=== PATIENT | male | born 1950 | race African-American/Black ===

== ENCOUNTER 2017-12-01 12:38 | Observation (INO) | payer MEDICARE, OTHER ==
--- NOTE | 2017-12-01 14:08 | RAD ---
CHEST 1 VIEW: Date: 12/01/17 HISTORY: Weakness. Dyspnea. COMPARISON: 01/02/17. FINDINGS: Cardiac silhouette is magnified by projection. Pulmonary vasculature unremarkable. Mediastinum is mid line. No lobar consolidation or evidence of pneumothorax. Deformity of the left humeral neck has the appearance of an incompletely healed fracture or injury. IMPRESSION: 1. No active cardiopulmonary abnormalities are demonstrated. 2. Abnormality of the left shoulder partially visualized. Correlation with recent shoulder injury hi story is required. POS: [facility]
[2017-12-01 14:20] LABS: #Basophils 0.1 thou/uL (0.0-0.2); #Eosinphils 0.1 thou/uL (0.0-0.7); #Lymphocytes 2.8 thou/uL (1.20-3.40); #Neutrophils 5.9 thou/uL (1.40-6.50); %Basophils 0.8 % (0.0-1.0); %Eosinophils 0.8 % (0.0-10.0); %Lymphocytes 28.4 % (21.0-51.0); %Monocytes 10.2 % (0.0-10.0); %Neutrophils 59.9 % (42.0-75.0); Hemoglobin 12.1 g/dL (14.0-18.0); Mean Corpuscular HGB CONC 32.7 g/dL (32.0-36.0); Mean Corpuscular Hemoglobin 31.1 pg (27.0-31.0); Platelet Count 334 thou/uL (130-400); RBC Distribution Width 12.7 % (11.5-14.5); White Blood Cell (WBC) Count 9.9 thou/uL (4.8-10.8)
[2017-12-01 14:40] LABS: ALT (SGPT) 9 U/L (8-55); AST (SGOT) 9 U/L (5-34); Albumin 3.8 g/dL (3.4-4.8); Alkaline Phosphatase 91 U/L (40-150); Anion Gap 11 mmol/L (10-20); BUN (Urea Nitrogen) 36 mg/dL (8.4-25.7); Bilirubin, Total 0.4 mg/dL (0.2-1.2); Calc. Creatinine Clearance 0 mL/min (70-130); Calcium 9.9 mg/dL (7.8-10.44); Carbon Dioxide 16 mmol/L (23-31); Chloride 112 mmol/L (98-107); Estimated GFR-MDRD 64; Globulin 3.7 g/dL (2.4-3.5); Glucose 99 mg/dL (80-115); Potassium 5.2 mmol/L (3.5-5.1); Protein, Total 7.5 g/dL (5.8-8.1); Sodium 134 mmol/L (136-145)
[2017-12-01 15:54] LABS: Bilirubin Negative (Negative); Blood, Urine Negative (Negative); Clarity CLEAR (Clear); Glucose, Urine (Dipstick) Negative (Negative); Leukocyte Trace (Negative); Nitrite Negative (Negative); Protein, Urine (Dipstick) 100 mg/dL (Neg-Trace); Specific Gravity, Urine 1.016 (1.002-1.036); Urobilinogen 0.2 mg/dL (0.2-1.0)
[2017-12-01 15:56] LABS: Bacteria/HPF None Seen HPF (None Seen); Hyaline Casts/LPF 4-6 HYALINE CAST LPF (0-3 Hyaline); Pathc Cast-AUWi Flag 1.16 (0-2.49); RBC/HPF 0-3 HPF (0-3); Squamous Epithelial None Seen HPF (0-3); WBC/HPF 0-3 HPF (0-3)
[2017-12-01] MEDS ORDERED: cefTRIAXone\\ROCEPHIN 1 GM VIAL ONE (16:14)
[2017-12-01] MEDS ORDERED: cefTRIAXone\\ROCEPHIN 1 GM in Sodium Chloride 0.9% 100 ML IVPB ONE (16:30)
[2017-12-01] MEDS ORDERED: Ondansetron ODT 4 MG TAB SL PRN (19:54)
[2017-12-01] MEDS ORDERED: Ondansetron HCl/PF 4 MG/2 ML Vial IVP PRN (19:54)
[2017-12-01 20:02] VITALS: BMI 26.6
[2017-12-01] MEDS ORDERED: traMADol HCl 50 MG TAB PO PRN (20:12)
[2017-12-01] MEDS ORDERED: Mag-Al 1200 mg/1200 mg/30 ML UDCUP PO PRN (20:12)
[2017-12-01] MEDS: Calcium Carbonate 500 MG ChewTAB PO PRN (20:34)
[2017-12-01] MEDS ORDERED: cloNIDine 0.1 MG TAB PO SCH (22:45)
[2017-12-02] MEDS ORDERED: traMADol HCl 50 MG TAB PO PRN ×2 (09:28→11:12)
[2017-12-02] MEDS ORDERED: Calcium Carbonate 500 MG ChewTAB PO PRN (11:12)
[2017-12-02] MEDS ORDERED: Non-Formulary Item 1 EACH (Acetaminophen [Tylenol] 650 MG) PO PRN (11:12)
[2017-12-02 12:02] LABS: Hemoglobin A1c 6.3 % (4.0-6.0)
[2017-12-02] MEDS: Lidocaine-Prilocaine 2.5% Cream 5 GM TUBE TOP PRN ×2 (12:42→20:38)
[2017-12-02 13:27] LABS: Anion Gap 14 mmol/L (10-20); BUN (Urea Nitrogen) 28 mg/dL (8.4-25.7); Calc. Creatinine Clearance 70 mL/min (70-130); Calcium 10.8 mg/dL (7.8-10.44); Carbon Dioxide 19 mmol/L (23-31); Chloride 110 mmol/L (98-107); Estimated GFR-MDRD 83; Glucose 177 mg/dL (80-115); Sodium 138 mmol/L (136-145)
[2017-12-02] MEDS: Sodium Chloride 0.9% 1,000 ML IV SCH (13:53)
[2017-12-02] MEDS: Brimonidine Tartrate 0.2% Ophth Soln 5 ml Bottle EA EYE SCH ×2 (15:15→20:37)
[2017-12-02] MEDS: Calcium Carbonate 500 MG ChewTAB PO PRN (15:18)
[2017-12-02] MEDS: metFORMIN 500 MG TAB PO SCH (17:06)
[2017-12-02] MEDS: Acetaminophen ER (8hr) 650 MG TAB PO SCH ×2 (17:06→20:37)
[2017-12-02] MEDS ORDERED: cefTRIAXone\\ROCEPHIN 1 GM in Sodium Chloride 0.9% 100 ML IVPB SCH (18:00)
[2017-12-02] MEDS ORDERED: Ondansetron HCl/PF 4 MG/2 ML Vial IVP PRN (18:06)
[2017-12-02] MEDS ORDERED: Ondansetron ODT 4 MG TAB PO PRN (18:06)
[2017-12-02] MEDS ORDERED: cloNIDine 0.1 MG TAB PO SCH ×2 (21:00)
[2017-12-02] MEDS ORDERED: Latanoprost 0.005% Ophth Soln 2.5 ml Bottle EA EYE SCH (21:00)
[2017-12-03] MEDS: Sodium Chloride 0.9% 1,000 ML IV SCH (02:24)
[2017-12-03] MEDS ORDERED: Ferrous Sulfate 325 MG TAB PO SCH (08:00)
[2017-12-03] MEDS ORDERED: Valsartan 80 MG TAB PO SCH (09:00)
[2017-12-03] MEDS ORDERED: Meloxicam 7.5 MG TAB PO SCH (09:00)
[2017-12-03] MEDS ORDERED: Carvedilol 25 MG TAB PO SCH (09:00)
[2017-12-03] MEDS ORDERED: Amlodipine 5 MG TAB PO SCH (09:00)
[2017-12-03] MEDS ORDERED: Famotidine 20 MG TAB PO SCH (09:00)
[2017-12-03] MEDS: metFORMIN 500 MG TAB PO SCH (10:11)
[2017-12-03] MEDS: Lidocaine-Prilocaine 2.5% Cream 5 GM TUBE TOP PRN (10:11)
[2017-12-03] MEDS: Acetaminophen ER (8hr) 650 MG TAB PO SCH (10:11)
[2017-12-03] MEDS: Brimonidine Tartrate 0.2% Ophth Soln 5 ml Bottle EA EYE SCH (10:12)
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
[2017-12-03 12:11] VITALS: BP 119/73; TEMP 97.9
--- NOTE | 2017-12-03 13:01 | SS ---
INITIAL CHIEF COMPLAINT: Weakness. HISTORY OF PRESENT ILLNESS: This is a 67-year-old male with a known history of prior stroke, prior h umeral fracture, type 2 diabetes, hypertension, and hyperlipidemia who presented with a chief complai nt of weakness. Patient also recounts that he had an episode of low blood pressure while going out f or smoke at his nursing facility where he resides. Subsequently, EMS was called for the patient to b e brought to our facility for further evaluation. As far as I can tell through the ER records and during this hospitalization, I am unable to find any documented vital signs demonstrating appreciable hypotension. It also appears that at some point in time, he felt "diaphoretic" and was noted to have a temperature of 99.0, but no documented fevers eit her. At the time of my initial evaluation, the patient's chief complaint was surrounding oral pain. The p atient states that he has two teeth in the back of his mouth that have "holes" in them and that they are extremely painful. REVIEW OF SYSTEMS: As per HPI. Constitutional: Chills as noted above without documented hypothermi a. No fevers. The patient denies any significant weight loss or gain in the last 3 months. HEENT: Denies any new headaches, vision changes, lightheadedness or dizziness. Positive for oral pain as d escribed above, which he characterizes as being dull and throbbing throughout. Cardiovascular: No c hest pain, no chest pressure, no left-sided arm numbness or tingling. Respiratory: No shortness of breath, no cough or congestion. Gastrointestinal: No nausea, no vomiting. The patient endorses ashley e intermittent, crampy abdominal discomfort without diarrhea or constipation. Musculoskeletal: No n ew myalgias or arthralgias, but the patient endorses easy fatigability. PAST MEDICAL AND SURGICAL HISTORY: As per above inclusive of hypertension, coronary artery disease, gastroesophageal reflux disease, type 2 diabetes, obstructive sleep apnea, prior history of cocaine a nd tobacco use, glaucoma with cataracts status post cataract removal of the left eye, status post her moi repair, status post right knee surgery. HOME MEDICATIONS: Please see the EMR for full details. His list currently appears to include the fo vickie, valsartan 320 mg p.o. daily, tramadol 50 mg p.o. q.6 hours p.r.n., acetaminophen 650 mg p.o. t.i.d., metformin 500 mg p.o. b.i.d., Meloxicam 7.5 mg p.o. daily, latanoprost 1 drop in each eye at bedtime, ferrous sulfate 325 mg p.o. daily, famotidine 40 mg p.o. daily, lidocaine/prilocaine 1 appl ication topically q.6 hours p.r.n., clonidine 0.1 mg p.o. at bedtime, carvedilol 25 mg p.o. daily, br imonidine tartrate 1 drop in each eye t.i.d., calcium carbonate 1 tab p.o. q.2 hours p.r.n., amlodipi ne besylate 5 mg p.o. daily. ALLERGIES: No known drug allergies. FAMILY HISTORY: The patient denies any known family history of recurrent dental infections. SOCIAL HISTORY: The patient is currently a resident of a nursing facility. No tobacco, no alcohol, n o illicit drug use that is endorsed by the patient at this point in time. PHYSICAL EXAMINATION: GENERAL: The patient is awake, alert, conversant, lying in the hospital bed in no acute distress, us ing his cell phone. HEENT: Normocephalic, atraumatic. Equal ocular motions are intact, slightly dry mucous membranes. CARDIOVASCULAR: S1, S2. Pulses 2+ bilateral upper extremities, no pitting pedal edema. RESPIRATORY: Reasonable air movement without conversational dyspnea. No overt wheezes, rales or rho nchi. Grossly clear to auscultation. ABDOMEN: Positive bowel sounds, soft, nontender to palpation. MUSCULOSKELETAL: Moving all 4 extremities. LABORATORY DATA AND IMAGING DATA: WBC 9.9, hemoglobin 12.1, hematocrit 37.0, platelets 334. Sodium 134, potassium 5.2, chloride 112, bicarbonate 16, BUN 36, creatinine 1.35, glucose 99. Hemoglobin A1 c 6.3. Lactic acid 1.7, calcium 9.9, total bilirubin 0.4, AST 9, ALT 9, alkaline phosphatase 91, tot al protein 7.5, albumin 3.8. UA is significant for 100 of protein and trace leukoesterase, with 4-6 hyaline casts. ASSESSMENT AND PLAN: A 67-year-old male who initially was presented with a chief complaint of genera lized weakness and subsequently endorsed oral pain. 1. Oral pain. The patient has a grossly poor dentition with numerous cavities and concern for odont ogenic infection. He was initially started on empiric ceftriaxone during this hospitalization and is currently planning to be discharged on a course of Augmentin. 2. Generalized fatigability and weakness, likely due to a component of deconditioning. The patient has been seen by Physical Therapy and will continue to work with them as tolerated. 3. Hypertension, stable. 4. Hyperlipidemia, stable. 5. Diabetes, stable. DISCHARGE DIAGNOSES: As per above. 1. Odontogenic infection. 2. Deconditioning. The patient was seen and examined on the day of discharge. DISPOSITION: The patient is being discharged back to his residential nursing facility. DISCHARGE INSTRUCTIONS: The patient is asked to follow up closely with his primary care provider. Jordan mohan will continue on his entire home medications with the addition of Augmentin 875 mg p.o. b.i.d. for 6 more days to complete a 7-day course of antibiotics. He is asked to follow up closely with his out patient team including his primary care provider. Thank you for asking me to care for your patient. Questions or concerns, please contact me at [facility].
[2017-12-03] MEDS ORDERED: Amoxicillin/Potassium Clav 875 MG TAB PO SCH (21:00)
== END 2017-12-03 14:50 ==
LOC: ERS 12:38 → 2SW 16:45
PROVIDERS: ADMIT Internal Medicine; ATTEND Internal Medicine
DX: R53.1 Weakness (principal); K08.89 Other specified disorders of teeth and supporting structures; E11.9 Type 2 diabetes mellitus without complications; I10 Essential (primary) hypertension; E78.5 Hyperlipidemia, unspecified; I25.10 Atherosclerotic heart disease of native coronary artery without angina pectoris; K21.9 Gastro-esophageal reflux disease without esophagitis; G47.33 Obstructive sleep apnea (adult) (pediatric); F17.210 Nicotine dependence, cigarettes, uncomplicated; Z86.73 Personal history of transient ischemic attack (TIA), and cerebral infarction without residual deficits; Z79.899 Other long term (current) drug therapy; Z79.84 Long term (current) use of oral hypoglycemic drugs; Z79.1 Long term (current) use of non-steroidal anti-inflammatories (NSAID)
CPT/HCPCS: 71045; 74177; 80048; 80053; 82962 ×3; 83036; 83605; 83690; 85025; 87040; 87086; 93005; 96361 ×2; 96365; 96366; 97116; 97139 ×2; 99285; G0378; G8978; G8979; G8980; 36415; 36416; 81003; 81015; A4216; J0696; J7050; Q0162

== ENCOUNTER 2018-07-11 14:42 | Observation (INO) | payer MEDICARE, OTHER ==
[2018-07-11 15:18] LABS: #Basophils 0.1 thou/uL (0.0-0.2); #Eosinphils 0.1 thou/uL (0.0-0.7); #Lymphocytes 3.9 thou/uL (1.20-3.40); #Monocytes 0.8 thou/uL (0.11-0.59); #Neutrophils 3.9 thou/uL (1.40-6.50); %Basophils 1.1 % (0.0-1.0); %Eosinophils 1.2 % (0.0-10.0); %Lymphocytes 44.8 % (21.0-51.0); %Monocytes 8.6 % (0.0-10.0); %Neutrophils 44.4 % (42.0-75.0); Hemoglobin 11.7 g/dL (14.0-18.0); Mean Corpuscular HGB CONC 32.9 g/dL (32.0-36.0); Mean Corpuscular Hemoglobin 31.7 pg (27.0-31.0); Mean Corpuscular Volume 96.2 fL (78.0-98.0); Mean Platelet Volume 7.1 fL (7.4-10.4); Platelet Count 388 thou/uL (130-400); RBC Distribution Width 11.8 % (11.5-14.5); Red Blood Cell (RBC) Count 3.68 mill/uL (4.70-6.10); White Blood Cell (WBC) Count 8.8 thou/uL (4.8-10.8)
[2018-07-11 15:42] LABS: ALT (SGPT) 12 U/L (8-55); AST (SGOT) 16 U/L (5-34); Albumin 4.1 g/dL (3.4-4.8); Alkaline Phosphatase 80 U/L (40-150); Anion Gap 12 mmol/L (10-20); BUN (Urea Nitrogen) 32 mg/dL (8.4-25.7); Bilirubin, Total 0.5 mg/dL (0.2-1.2); Calc. Creatinine Clearance 0 mL/min (70-130); Carbon Dioxide 21 mmol/L (23-31); Chloride 108 mmol/L (98-107); Estimated GFR-MDRD 42; Globulin 3.5 g/dL (2.4-3.5); Glucose 142 mg/dL (80-115); Protein, Total 7.6 g/dL (5.8-8.1); Sodium 137 mmol/L (136-145)
--- NOTE | 2018-07-11 16:13 | CT ---
CT BRAIN WITHOUT CONTRAST: Date: 07/11/18 HISTORY: Syncope. FINDINGS: Comparison made with exam of 12/12/17. Old infarctions in the right occipital lobe in the cerebellar hemispheres (left larger than right) ar e again seen. There is an old lacunar infarct in the right basal ganglia. No evidence of acute infarc t, hemorrhage, midline shift, or abnormal extra-axial fluid collections are seen. Changes of cortical atrophy and chronic small vessel ischemic disease are again seen. The ventricular size is appropriat e and the basilar cisterns are patent. The bony calvarium is intact. The visualized paranasal sinuses and mastoid air cells are well aerated. There is mild mucosal disease in the right maxillary sinus. IMPRESSION: No CT evidence of acute intracranial process. POS: [facility]
[2018-07-11 16:46] LABS: CKMB 2.2 ng/mL (0-6.6)
[2018-07-11] MEDS ORDERED: Aspirin Chewable 81 MG TAB ONE ×2 (17:19)
--- NOTE | 2018-07-11 17:55 | RAD ---
PORTABLE CHEST ONE VIEW: 07/11/2018 5:34 p.m. HISTORY: Syncope. COMPARISON: 12/12/2017 FINDINGS: The heart size is normal. The aorta is tortuous. The lungs are well expanded without focal areas of consolidation, pneumothorax, or pleural effusions. Deformity of the left humeral neck has the appea vamsi of an old, incompletely healed fracture. IMPRESSION: No acute process. POS: [facility]
[2018-07-11 18:48] LABS: Bilirubin Negative (Negative); Blood, Urine Negative (Negative); Clarity CLEAR (Clear); Glucose, Urine (Dipstick) Negative (Negative); Leukocyte Negative (Negative); Nitrite Negative (Negative); Protein, Urine (Dipstick) 100 mg/dL (Neg-Trace); Specific Gravity, Urine 1.018 (1.002-1.036); Urobilinogen 0.2 mg/dL (0.2-1.0); pH, Urine 5.5 (5.0-9.0)
[2018-07-11 18:51] LABS: Bacteria/HPF None Seen HPF (None Seen); RBC/HPF 0-3 HPF (0-3); Squamous Epithelial 0-3 HPF (0-3); WBC/HPF 0-3 HPF (0-3)
[2018-07-11] MEDS ORDERED: Senokot S 8.6-50 MG TAB PO PRN (18:52)
[2018-07-11] MEDS ORDERED: Bisacodyl 5 MG TAB PO PRN (18:52)
[2018-07-11] MEDS ORDERED: Acetaminophen 325 MG TAB PO PRN (18:52)
[2018-07-11] MEDS ORDERED: Dextrose 5% in Water 1,000 ML IV PRN (19:00)
[2018-07-11] MEDS ORDERED: HumaLOG 300 UNITS/3 ML VIAL SC PRN (19:00)
[2018-07-11] MEDS ORDERED: Dextrose 50% Abboject 50 ML SYRINGE SLOW IVP PRN (19:00)
[2018-07-11 19:02] LABS: Pathc Cast-AUWi Flag 4.36 (0-2.49)
[2018-07-11 19:03] LABS: Hyaline Casts/LPF NONE SEEN LPF (0-3 Hyaline); Manual Microscopic Reviewed? No Path Casts Seen
[2018-07-11 19:17] LABS: Troponin I 0.045 ng/mL (< 0.028)
[2018-07-11 19:38] VITALS: BMI 26.1
[2018-07-11] MEDS: Heparin 5,000 UNITS/ML VIAL SC SCH (20:45)
--- NOTE | 2018-07-11 20:52 | HP ---
CHIEF COMPLAINT: Syncope. HISTORY OF PRESENT ILLNESS: The patient is a very pleasant 68-year-old male with a past medical history of diabetes, CVA and hypertension, who presented to the hospital after a syncopal episode. The patient is a [facility] resident and at baseline, walks limitedly with a walker. The patient's rastafari member, who was at the bedside, stated that the patient was out talking with other rastafari members and he was on his walker when he told them that he just felt weak all over. At this time, the patient was taken down to sit down inside the rastafari, where he apparently had a syncopal and he passed out. The patient does not recall the passing out. The patient denied any diaphoresis, any nausea, vomiting, or any chest tightness or shortness of breath or any palpitation. He only felt that just generalized weakness everywhere. The patient recalls the EMS being there and the patient was more awake and alert in the ER. The patient had a similar episode about a week and half ago in this [facility] and he was out smoking. When he was standing, smoking with his walker, felt weak all over. At this time, the patient was sat down and he also passed out. He was taken to the ER; however, the patient was discharged home, stated that his blood pressure was low. The patient stated that a few days prior to this current incident, his right leg gave out and he fell also, but did not lose any consciousness. PAST MEDICAL HISTORY: 1. He has a history of reflux. 2. Diabetes type 2. 3. Obstructive sleep apnea. 4. History of drug use, currently not. 5. History of CVA, multiple times with no significant deficits. 6. Hypertension. PAST SURGICAL HISTORY: 1. He has had a hernia repair. 2. Right knee surgery. 3. Cataract surgery. ALLERGIES: HE HAS NO KNOWN DRUG ALLERGIES. MEDICATIONS: I do not have a list of his medications. I will need to call the [facility] for that. FAMILY HISTORY: Denies any history of heart disease or cancer. SOCIAL HISTORY: He currently is a [facility] resident. He smokes about 6 cigarettes a day. Denies any alcohol use or drug use; however, he did have a history of cocaine use in the past. REVIEW OF SYSTEMS: All negative except for the ones mentioned above in the HPI. PHYSICAL EXAMINATION: VITAL SIGNS: Temperature of 98.8, he is bradycardic at 56, blood pressure of 130/60 and 99% on room air. GENERAL: He is awake, alert, and oriented x3. Does not appear in distress. CV: S1, S2 present. No murmurs, rubs or gallops. HEENT: Normocephalic, atraumatic. Pupils equal and reactive to light. LUNGS: Clear to auscultation. No rhonchi or wheezes noted. ABDOMEN: Soft and nontender. Bowel sounds are present x2. EXTREMITIES: No edema. Pedal pulses are present x2. He does have a scar over his right knee. NEUROVASCULAR: No focal deficits noted. SKIN: No cuts, lesions or bruises noted. LABORATORY RESULTS: As of the following: WBCs of 8.8, hemoglobin 11.7, hematocrit 35.4, platelets of 388. Chemistry: Sodium of 137, potassium of 4.0, BUN of 32, creatinine of 1.95, sugar is 142. His troponin is mildly elevated at 0.053. LFTs are normal. His urine currently is pending. He did have a CT head and a chest x-ray. CT head did not indicate any acute abnormalities; however, it is noted to have an old infarct in the right occipital area and the cerebellum. He also had a chest x-ray, which did not indicate any acute abnormalities. His EKG indicated sinus randall, but it was regular. ASSESSMENT AND PLAN: The patient is a 68-year-old male, who comes to the hospital with syncopal episode. 1. Syncope. Differential will be cardiac versus vasovagal versus neurogenic. We will get a carotid Dopplers. We will get an echocardiogram. His last echo was back in 2014 and appeared to be fairly normal. His EF at that time was 50% to 55%. No significant valvular abnormalities were also noted. We will also get orthostatics on this patient. We will also make sure he does not have any infectious process, so we will get a UA and may be his medications need to be addressed. If he is on a beta-carissa, it could be possible that he is becoming bradycardic, which is causing his syncopal episode. Also, I do not have a medication list currently, but it was noted that he was on carvedilol in the past. He has not had any recent medication adjustments per the patient. No new medications were added. 2. History of diabetes. We will continue to do Accu-Cheks a.c. and at bedtime and put him on a sliding scale insulin. 3. History of hypertension. We will continue to monitor. The patient does take clonidine, he takes that at his [facility]. 4. Cerebrovascular accident. I am not sure if the patient takes an aspirin, however, aspirin would be beneficial for this patient. 5. Deep venous thrombosis prophylaxis. We will put the patient on subcu heparin versus Lovenox. Job ID: [id number]
[2018-07-11 21:54] LABS: Troponin I 0.048 ng/mL (< 0.028)
[2018-07-12] MEDS ORDERED: hydrALAZINE 20 MG/ML VIAL SLOW IVP PRN (01:07)
[2018-07-12 05:21] LABS: #Basophils 0.1 thou/uL (0.0-0.2); #Eosinphils 0.1 thou/uL (0.0-0.7); #Lymphocytes 4.7 thou/uL (1.20-3.40); #Monocytes 0.9 thou/uL (0.11-0.59); #Neutrophils 4.4 thou/uL (1.40-6.50); %Eosinophils 1.1 % (0.0-10.0); %Lymphocytes 45.8 % (21.0-51.0); %Neutrophils 43.2 % (42.0-75.0); Hemoglobin 12.2 g/dL (14.0-18.0); Mean Corpuscular Hemoglobin 31.8 pg (27.0-31.0); Mean Corpuscular Volume 96.4 fL (78.0-98.0); Mean Platelet Volume 7.5 fL (7.4-10.4); Platelet Count 418 thou/uL (130-400); RBC Distribution Width 11.9 % (11.5-14.5); Red Blood Cell (RBC) Count 3.84 mill/uL (4.70-6.10); White Blood Cell (WBC) Count 10.3 thou/uL (4.8-10.8)
[2018-07-12] MEDS ORDERED: Acetaminophen 325 MG TAB PO PRN (05:37)
[2018-07-12] MEDS: Diabetic Tussin 200 MG/10 ML UDCUP PO PRN ×2 (05:41→12:14)
[2018-07-12 05:50] LABS: Anion Gap 16 mmol/L (10-20); BUN (Urea Nitrogen) 25 mg/dL (8.4-25.7); Calc. Creatinine Clearance 59 mL/min (70-130); Calcium 10.2 mg/dL (7.8-10.44); Carbon Dioxide 18 mmol/L (23-31); Chloride 108 mmol/L (98-107); Estimated GFR-MDRD 71; Glucose 70 mg/dL (80-115); Potassium 4.3 mmol/L (3.5-5.1); Sodium 138 mmol/L (136-145)
--- NOTE | 2018-07-12 07:42 | ULT ---
CAROTID ULTRASOUND WITH ROBLERO SCALE AND DOPPLER DUPLEX COLOR FLOW IMAGING SPECTRAL ANALYSIS PERFORMED: CLINICAL INDICATION: Syncope FINDINGS: There is scattered mild atherosclerotic calcification of the carotid arteries. PEAK SYSTOLIC VELOCITY (CM/S): Right CCA 59 Left CCA 79 Right ICA 64 Left ICA 57 There is antegrade bilateral flow within the visualized bilateral vertebral arteries. IMPRESSION: 1. No hemodynamically significant stenosis of the right internal carotid artery. 2. No hemodynamically significant stenosis of the left internal carotid artery. POS: [facility]
[2018-07-12] MEDS: Heparin 5,000 UNITS/ML VIAL SC SCH ×2 (08:56→14:47)
[2018-07-12] MEDS ORDERED: Enoxaparin Sodium 40 MG/0.4 ML SYRINGE SC SCH (09:00)
--- NOTE | 2018-07-12 09:36 | PDOC.PN ---
- Subjective Encounter Start Date: 07/12/18 Encounter Start Time: 11:00 Subjective: Patient without new complaint. No CP. No SOB. No dizziness. Ambulating -: normally. Just chronic left shoulder pain he would like his normal pain med -: for. - Objective Resuscitation Status - Order Detail: 07/11/18 18:52 Resuscitation Status Routine Resuscitation Status: FULL: Full Resuscitation MAR Reviewed: Yes Vital Signs & Weight: Vital Signs (12 hours) Temp Pulse Resp BP BP BP Pulse Ox 07/12/18 07:45 98.8 F 67 16 143/82 H 97 07/12/18 04:17 98.0 F 82 15 172/89 H 98 07/12/18 01:13 67 184/86 H 07/11/18 23:35 98.4 F 67 12 184/86 H 92 L Weight Weight 161 lb 12.8 oz I&O: 07/11/18 07/12/18 07/13/18 06:59 06:59 06:59 Intake Total 360 Output Total 525 Balance -165 Result Diagrams: 07/12/18 04:40 07/12/18 04:40 Additional Labs: Accuchecks 07/12/18 07/11/18 07/11/18 05:47 20:37 14:50 POC Glucose 80 113 H 154 H Phys Exam - Physical Examination Constitutional: NAD HEENT: moist MMs Respiratory: no wheezing, no rales, no rhonchi Cardiovascular: RRR, no significant murmur Gastrointestinal: soft, positive bowel sounds Musculoskeletal: no edema Neurological: non-focal, moves all 4 limbs Psychiatric: normal affect, A&O x 3 Dx/Plan (1) Syncope Code(s): R55 - SYNCOPE AND COLLAPSE Status: Acute Comment: likely due to orthostasis vs. vasovagal syncope, CT neg for acute changes just old strokes, carotid dopplers negative, ECHO pending (2) Hypertension Code(s): I10 - ESSENTIAL (PRIMARY) HYPERTENSION Status: Chronic Qualifiers: Hypertension type: essential hypertension Qualified Code(s): I10 - Essential (primary) hypertension Comment: elevated at rest, drops when sitting up or standing, will decrease Carvedilol (3) Bradycardia Code(s): R00.1 - BRADYCARDIA, UNSPECIFIED Status: Chronic Comment: mild in ER, in 60s overnight, suspect medication effect, decrease Carvedilol to 12.5mg BID (4) Elevated troponin Code(s): R74.8 - ABNORMAL LEVELS OF OTHER SERUM ENZYMES Status: Chronic Comment: indeterminate, actually low compared to patient's baseline (5) DM type 2 (diabetes mellitus, type 2) Status: Chronic Qualifiers: 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 No evidence -: of acute stroke, IN, or infection at this time. Needs outpatient -: cardiology followup. * . - Discharge Day Encounter end time: 11:20
[2018-07-12] MEDS ORDERED: Lidocaine-Prilocaine 2.5% Cream 5 GM TUBE TOP PRN (09:42)
[2018-07-12] MEDS ORDERED: traMADol HCl 50 MG TAB PO PRN (09:42)
[2018-07-12] MEDS ORDERED: Acetaminophen/Codeine 30-300mg Tablet PO PRN (09:42)
[2018-07-12] MEDS ORDERED: Aspirin 81 mg Enteric Coated Tablet PO SCH (09:45)
[2018-07-12 11:51] VITALS: TEMP 98.1
[2018-07-12] MEDS ORDERED: guaiFENesin 100 MG/5 ML UDCUP PO SCH (12:00)
[2018-07-12] MEDS ORDERED: guaiFENesin 200 MG TAB PO PRN (12:00)
[2018-07-12 12:08] VITALS: BP 136/87
[2018-07-12] MEDS ORDERED: Brimonidine Tartrate 0.2% Ophth Soln 5 ml Bottle EA EYE SCH (15:00)
[2018-07-12] MEDS ORDERED: metFORMIN 500 MG TAB PO SCH (17:00)
[2018-07-12] MEDS ORDERED: Carvedilol 6.25 MG TAB PO SCH (17:00)
[2018-07-12] MEDS ORDERED: Carvedilol 25 MG TAB PO SCH (21:00)
[2018-07-12] MEDS ORDERED: Latanoprost 0.005% Ophth Soln 2.5 ml Bottle EA EYE SCH (21:00)
[2018-07-12] MEDS ORDERED: Sodium Chloride 5% Opth 15 ML BOT EA EYE SCH (21:00)
[2018-07-12] MEDS ORDERED: SODIUM CHLORIDE 5% EA EYE SCH (21:00)
[2018-07-12] MEDS ORDERED: OPTH EA EYE SCH (21:00)
--- NOTE | 2018-07-12 22:54 | DIS ---
DATE OF ADMISSION: 07/11/2018 DATE OF DISCHARGE: 07/12/2018 REASON FOR ADMISSION: Syncope. DISCHARGE DIAGNOSES: 1. Syncope. 2. Orthostasis. 3. Bradycardia. 4. Hypertension. 5. Indeterminate troponin at baseline. 6. Diabetes mellitus, type 2, on insulin. 7. History of previous stroke. PROCEDURES: 1. CT of the brain without contrast showing old strokes, but no acute changes. 2. Carotid Dopplers showing no evidence of hemodynamically significant stenosis. 3. Echocardiogram report pending. CONSULTATIONS: None. SUMMARY OF HOSPITAL COURSE: This is a 68-year-old white male with a history of diabetes, previous stroke, hypertension, and coronary artery disease, whose is a care home resident. He presented after a syncopal episode at [facility], had a similar one about 2 weeks ago. He has felt weak all over and then passed out after sitting down. The last time it happened was while he was outside smoking. The patient has been admitted in the hospital on observation. He did have some mild orthostasis. Normally, he has had the hypertension while lying at rest, but his blood pressure drops to the 120s to 130s with sitting and standing up. He noted that as a mild bradycardia initially as well. It remained in sinus rhythm in the low 60s during the hospitalization. The patient did have CT scan and carotid Dopplers as above. An echocardiogram, which has been not read yet. His troponins remained lower than baseline and he was asymptomatic overnight without any events on his telemetry monitoring. In the morning, he was able to stand up without dizziness and ambulate normally to the bathroom and so he is being discharged home. We are going to decrease his carvedilol due to mild bradycardia and then have him follow up with his primary care doctor. He also has seen Dr. Cruz many years ago for cardiac cath, so that he will follow up with him in the clinic about the echocardiogram. DISCHARGE MANAGEMENT: Discharged back to [facility]. ACTIVITY: As tolerated. Continue occupational and physical therapy. DIET: Healthy heart, low-sodium diet. FOLLOWUP: Follow up with Dr. Cruz in 2 weeks and with primary care doctor in the next 1 to 2 weeks. DISCHARGE MEDICATIONS: 1. Aspirin 81 mg daily, 30 tablets dispensed, new medication, due to his previous history of strokes. 2. Carvedilol 12.5 mg twice a day, 60 tablets dispensed. 3. Continue Tylenol with Codeine as needed for pain. 4. Continue Tylenol as needed. 5. Amlodipine 5 mg daily. 6. Alphagan ophthalmic solution 3 times a day. 7. Famotidine 40 mg daily. 8. Ferrous sulfate 325 mg daily. 9. Guaifenesin as needed for cough. 10. Latanoprost ophthalmic each night. 11. Lidocaine/prilocaine cream applied as needed. 12. Losartan 100 mg daily. 13. Metformin 500 mg twice a day. 14. Sodium chloride ophthalmic ointment as needed. 15. Tramadol as needed. Job ID: [id number]
[2018-07-13] MEDS ORDERED: Amlodipine 5 MG TAB PO SCH (09:00)
[2018-07-13] MEDS ORDERED: Ferrous Sulfate 325 MG TAB PO SCH (09:00)
[2018-07-13] MEDS ORDERED: Losartan 25 MG TAB PO SCH (09:00)
[2018-07-13] MEDS ORDERED: Famotidine 20 MG TAB PO SCH (09:00)
[2018-07-13] MEDS ORDERED: Aspirin 81 mg Enteric Coated Tablet PO SCH (09:00)
== END 2018-07-12 15:45 ==
LOC: ERS 14:42 → 2SW 17:27
PROVIDERS: ADMIT Internal Medicine; ATTEND Internal Medicine
DX: R55 Syncope and collapse (principal); I95.1 Orthostatic hypotension; R00.1 Bradycardia, unspecified; I10 Essential (primary) hypertension; E11.9 Type 2 diabetes mellitus without complications; I25.10 Atherosclerotic heart disease of native coronary artery without angina pectoris; K21.9 Gastro-esophageal reflux disease without esophagitis; G47.33 Obstructive sleep apnea (adult) (pediatric); F17.210 Nicotine dependence, cigarettes, uncomplicated; Z86.73 Personal history of transient ischemic attack (TIA), and cerebral infarction without residual deficits; Z79.82 Long term (current) use of aspirin; Z79.84 Long term (current) use of oral hypoglycemic drugs; Z79.4 Long term (current) use of insulin; Z79.899 Other long term (current) drug therapy; Z98.890 Other specified postprocedural states
CPT/HCPCS: 70450; 71045; 80048; 80053; 82553; 82962 ×2; 84484 ×2; 85025 ×2; 93005; 93306; 93880; 96374; 97116; 97139; 99285; G0378 ×2; 36415; 36416; 81003; 81015; J0360; J1644

== ENCOUNTER 2018-07-27 16:41 | Emergency (ER) | payer MEDICARE, OTHER ==
[2018-07-27 17:27] LABS: #Basophils 0.2 thou/uL (0.0-0.2); #Eosinphils 0.2 thou/uL (0.0-0.7); #Monocytes 0.9 thou/uL (0.11-0.59); #Neutrophils 3.8 thou/uL (1.40-6.50); %Eosinophils 2.1 % (0.0-10.0); %Lymphocytes 49.4 % (21.0-51.0); %Monocytes 8.8 % (0.0-10.0); %Neutrophils 37.6 % (42.0-75.0); Hemoglobin 11.5 g/dL (14.0-18.0); Mean Corpuscular HGB CONC 32.7 g/dL (32.0-36.0); Mean Corpuscular Hemoglobin 31.4 pg (27.0-31.0); Mean Corpuscular Volume 95.8 fL (78.0-98.0); Mean Platelet Volume 8.2 fL (7.4-10.4); Platelet Count 332 thou/uL (130-400); RBC Distribution Width 11.9 % (11.5-14.5); Red Blood Cell (RBC) Count 3.68 mill/uL (4.70-6.10); White Blood Cell (WBC) Count 10.2 thou/uL (4.8-10.8)
--- NOTE | 2018-07-27 17:34 | CT ---
CT BRAIN WITHOUT CONTRAST: 07/27/18 HISTORY: Stroke. Left sided facial droop. COMPARISON: CT brain 07/01/17. FINDINGS: There are multifocal old infarcts. Old left inferior cerebellar infarct and right MCA territory infar ction. 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 No new acute superimposed hemorrhage or infarction. Modera te atrophy. No midline shift or mass effect. The paranasal sinuses and mastoids are clear. IMPRESSION: Extensive chronic findings. No acute hemorrhage or infarct. Code CR - nurse notified at 5:08 p.m. POS: [facility]
--- NOTE | 2018-07-27 17:45 | RAD ---
CHEST ONE VIEW 07/27/18 COMPARISON: 07/11/18. HISTORY: Altered mental status. FINDINGS: Slight elongation of the aorta. Normal cardiac silhouette Pulmonary vessels are slightly prominent. C hronic changes, without consolidation or mass. No pneumothorax or acute osseous abnormalities. Chroni c changes in the proximal left humerus. IMPRESSION: No acute cardiopulmonary process. POS: [facility]
[2018-07-27 17:49] LABS: ALT (SGPT) 10 U/L (8-55); AST (SGOT) 12 U/L (5-34); Albumin 3.7 g/dL (3.4-4.8); Alkaline Phosphatase 84 U/L (40-150); Anion Gap 12 mmol/L (10-20); BUN (Urea Nitrogen) 23 mg/dL (8.4-25.7); Bilirubin, Total 0.2 mg/dL (0.2-1.2); CK (CPK) 68 U/L (30-200); Calc. Creatinine Clearance 0 mL/min (70-130); Calcium 10.1 mg/dL (7.8-10.44); Carbon Dioxide 20 mmol/L (23-31); Chloride 109 mmol/L (98-107); Estimated GFR-MDRD 68; Globulin 3.8 g/dL (2.4-3.5); Glucose 106 mg/dL (80-115); Lipase 30 U/L (8-78); Potassium 4.1 mmol/L (3.5-5.1); Protein, Total 7.5 g/dL (5.8-8.1); Sodium 137 mmol/L (136-145)
[2018-07-27 18:40] LABS: Bilirubin Negative (Negative); Blood, Urine Negative (Negative); Clarity CLEAR (Clear); Glucose, Urine (Dipstick) Negative (Negative); Leukocyte Negative (Negative); Nitrite Negative (Negative); Protein, Urine (Dipstick) 100 mg/dL (Neg-Trace); Specific Gravity, Urine 1.015 (1.002-1.036); Urobilinogen 0.2 mg/dL (0.2-1.0); pH, Urine 5.5 (5.0-9.0)
[2018-07-27 18:41] LABS: Bacteria/HPF None Seen HPF (None Seen); Hyaline Casts/LPF 0-3 HYALINE CAST LPF (0-3 Hyaline); RBC/HPF None Seen HPF (0-3); Squamous Epithelial None Seen HPF (0-3); WBC/HPF None Seen HPF (0-3)
== END 2018-07-27 19:50 ==
LOC: ERS 16:41
DX: G45.9 Transient cerebral ischemic attack, unspecified (principal); E11.9 Type 2 diabetes mellitus without complications; E78.5 Hyperlipidemia, unspecified; I10 Essential (primary) hypertension; F17.210 Nicotine dependence, cigarettes, uncomplicated; Z79.4 Long term (current) use of insulin
CPT/HCPCS: 36415; 36416; 70450; 71045; 80053; 81003; 81015; 82140; 82550; 82553; 83605; 83690; 83880; 84443; 84484; 85025; 87040; 93005

== ENCOUNTER 2018-07-29 12:05 | Inpatient (IN) | payer MEDICARE, OTHER ==
[2018-07-29 13:00] LABS: #Basophils 0.1 thou/uL (0.0-0.2); #Eosinphils 0.2 thou/uL (0.0-0.7); #Lymphocytes 3.9 thou/uL (1.20-3.40); #Monocytes 0.7 thou/uL (0.11-0.59); #Neutrophils 4.1 thou/uL (1.40-6.50); %Eosinophils 1.9 % (0.0-10.0); %Lymphocytes 43.7 % (21.0-51.0); %Monocytes 7.9 % (0.0-10.0); %Neutrophils 45.5 % (42.0-75.0); Hemoglobin 11.6 g/dL (14.0-18.0); Mean Corpuscular HGB CONC 32.9 g/dL (32.0-36.0); Mean Corpuscular Hemoglobin 32.3 pg (27.0-31.0); Mean Platelet Volume 7.9 fL (7.4-10.4); Platelet Count 322 thou/uL (130-400)
[2018-07-29 13:09] LABS: PTT 31.8 SEC (22.9-36.1)
--- NOTE | 2018-07-29 13:11 | RAD ---
AP CHEST: History: Altered mental status. Date: 07-29-18 Comparison: 07-27-18 FINDINGS: AP chest demonstrates EKG leads seen over the chest. The lungs are well aerated. No evidence of activ e intrathoracic disease is seen. No evidence of effusions, pneumonia or pneumothorax seen. IMPRESSION: Unremarkable AP view chest. POS: [facility]
[2018-07-29 13:14] LABS: Prothrombin Time 13.3 SEC (12.0-14.7)
[2018-07-29 13:16] LABS: ALT (SGPT) 8 U/L (8-55); AST (SGOT) 12 U/L (5-34); Albumin 3.8 g/dL (3.4-4.8); Alkaline Phosphatase 87 U/L (40-150); Anion Gap 12 mmol/L (10-20); BUN (Urea Nitrogen) 21 mg/dL (8.4-25.7); Bilirubin, Total 0.4 mg/dL (0.2-1.2); CK (CPK) 77 U/L (30-200); Calc. Creatinine Clearance 0 mL/min (70-130); Calcium 10.1 mg/dL (7.8-10.44); Carbon Dioxide 22 mmol/L (23-31); Chloride 110 mmol/L (98-107); Estimated GFR-MDRD 64; Globulin 3.3 g/dL (2.4-3.5); Glucose 115 mg/dL (80-115); Potassium 4.2 mmol/L (3.5-5.1); Protein, Total 7.1 g/dL (5.8-8.1); Sodium 140 mmol/L (136-145)
[2018-07-29 13:37] LABS: CKMB 1.7 ng/mL (0-6.6)
[2018-07-29] MEDS ORDERED: Aspirin 325 MG TAB ONE (14:04)
[2018-07-29] MEDS ORDERED: Activated Charcoal/Sorbitol 25 GM/120 ML TUBE ONE (14:04)
--- NOTE | 2018-07-29 14:19 | CT ---
CT OF THE BRAIN WITHOUT CONTRAST: INDICATION: History of facial droop with worsening left side weakness. COMPARISON: Prior exam dated 07/27/2018. FINDINGS: No acute infarct, hemorrhage, or hydrocephalus is present. The remote infarcts involving the right b savanna ganglia, right occipital lobe, and cerebellar hemispheres are stable. No definite acute infarct , hemorrhage, or hydrocephalus is present. Septum pellucidum and third ventricle are midline. The s kull and extracranial soft tissues appear within normal limits. IMPRESSION: Stable chronic ischemic change. No definite acute intracranial abnormality. POS: [facility]
[2018-07-29] MEDS ORDERED: HumaLOG 300 UNITS/3 ML VIAL SC PRN (14:46)
[2018-07-29] MEDS ORDERED: Dextrose 50% Abboject 50 ML SYRINGE SLOW IVP PRN (14:46)
[2018-07-29] MEDS ORDERED: Acetaminophen 325 MG TAB PO PRN (14:46)
[2018-07-29] MEDS ORDERED: Ondansetron ODT 4 MG TAB PO PRN (14:46)
[2018-07-29] MEDS ORDERED: Dextrose 5% in Water 1,000 ML IV PRN (14:46)
--- NOTE | 2018-07-29 15:46 | HP ---
PRIMARY CARE PROVIDER: Dr. Harrison. [facility] call admission for [facility]. Referred to the [facility] Hospitalist Service for possible TIA. HISTORY OF PRESENT ILLNESS: The patient is indeed a poor historian. He is weak on the left side. He states he thinks he had a stroke several days ago. He admits to multiple strokes in the past. He states his left leg is weaker. 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 He has had several falls lately. Noted to have a left facial droop. No dizziness or fainting and no visual change. PAST MEDICAL HISTORY: Pertinent for multiple strokes in the past including a right middle cerebral artery stroke, a right posterior cerebral artery stroke. He has a history of type 2 diabetes, hypertension, coronary artery disease with a cardiac cath multiple years ago, history of tobacco abuse, drug abuse. He currently states he is not using any drugs. History of obstructive sleep apnea. PAST SURGICAL HISTORY: Includes a hernia repair, cataract surgery bilateral, and right knee surgery. CURRENT MEDICATIONS: 1. Amlodipine 5 mg a day. 2. Aspirin 81 mg a day. 3. Brimonidine tartrate solution 0.2% one drop both eyes 3 times a day. 4. Coreg 12.5 mg b.i.d. 5. Pepcid 40 mg a day. 6. Ferrous sulfate 325 mg a day. 7. Humulin R on a sliding scale. 8. Losartan 100 mg a day. 9. Meloxicam 7.5 mg 2 times a day for pain. 10. Metformin 500 mg p.o. t.i.d. 11. Tramadol 50 mg every 6 hours as needed for pain. ALLERGIES: NO KNOWN DRUG ALLERGIES. FAMILY HISTORY: Denies any history of heart disease, cancer, diabetes in his family. SOCIAL HISTORY: Resident of a [facility]ci. Smokes less than 10 cigarettes a day. Denies current alcohol or drug use. Has a history of cocaine in the past. Expresses not understanding of cessations status, have no contacts, whom I am able to contact and he will be full code on that basis. REVIEW OF SYSTEMS: GENERAL: No headaches, dizziness, fainting. EYES: He has blurry vision. History of glaucoma. No double vision or flashing lights. EAR, NOSE, AND THROAT: No ear pain or drainage. No nasal bleeding. No trouble swallowing. CARDIAC: No chest pain, orthopnea, or paroxysmal nocturnal dyspnea. RESPIRATIONS: He has a minimal dry cough. No history of asthma, wheezing. GASTROINTESTINAL: No nausea, vomiting, diarrhea, constipation, or abdominal pain. GENITOURINARY: No hematuria or dysuria. MUSCULOSKELETAL: No pain or swelling in his legs. NEUROLOGICAL: He has weakness in his left arm and left leg. He also has a history of a fracture of his left shoulder and states he has been in a sling and unable to raise his left arm from the shoulder up since that time. PSYCHIATRIC: No history of anxiety or depression. SKIN: No bruising, bleeding, or rash. HEME/LYMPH: No tender or swollen lymph nodes in axilla, inguinal, or cervical area. PHYSICAL EXAMINATION: GENERAL: The patient is alert, oriented gentleman, cooperative. VITAL SIGNS: Blood pressure 173/91, pulse 68, respirations 12, temperature 98.3, room air sat 99%. HEAD, EYES, EARS, NOSE, AND THROAT: Revealed pupils are equal, round, and reactive. Extraocular movements are intact. Sclerae are white. Tympanic membranes clear. Nose clear. Oral mucous membranes are wet. He has missing teeth. NECK: No jugular venous distention, adenopathy, or thyromegaly. CHEST: Clear to auscultation and percussion. HEART: Regular rate and rhythm. First and second heart sounds are clear. There are no appreciated murmurs or gallops. ABDOMEN: Soft. Bowel sounds normal. No hepatosplenomegaly. No masses. No rebound. No bruits. EXTREMITIES: No cyanosis, clubbing, or edema. PULSES: Carotid, radial, femoral, and dorsalis pedis pulses palpable and symmetric. SKIN: No bruising, bleeding, or rash. HEME/LYMPH: No tender or swollen lymph nodes in the axilla, inguinal, or cervical area. No petechial hemorrhages on his extremities or nail beds. NEUROLOGICAL: Withdrawal to plantar stimulation. Increased deep tendon reflex in the left leg compared to the right. Decreased strength in the left leg compared to the right, difficult to quantitate. Right arm has normal reflexes to use. Left arm, he is unable to raise it. He has decreased sample weaver strength and decreased strength at the wrist. Deep tendon reflexes on the biceps were difficult to assess. Brain CT; old right middle cerebral artery infarct, an old infarct in the right occipital area, an old infarct in the left cerebellar area, reviewed by me. Chest x-ray reviewed by me; no cardiomegaly, CHF, or infiltrate. DIAGNOSTIC STUDIES: EKG; regular sinus rhythm. No ST-T abnormality. Reviewed by me. LABORATORY DATA: CBC; hemoglobin 11.6, white count 9.0, platelet count 322,000. Comprehensive metabolic profile; creatinine 1.34, BUN 21, chloride 110, carbon dioxide 22, otherwise unremarkable. ADMITTING DIAGNOSES: 1. Old right middle cerebral artery infarct with weakness in the same range. We will increase aspirin from 81 mg a day to 325 and obtain MRI. 2. Diabetes mellitus type 2. We will continue sliding scale. 3. Hypertension, coronary artery disease, tobacco abuse. Continue selected home medicines. Job ID: [id number]
--- NOTE | 2018-07-29 16:11 | MRI ---
MRI OF BRAIN WITHOUT CONTRAST: 07/29/18 HISTORY: Stroke. COMPARISON: Multiple prior CT examinations. FINDINGS: Diffusion weighted sequence there is an acute infarction of the right basal ganglia involving the put amen and extending into the right robb radiata periventricular. This is confirmed on the ADC map. On the susceptibility weighted imaging sequence there is calcifications of the basal ganglia bilatera lly. No acute hemorrhage. Extensive atrophy. Multiple prior old infarctions. The [place] flow voids are maintained. IMPRESSION: Acute infarction of the right posterior putamen extending to the robb radiata, a small infarction. Code T POS: GEOVANY
--- NOTE | 2018-07-29 17:32 | PDOC.EVN ---
Event Note - Event Note Event Note: MRI acute CVA chaged to inpatient
[2018-07-29 19:43] VITALS: BMI 26.5
--- NOTE | 2018-07-29 23:27 | CON ---
DATE OF CONSULTATION: 07/29/2018 CONSULTING PHYSICIAN: Hospitalist Service. IMPRESSION: 1. Lacunar infarction in the right caudate and robb radiata region. 2. Prior right occipital stroke. 3. Prior right parietal stroke. 4. Extensive small-vessel ischemic changes. PLAN: 1. Add a statin to address his hyperlipidemia. 2. Continue aspirin. HISTORY OF PRESENT ILLNESS: Mr. Washington is a 68-year-old gentleman who is currently a jail resident. He has prior history of stroke and some degree of disability from this, which he reports he remain reasonably independent at the jail. He developed some increased left-sided weakness which necessitated his admission. His MRIs had evidence of acute ischemia in the right caudate region. He had a recent carotid ultrasound and echocardiogram, both of which were unremarkable. He was taking a statin before he moved into the jail, but it was inadvertently discontinued. PAST MEDICAL HISTORY: Stroke, hypertension. FAMILY HISTORY: Noncontributory. SOCIAL HISTORY: Positive tobacco use. No alcohol use. ALLERGIES: NONE REPORTED. REVIEW OF SYSTEMS: A 10-system review of systems is otherwise negative. PHYSICAL EXAMINATION: VITAL SIGNS: Stable. He is afebrile. HEENT: Pupils are equal and reactive. Conjunctivae clear. Oropharynx is clear. NECK: Supple. EXTREMITIES: No cyanosis, clubbing, or edema. NEUROLOGIC: He was alert and cooperative. His speech was mildly dysarthric. Cranial nerve exam showed a left homonymous hemianopsia. He has a left facial droop also. Motor exam showed only 2/5 to 3/5 strength in the left arm. He had good strength in the left leg. Sensation was intact. abnormal movements were seen. Gait was not tested. IMAGING STUDIES: EKG showed normal sinus rhythm. SUMMARY: This is a 68-year-old gentleman with recurrent small vessel stroke superimposed on prior larger strokes. I would address his hyperlipidemia and continue aspirin therapy. He can receive physical therapy back at the jail through alf unit. He appears stable for discharge. Job ID: [id number]
[2018-07-30 06:06] LABS: Anion Gap 12 mmol/L (10-20); BUN (Urea Nitrogen) 18 mg/dL (8.4-25.7); Calc. Creatinine Clearance 78 mL/min (70-130); Calcium 9.9 mg/dL (7.8-10.44); Carbon Dioxide 21 mmol/L (23-31); Cardiac Risk 6.6 (Less than 4.5); Chloride 110 mmol/L (98-107); Cholesterol 177 mg/dl (< 200 Desired); Estimated GFR-MDRD Greater than 90; Glucose 84 mg/dL (80-115); HDL Cholesterol 27 mg/dL (>60 Neg Risk); LDL Cholesterol, Calculated 129 mg/dL; Potassium 3.7 mmol/L (3.5-5.1); Sodium 139 mmol/L (136-145); Triglycerides 103 mg/dL (Less than 150)
[2018-07-30 06:38] LABS: Band 1 % (5-11); Hemoglobin 11.7 g/dL (14.0-18.0); Lymphocytes 54 % (21-51); MDiff Complete? YES; Mean Corpuscular HGB CONC 31.8 g/dL (32.0-36.0); Mean Corpuscular Hemoglobin 30.9 pg (27.0-31.0); Mean Corpuscular Volume 97.3 fL (78.0-98.0); Mean Platelet Volume 7.9 fL (7.4-10.4); Monocytes 3 % (0-10); Neutrophil 42 % (42-75); Platelet Count 337 thou/uL (130-400); Platelet Morphology Comment Appears Adequate; RBC Distribution Width 11.8 % (11.5-14.5); White Blood Cell (WBC) Count 8.9 thou/uL (4.8-10.8)
[2018-07-30] MEDS ORDERED: Lidocaine-Prilocaine 2.5% Cream 5 GM TUBE TOP PRN (08:27)
[2018-07-30] MEDS ORDERED: GUAIFENESIN 400 MG PO PRN (08:27)
[2018-07-30] MEDS ORDERED: Acetaminophen ER (8hr) 650 MG TAB PO PRN (08:27)
[2018-07-30] MEDS ORDERED: guaiFENesin 200 MG TAB PO PRN (08:38)
[2018-07-30] MEDS ORDERED: Non-Formulary Item 1 EACH (Famotidine [Famotidine] 40 MG) PO SCH (09:00)
[2018-07-30] MEDS ORDERED: Non-Formulary Item 1 EACH (Amlodipine Besylate [Amlodipine Besylate] 5 MG) PO SCH (09:00)
[2018-07-30] MEDS: traMADol HCl 50 MG TAB PO PRN (09:58)
[2018-07-30] MEDS: Amlodipine 5 MG TAB PO SCH (09:59)
[2018-07-30] MEDS: Ferrous Sulfate 325 MG TAB PO SCH (10:00)
[2018-07-30] MEDS: Aspirin 325 mg Enteric Coated Tablet PO SCH (10:00)
[2018-07-30] MEDS: Famotidine 20 MG TAB PO SCH (10:00)
[2018-07-30] MEDS: Enoxaparin Sodium 40 MG/0.4 ML SYRINGE SC SCH (10:01)
[2018-07-30] MEDS: Brimonidine Tartrate 0.2% Ophth Soln 5 ml Bottle EA EYE SCH ×4 (10:24→21:24)
[2018-07-30] MEDS ORDERED: guaiFENesin 100 MG/5 ML UDCUP PO SCH (12:00)
[2018-07-30] MEDS: Diabetic Tussin 200 MG/10 ML UDCUP PO SCH ×2 (12:19→17:40)
[2018-07-30] MEDS: Carvedilol 6.25 MG TAB PO SCH (17:40)
--- NOTE | 2018-07-30 18:58 | PDOC.PN ---
- Subjective Encounter Start Date: 07/30/18 Encounter Start Time: 18:56 (late entry) -: non-verbal Subjective: seen & examined.family at bedside -: Left sided weakness persists,left facial droop -: difficulty swolling - Objective Resuscitation Status - Order Detail: 07/29/18 14:34 Resuscitation Status Routine Resuscitation Status: FULL: Full Resuscitation MAR Reviewed: Yes Vital Signs & Weight: Vital Signs (12 hours) Temp Pulse Pulse Pulse Resp BP BP 07/30/18 17:40 152/72 H 07/30/18 15:35 99.1 F 66 16 07/30/18 11:30 98 F 73 16 07/30/18 09:59 87 07/30/18 09:52 71 65 170/87 H 07/30/18 08:45 07/30/18 07:55 69 67 186/92 H 07/30/18 07:32 98.6 F 73 17 BP BP Pulse Ox 07/30/18 17:40 07/30/18 15:35 152/72 H 99 07/30/18 11:30 161/87 H 98 07/30/18 09:59 07/30/18 09:52 191/91 H 07/30/18 08:45 100 07/30/18 07:55 190/92 H 07/30/18 07:32 184/90 H 100 Weight Weight 164 lb 6.4 oz I&O: 07/29/18 07/30/18 07/31/18 06:59 06:59 06:59 Intake Total 150 640 Output Total 485 100 Balance -335 540 Result Diagrams: 07/30/18 05:18 07/30/18 05:18 Additional Labs: Accuchecks 07/30/18 07/30/18 07/30/18 17:05 10:41 06:02 POC Glucose 104 121 H 87 07/29/18 20:00 POC Glucose 88 Phys Exam - Physical Examination Constitutional: NAD HEENT: PERRLA, moist MMs, sclera anicteric, oral pharynx no lesions facial droop noted Neck: no nodes, no JVD, supple, full ROM Respiratory: no wheezing, no rales, no rhonchi Cardiovascular: RRR, no significant murmur Gastrointestinal: soft, non-tender, no distention, positive bowel sounds Musculoskeletal: no edema, pulses present left arm weakness.dysarthria,left facial droop Psychiatric: normal affect, A&O x 3 Skin: no rash Dx/Plan (1) Acute CVA (cerebrovascular accident) Code(s): I63.9 - CEREBRAL INFARCTION, UNSPECIFIED Status: Acute (2) Hypertension Code(s): I10 - ESSENTIAL (PRIMARY) HYPERTENSION Status: Chronic Qualifiers: Hypertension type: essential hypertension Qualified Code(s): I10 - Essential (primary) hypertension Comment: elevated at rest, drops when sitting up or standing, will decrease Carvedilol (3) Peripheral neuropathy Code(s): G62.9 - POLYNEUROPATHY, UNSPECIFIED Status: Chronic (4) DM type 2 (diabetes mellitus, type 2) Status: Chronic Qualifiers: 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 * . Review of Systems - Review of Systems Constitutional: weakness, malaise. negative: fever, chills, sweats, other ENT: negative: Ear Pain, Ear Discharge, Nose Pain, Nose Discharge, Nose Congestion, Mouth Pain, Mouth Swelling, Throat Pain, Throat Swelling, Other Respiratory: negative: Cough, Dry, Shortness of Breath, Hemoptysis, SOB with Excertion, Pleuritic Pain, Sputum, Wheezing Cardiovascular: negative: chest pain, palpitations, orthopnea, paroxysmal nocturnal dyspnea, edema, light headedness, other Gastrointestinal: negative: Nausea, Vomiting, Abdominal Pain, Diarrhea, Constipation, Melena, Hematochezia, Other Genitourinary: negative: Dysuria, Frequency, Incontinence, Hematuria, Retention , Other Musculoskeletal: negative: Neck Pain, Shoulder Pain, Arm Pain, Back Pain, Hand Pain, Leg Pain, Foot Pain, Other Neurological: Weakness, Incoordination, Change in Speech, Confusion - Medications/Allergies Allergies/Adverse Reactions: Allergies Allergy/AdvReac Type Severity Reaction Status Date / Time No Known Allergies Allergy Verified 07/29/18 18:38 Medications: Current Medications Acetaminophen (Tylenol Er (8hr Arthritis Pain)) 650 mg PO Q6H PRN PRN Reason: Pain Amlodipine Besylate (Norvasc) 5 mg PO DAILY [facility] Last Admin: 07/30/18 09:59 Dose: 5 mg Aspirin (Ecotrin) 325 mg PO DAILY [facility] Last Admin: 07/30/18 10:00 Dose: 325 mg Atorvastatin Calcium (Lipitor) 40 mg PO HS [facility] Brimonidine Tartrate (Alphagan 0.2% Ophth Soln) 1 drop EA EYE TID [facility] Last Admin: 07/30/18 15:57 Dose: 1 drop Carvedilol (Coreg) 12.5 mg PO BID-[facility] Last Admin: 07/30/18 17:40 Dose: 12.5 mg Dextrose/Water (Dextrose 50%) 25 gm SLOW IVP PRN PRN PRN Reason: Hypoglycemia Enoxaparin Sodium (Lovenox) 40 mg SC 0900 [facility] Last Admin: 07/30/18 10:01 Dose: 40 mg Famotidine (Pepcid) 40 mg PO DAILY [facility] Last Admin: 07/30/18 10:00 Dose: 40 mg Ferrous Sulfate (Feosol) 325 mg PO DAILY [facility] Last Admin: 07/30/18 10:00 Dose: 325 mg Glucagon (Glucagon) 1 mg IM PRN PRN PRN Reason: Hypoglycemia Guaifenesin (Organ-I Nr) 400 mg PO Q4H PRN PRN Reason: Cough Guaifenesin (Robitussin Sf) 200 mg PO Q6HR [facility] Last Admin: 07/30/18 17:40 Dose: 200 mg Dextrose/Water (D5w) 1,000 mls @ 0 mls/hr IV .Q0M PRN PRN Reason: Hypoglycemia Insulin Human Lispro (Humalog) 0 units SC .MILD SLIDING SCALE PRN PRN Reason: Mild Correctional Scale Latanoprost (Xalatan 0.005% Ophth Soln) 1 drop EA EYE HS [facility] Lidocaine/Prilocaine (Emla 2.5%) 0 gm TOP Q6H PRN PRN Reason: Pain Ondansetron HCl (Zofran Odt) 4 mg PO Q6H PRN PRN Reason: Nausea/Vomiting Sodium Chloride (Flush - Normal Saline) 10 ml IVF PRN PRN PRN Reason: Saline Flush Last Admin: 07/30/18 10:01 Dose: 10 ml Sodium Chloride (Ami-128 5% Oph Oint) 0 gm EA EYE HS [facility] Tramadol HCl (Ultram) 50 mg PO Q6H PRN PRN Reason: Pain Last Admin: 07/30/18 09:58 Dose: 50 mg
[2018-07-30] MEDS ORDERED: OPTH EA EYE SCH (21:00)
[2018-07-30] MEDS ORDERED: SODIUM CHLORIDE 5% EA EYE SCH (21:00)
[2018-07-30] MEDS: Atorvastatin Calcium 40 MG TAB PO SCH (21:07)
[2018-07-30] MEDS: Latanoprost 0.005% Ophth Soln 2.5 ml Bottle EA EYE SCH (21:19)
[2018-07-30] MEDS: SODIUM CHLORIDE 5% EA EYE SCH (21:21)
[2018-07-30] MEDS: OPTH EA EYE SCH (21:21)
[2018-07-31] MEDS: Diabetic Tussin 200 MG/10 ML UDCUP PO SCH ×5 (00:25→23:33)
[2018-07-31] MEDS: traMADol HCl 50 MG TAB PO PRN (04:42)
[2018-07-31] MEDS: Carvedilol 6.25 MG TAB PO SCH ×2 (08:39→18:10)
[2018-07-31] MEDS: Famotidine 20 MG TAB PO SCH (08:40)
[2018-07-31] MEDS: Ferrous Sulfate 325 MG TAB PO SCH (08:40)
[2018-07-31] MEDS: Aspirin 325 mg Enteric Coated Tablet PO SCH (08:40)
[2018-07-31] MEDS: Enoxaparin Sodium 40 MG/0.4 ML SYRINGE SC SCH (08:41)
[2018-07-31] MEDS: Amlodipine 5 MG TAB PO SCH (08:41)
[2018-07-31] MEDS: Brimonidine Tartrate 0.2% Ophth Soln 5 ml Bottle EA EYE SCH ×3 (08:42→20:03)
--- NOTE | 2018-07-31 15:48 | PDOC.PN ---
- Subjective Encounter Start Date: 07/31/18 Encounter Start Time: 15:46 Mr. Washington was seen today in follow-up of acute infarct. He does not have any complaints this afternoon. He continues to have left upper extremity weakness. - Objective Resuscitation Status - Order Detail: 07/29/18 14:34 Resuscitation Status Routine Resuscitation Status: FULL: Full Resuscitation MAR Reviewed: Yes Vital Signs & Weight: Vital Signs (12 hours) Temp Pulse Resp BP BP Pulse Ox 07/31/18 15:45 98.4 F 65 16 126/79 98 07/31/18 12:00 97.8 F 76 24 H 102/74 100 07/31/18 08:41 77 167/90 H 07/31/18 08:39 167/90 H 07/31/18 08:00 97 07/31/18 07:36 98.5 F 68 18 179/91 H 97 Weight Weight 164 lb 6.4 oz I&O: 07/30/18 07/31/18 08/01/18 06:59 06:59 07:59 Intake Total 150 640 360 Output Total 485 475 Balance -335 165 360 Result Diagrams: 07/30/18 05:18 07/30/18 05:18 Additional Labs: Accuchecks 07/31/18 07/31/18 07/30/18 10:46 04:49 20:48 POC Glucose 174 H 108 132 H 07/30/18 17:05 POC Glucose 104 Phys Exam - Physical Examination HEENT: PERRLA + left facial droop Respiratory: no wheezing, no rales, no rhonchi, clear to auscultation bilateral Cardiovascular: RRR, no significant murmur, no rub Gastrointestinal: soft, non-tender, no distention, positive bowel sounds Musculoskeletal: no edema + Left upper extremity weakness Dx/Plan (1) Acute CVA (cerebrovascular accident) Code(s): I63.9 - CEREBRAL INFARCTION, UNSPECIFIED Status: Acute (2) DM type 2 (diabetes mellitus, type 2) Status: Chronic 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: 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: with termite control technician use Diabetes mellitus complication detail: with nephropathy (3) Hyperlipemia Code(s): E78.5 - HYPERLIPIDEMIA, UNSPECIFIED Status: Chronic (4) Hypertension Code(s): I10 - ESSENTIAL (PRIMARY) HYPERTENSION Status: Chronic Qualifiers: Hypertension type: essential hypertension Qualified Code(s): I10 - Essential (primary) hypertension Comment: elevated at rest, drops when sitting up or standing, will decrease Carvedilol - Plan * Acute CVA- continue aspirin and lipitor * Continue PT/OT * HTN- blood pressure has been a bit labile- will continue Amlodipine, and monitor the trend, titrate medications as needed * DM- blood glucose is controlled * Awaiting usp placement.
[2018-07-31] MEDS: Atorvastatin Calcium 40 MG TAB PO SCH (20:02)
[2018-07-31] MEDS: Latanoprost 0.005% Ophth Soln 2.5 ml Bottle EA EYE SCH (20:03)
[2018-07-31] MEDS: OPTH EA EYE SCH (20:03)
[2018-07-31] MEDS: SODIUM CHLORIDE 5% EA EYE SCH (20:03)
[2018-08-01] MEDS: Diabetic Tussin 200 MG/10 ML UDCUP PO SCH ×3 (05:29→17:06)
[2018-08-01] MEDS: traMADol HCl 50 MG TAB PO PRN ×2 (06:02→21:53)
[2018-08-01] MEDS: Famotidine 20 MG TAB PO SCH (09:34)
[2018-08-01] MEDS: Amlodipine 5 MG TAB PO SCH (09:34)
[2018-08-01] MEDS: Enoxaparin Sodium 40 MG/0.4 ML SYRINGE SC SCH (09:34)
[2018-08-01] MEDS: Aspirin 325 mg Enteric Coated Tablet PO SCH (09:36)
[2018-08-01] MEDS: Ferrous Sulfate 325 MG TAB PO SCH (09:36)
[2018-08-01] MEDS: Carvedilol 6.25 MG TAB PO SCH ×2 (09:36→17:07)
[2018-08-01] MEDS: Brimonidine Tartrate 0.2% Ophth Soln 5 ml Bottle EA EYE SCH ×3 (09:37→21:54)
--- NOTE | 2018-08-01 16:58 | PDOC.PN ---
- Subjective Encounter Start Date: 08/01/18 Encounter Start Time: 15:00 Mr. Washington was seen today in follow-up of acute CVA. He does not have any new complaints. - Objective Resuscitation Status - Order Detail: 07/29/18 14:34 Resuscitation Status Routine Resuscitation Status: FULL: Full Resuscitation MAR Reviewed: Yes Vital Signs & Weight: Vital Signs (12 hours) Temp Pulse Resp BP BP Pulse Ox 08/01/18 15:50 98.2 F 71 16 129/74 94 L 08/01/18 12:00 98.2 F 66 16 141/75 H 96 08/01/18 09:36 157/85 H 08/01/18 09:34 77 157/85 H 08/01/18 08:00 97.9 F 69 20 145/88 H 99 Weight Weight 164 lb 6.4 oz I&O: 07/31/18 08/01/18 08/02/18 05:59 06:59 06:59 Intake Total 180 Output Total Balance 180 Result Diagrams: 07/30/18 05:18 07/30/18 05:18 Additional Labs: Accuchecks 08/01/18 08/01/18 08/01/18 16:36 11:01 05:34 POC Glucose 101 167 H 94 07/31/18 07/31/18 19:57 16:55 POC Glucose 184 H 125 H Phys Exam - Physical Examination HEENT: PERRLA Respiratory: no wheezing, no rales, no rhonchi, clear to auscultation bilateral Cardiovascular: RRR, no significant murmur, no rub Gastrointestinal: soft, non-tender, no distention, positive bowel sounds Musculoskeletal: no edema + left upper extremity weakness Dx/Plan (1) Acute CVA (cerebrovascular accident) Code(s): I63.9 - CEREBRAL INFARCTION, UNSPECIFIED Status: Resolved (2) DM type 2 (diabetes mellitus, type 2) Status: Chronic Qualifiers: 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 * HTN- blood pressure is trending down * Continue PT/OT * Awaiting Nursing Home placement
[2018-08-01] MEDS: Benzocaine (Dental) 20% 10 gm Tube TOP PRN (17:04)
[2018-08-01] MEDS ORDERED: Nicotine 14 MG PATCH TD SCH (21:30)
[2018-08-01] MEDS: Atorvastatin Calcium 40 MG TAB PO SCH (21:53)
[2018-08-01] MEDS: Latanoprost 0.005% Ophth Soln 2.5 ml Bottle EA EYE SCH (21:53)
[2018-08-01] MEDS: OPTH EA EYE SCH (22:03)
[2018-08-01] MEDS: SODIUM CHLORIDE 5% EA EYE SCH (22:03)
[2018-08-02] MEDS: Diabetic Tussin 200 MG/10 ML UDCUP PO SCH ×3 (03:54→13:01)
[2018-08-02] MEDS: traMADol HCl 50 MG TAB PO PRN (04:01)
[2018-08-02] MEDS: Enoxaparin Sodium 40 MG/0.4 ML SYRINGE SC SCH (08:23)
[2018-08-02] MEDS: Ferrous Sulfate 325 MG TAB PO SCH (08:24)
[2018-08-02] MEDS: Famotidine 20 MG TAB PO SCH (08:24)
[2018-08-02] MEDS: Carvedilol 6.25 MG TAB PO SCH (08:25)
[2018-08-02] MEDS: Amlodipine 5 MG TAB PO SCH (08:25)
[2018-08-02] MEDS: Aspirin 325 mg Enteric Coated Tablet PO SCH (08:25)
[2018-08-02] MEDS: Benzocaine (Dental) 20% 10 gm Tube TOP PRN (09:26)
[2018-08-02] MEDS: Brimonidine Tartrate 0.2% Ophth Soln 5 ml Bottle EA EYE SCH ×2 (09:26→15:47)
--- NOTE | 2018-08-02 14:05 | PDOC.PN ---
- Subjective Encounter Start Date: 08/02/18 Encounter Start Time: 14:03 Mr. Washington was seen today in follow-up of acute CVA. He does not have any new complaints. - Objective Resuscitation Status - Order Detail: 07/29/18 14:34 Resuscitation Status Routine Resuscitation Status: FULL: Full Resuscitation MAR Reviewed: Yes Vital Signs & Weight: Vital Signs (12 hours) Temp Pulse Resp BP BP Pulse Ox 08/02/18 11:41 97.4 F L 66 18 143/74 H 93 L 08/02/18 08:25 68 154/79 H 08/02/18 08:00 95 08/02/18 07:42 98.3 F 68 16 154/79 H 95 08/02/18 04:00 98 F 63 16 136/79 98 Weight Weight 164 lb 6.4 oz I&O: 08/01/18 08/02/18 08/03/18 06:59 06:59 06:59 Intake Total 660 240 Output Total 395 Balance 265 240 Result Diagrams: 07/30/18 05:18 07/30/18 05:18 Additional Labs: Accuchecks 08/02/18 08/01/18 08/01/18 05:36 20:27 16:36 POC Glucose 99 120 H 101 Phys Exam - Physical Examination HEENT: PERRLA Respiratory: no wheezing, no rales, no rhonchi, clear to auscultation bilateral Cardiovascular: RRR, no significant murmur, no rub Gastrointestinal: soft, non-tender, no distention, positive bowel sounds Musculoskeletal: no edema Left upper extremity weakness Dx/Plan (1) Acute CVA (cerebrovascular accident) Code(s): I63.9 - CEREBRAL INFARCTION, UNSPECIFIED Status: Resolved (2) DM type 2 (diabetes mellitus, type 2) Status: Chronic Qualifiers: 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
--- NOTE | 2018-08-02 14:34 | DIS ---
DATE OF ADMISSION: 07/29/2018 DATE OF DISCHARGE: 08/02/2018 PRIMARY CARE PHYSICIAN: Dr. Lizette Harrison. DISCHARGE DISPOSITION: Back to the [facility] with fdc. DISCHARGE DIAGNOSES: 1. Acute cerebrovascular accident and this in the right posterior putamen and right robb radiata. 2. Hypertension. 3. Dyslipidemia. 4. Diabetes mellitus. 5. Coronary artery disease. 6. Tobacco abuse. DISCHARGE MEDICATIONS: Include; 1. Aspirin, the dose was increased to 325 mg daily. 2. Metformin 500 mg twice daily. 3. Carvedilol 12.5 mg twice a day. 4. Lipitor 40 mg at bedtime. 5. Tramadol 50 mg p.r.n. 6. Losartan 100 mg daily. 7. Lidoderm patch. 8. Latanoprost 0.05% at bedtime. 9. Humulin R t.i.d. 10. Guaifenesin 400 mg q.4. 11. Iron sulfate 325 mg daily. 12. Famotidine 40 mg daily. 13. Calcium carbonate 500 mg p.r.n. 14. Alphagan 0.2% t.i.d. 15. Amlodipine 5 mg daily. 16. Tylenol p.r.n. PROCEDURES: Procedures done during the admission; the patient had a CT scan of the brain showing stable chronic ischemic change and MRI of the brain showing acute infarct of the right posterior putamen extending into the robb radiata. CODE STATUS: Full code. ALLERGIES: NO KNOWN DRUG ALLERGIES. HOSPITAL COURSE: Mr. Washington is a pleasant 68-year-old gentleman, who presented to the emergency room with weakness on the left side as well as a left facial droop. He was admitted and found to have an acute stroke. He was seen by Neurology and it was recommended for management of the hyperlipidemia as well as better blood pressure control. The patient had been residing in the [facility] Detention and he will be discharged back there, but with Physical Therapy in the skilled unit. Job ID: [id number]
[2018-08-02 16:01] VITALS: BP 144/82; TEMP 97.2
== END 2018-08-02 16:06 | DRG 65 ==
LOC: ERS 12:05 → ERHOLD 14:25 → 2SE 15:28 → OBSVTOIN 17:28
PROVIDERS: ADMIT Internal Medicine; ATTEND Internal Medicine
DX: I63.81 Other cerebral infarction due to occlusion or stenosis of small artery (principal); G81.94 Hemiplegia, unspecified affecting left nondominant side; R29.704 NIHSS score 4; R40.2412 Glasgow coma scale score 13-15, at arrival to emergency department; I10 Essential (primary) hypertension; E11.42 Type 2 diabetes mellitus with diabetic polyneuropathy; I25.10 Atherosclerotic heart disease of native coronary artery without angina pectoris; G47.33 Obstructive sleep apnea (adult) (pediatric); E78.5 Hyperlipidemia, unspecified; Z87.891 Personal history of nicotine dependence; Z79.84 Long term (current) use of oral hypoglycemic drugs; Z79.82 Long term (current) use of aspirin
CPT/HCPCS: 36415; 36416; 70450; 70551; 71045; 80048; 80053; 80061; 81003; 81015; 82140; 82550; 82553; 83605; 83690; 83880; 84443; 84484; 85025; 85610; 85730; 87040; 93005; J1650

== ENCOUNTER 2019-10-28 10:40 | Observation (INO) | payer MEDICARE, OTHER ==
[2019-10-28 11:55] LABS: #Basophils 0.1 thou/uL (0.0-0.2); #Eosinphils 0.1 thou/uL (0.0-0.7); #Monocytes 0.6 thou/uL (0.11-0.59); #Neutrophils 5.7 thou/uL (1.40-6.50); %Basophils 1.6 % (0.0-1.0); %Eosinophils 1.5 % (0.0-10.0); %Lymphocytes 31.1 % (21.0-51.0); %Monocytes 6.3 % (0.0-10.0); %Neutrophils 59.5 % (42.0-75.0); Hemoglobin 11.8 g/dL (14.0-18.0); Mean Corpuscular HGB CONC 32.6 g/dL (32.0-36.0); Mean Corpuscular Volume 98.3 fL (78.0-98.0); Platelet Count 280 thou/uL (130-400); RBC Distribution Width 12.3 % (11.5-14.5); White Blood Cell (WBC) Count 9.5 thou/uL (4.8-10.8)
[2019-10-28 12:09] LABS: ALT (SGPT) 20 U/L (8-55); AST (SGOT) 25 U/L (5-34); Albumin 3.5 g/dL (3.4-4.8); Alkaline Phosphatase 86 U/L (40-110); Anion Gap 11 mmol/L (10-20); BUN (Urea Nitrogen) 15 mg/dL (8.4-25.7); Bilirubin, Total 0.3 mg/dL (0.2-1.2); Calc. Creatinine Clearance 0 mL/min (70-130); Calcium 9.2 mg/dL (7.8-10.44); Carbon Dioxide 23 mmol/L (23-31); Chloride 107 mmol/L (98-107); Estimated GFR-MDRD 63; Globulin 3.4 g/dL (2.4-3.5); Glucose 198 mg/dL (80-115); Potassium 4.3 mmol/L (3.5-5.1); Protein, Total 6.9 g/dL (5.8-8.1); Sodium 137 mmol/L (136-145)
[2019-10-28 12:31] LABS: CKMB 1.5 ng/mL (0-6.6)
[2019-10-28 13:10] LABS: Bacteria/HPF None Seen HPF (None Seen); Bilirubin Negative (Negative); Blood, Urine Negative (Negative); Clarity Clear (Clear); Glucose, Urine (Dipstick) Normal (Negative); Leukocyte Negative Leu/uL (Negative); Nitrite Negative (Negative); Protein, Urine (Dipstick) 50 mg/dL (Neg-Trace); RBC/HPF 0-3 HPF (0-3); Squamous Epithelial 0-3 HPF (0-3); Urobilinogen Normal mg/dL (Less than 2); WBC/HPF 0-3 HPF (0-3)
--- NOTE | 2019-10-28 13:32 | CT ---
CT head noncontrast HISTORY: Fall. Injury. COMPARISON: 07/29/2018. FINDINGS: There is no evidence of acute intracranial hemorrhage or infarct. Diffuse cortical atrophy and chronic ischemic small vessel disease again demonstrated. Encephalomalacia from old areas of infarct at the right occipital lobe and the basal ganglia are similar in appearance to the prior stud y. There is no mass effect or shift of midline structures. Visualized paranasal sinuses remain well aera azra. Prominent calcification in the carotid siphons at the brain base. IMPRESSION : Chronic-type findings are stable. No acute injury demonstrated
[2019-10-28] MEDS ORDERED: Calcium Carbonate 500 MG ChewTAB PO PRN ×2 (14:55→15:05)
[2019-10-28] MEDS ORDERED: Senokot S 8.6-50 MG TAB PO PRN (14:55)
[2019-10-28] MEDS ORDERED: Acetaminophen 325 MG TAB PO PRN (14:55)
[2019-10-28] MEDS ORDERED: HumaLOG 300 UNITS/3 ML VIAL SC PRN ×2 (15:20)
[2019-10-28] MEDS ORDERED: Dextrose 5% in Water 1,000 ML IV PRN (15:20)
[2019-10-28] MEDS ORDERED: Dextrose 50% Abboject 50 ML SYRINGE SLOW IVP PRN (15:20)
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
[2019-10-28 16:48] VITALS: BMI 28.4
[2019-10-28] MEDS: Carvedilol 6.25 MG TAB PO SCH (18:06)
[2019-10-28] MEDS: Nicotine 14 MG PATCH TD SCH (18:06)
[2019-10-28 18:11] LABS: Troponin I 0.057 ng/mL (< 0.028)
[2019-10-28 18:30] LABS: Ferritin 412.99 ng/mL (22-322); Thyroid Stimulating Hormone 0.4036 uIU/mL (0.35-4.94)
--- NOTE | 2019-10-28 19:10 | RAD ---
PORTABLE UPRIGHT FRONTAL CHEST RADIOGRAPH: 10/28/19 COMPARISON: 07/29/18. HISTORY: Syncope. FINDINGS: Stable heart and mediastinal contours. No pneumothorax, pleural fluid, focal consolidation, or alveol ar edema. IMPRESSION: No acute findings. POS: [facility]
[2019-10-28] MEDS: Atorvastatin Calcium 40 MG TAB PO SCH (20:04)
[2019-10-28 20:41] LABS: Troponin I 0.061 ng/mL (< 0.028)
[2019-10-28] MEDS ORDERED: Milk Of Magnesia 30 ML UDCUP PO PRN (21:12)
[2019-10-28] MEDS ORDERED: Artificial Tear Sol 15 ML BOT EA EYE PRN (21:12)
[2019-10-28] MEDS: traMADol HCl 50 MG TAB PO PRN (22:02)
[2019-10-29 05:40] LABS: #Basophils 0.1 thou/uL (0.0-0.2); #Eosinphils 0.1 thou/uL (0.0-0.7); #Lymphocytes 5.3 thou/uL (1.20-3.40); #Monocytes 0.7 thou/uL (0.11-0.59); #Neutrophils 5.4 thou/uL (1.40-6.50); %Eosinophils 1.1 % (0.0-10.0); %Lymphocytes 45.7 % (21.0-51.0); %Monocytes 5.9 % (0.0-10.0); %Neutrophils 46.3 % (42.0-75.0); Hemoglobin 12.6 g/dL (14.0-18.0); Mean Corpuscular HGB CONC 33.5 g/dL (32.0-36.0); Mean Corpuscular Hemoglobin 32.6 pg (27.0-31.0); Mean Corpuscular Volume 97.4 fL (78.0-98.0); Mean Platelet Volume 8.5 fL (7.4-10.4); Platelet Count 291 thou/uL (130-400); RBC Distribution Width 12.3 % (11.5-14.5); Red Blood Cell (RBC) Count 3.85 mill/uL (4.70-6.10); White Blood Cell (WBC) Count 11.7 thou/uL (4.8-10.8)
[2019-10-29 06:13] LABS: Anion Gap 13 mmol/L (10-20); BUN (Urea Nitrogen) 11 mg/dL (8.4-25.7); Calc. Creatinine Clearance 86 mL/min (70-130); Calcium 9.7 mg/dL (7.8-10.44); Carbon Dioxide 20 mmol/L (23-31); Cardiac Risk 4.2 (Less than 4.5); Chloride 109 mmol/L (98-107); Cholesterol 105 mg/dl (< 200 Desired); Estimated GFR-MDRD Greater than 90; Glucose 95 mg/dL (80-115); HDL Cholesterol 25 mg/dL (>60 Neg Risk); LDL Cholesterol, Calculated 59 mg/dL; Potassium 4.1 mmol/L (3.5-5.1); Sodium 138 mmol/L (136-145); Triglycerides 105 mg/dL (Less than 150)
[2019-10-29] MEDS: Polyethylene Glycol 3350 17 GM Packet PO SCH (07:45)
[2019-10-29] MEDS: Losartan 25 MG TAB PO SCH (07:45)
[2019-10-29] MEDS: Tamsulosin HCl 0.4 MG CAP PO SCH (07:45)
[2019-10-29] MEDS: Loratadine 10 MG TAB PO SCH (07:45)
[2019-10-29] MEDS: Multivitamin W/ Minerals 1 TAB PO SCH (07:45)
[2019-10-29] MEDS: Carvedilol 6.25 MG TAB PO SCH ×2 (07:45→16:08)
[2019-10-29] MEDS: Amlodipine 5 MG TAB PO SCH (07:45)
[2019-10-29] MEDS: Famotidine 20 MG TAB PO SCH (07:45)
[2019-10-29] MEDS: Aspirin 325 mg Enteric Coated Tablet PO SCH (07:45)
[2019-10-29] MEDS: traMADol HCl 50 MG TAB PO PRN ×2 (12:49→22:20)
[2019-10-29] MEDS: Brimonidine Tartrate 0.2% Ophth Soln 5 ml Bottle EA EYE SCH ×3 (13:03→22:21)
[2019-10-29] MEDS: OPTH EA EYE SCH ×2 (13:03→22:22)
[2019-10-29] MEDS: SODIUM CHLORIDE 5% EA EYE SCH ×2 (13:03→22:22)
[2019-10-29] MEDS: Acetaminophen/Codeine 30-300mg Tablet PO PRN (16:16)
[2019-10-29 16:52] LABS: SARS-CoV-2 MS2 Positive; SARS-CoV-2 N Gene Negative; SARS-CoV-2 S Gene Negative; SARS-CoV-2 orf1ab Negative
[2019-10-29] MEDS: Nicotine 14 MG PATCH TD SCH (17:51)
[2019-10-29] MEDS ORDERED: Latanoprost 0.005% Ophth Soln 2.5 ml Bottle EA EYE SCH (21:00)
--- NOTE | 2019-10-29 21:28 | ULT ---
CAROTID ARTERIAL DOPPLER ULTRASOUND: 10/29/19 COMPARISON: None. HISTORY: Syncope. TECHNIQUE: Multiplanar butcher scale sonographic imaging of the arterial structures of the neck with color flow and spectral analysis. FINDINGS: Antegrade blood flow and normal arterial waveforms are documented within the carotid and vertebral sy stem bilaterally. There is partially calcified plaque within the distal right CCA and proximal right ICA. There is mild calcified plaque at the origin of the right ECA as well as within the mid and dis dajuan CCA. VESSEL PSV (cm/s) Right CCA 52 Right ICA 51 Right ECA 76 Left CCA 68 Left ICA 50 Left ECA 40 ICA/CCA ratio is 1.0 on the right and 0.7 on the left. IMPRESSION: No hemodynamically significant stenosis on the basis of sonographic velocity criteria. POS: [facility]
[2019-10-29] MEDS: Atorvastatin Calcium 40 MG TAB PO SCH (22:19)
--- NOTE | 2019-10-29 22:59 | PDOC.HOSPP ---
- Subjective Encounter Date: 10/29/19 Encounter Time: 09:00 Subjective: no overnight events .this morning feels well and requests to be discharged. pending covid rule out - Objective Vital Signs & Weight: Vital Signs (12 hours) Temp Pulse Resp BP BP Pulse Ox 10/29/19 21:33 98.7 F 62 16 149/72 H 99 10/29/19 18:15 62 139/89 10/29/19 16:15 98.5 F 62 19 182/96 H 96 10/29/19 12:45 98.6 F 66 18 166/88 H 98 Weight Weight 176 lb Result Diagrams: 10/29/19 05:27 10/29/19 05:27 Additional Labs: Accuchecks 10/29/19 10/29/19 10/29/19 21:40 16:26 12:17 POC Glucose 120 H 125 H 113 H 10/29/19 10/28/19 04:58 20:12 POC Glucose 100 143 H Hospitalist ROS - Review of Systems Constitutional: denies: fever, chills, sweats, weakness, malaise, other Respiratory: denies: cough, dry, shortness of breath, hemoptysis, SOB with excertion, pleuritic pain, sputum, wheezing, other Cardiovascular: denies: chest pain, palpitations, orthopnea, paroxysmal noc. dyspnea, edema, light headedness, other Gastrointestinal: denies: nausea, vomiting, abdominal pain, diarrhea, constipation, melena, hematochezia, other - Medication Medications: Active Medications Generic Name Dose Route Start Last Admin Trade Name Freq PRN Reason Stop Dose Admin Acetaminophen 650 mg 10/28/19 14:55 10/28/19 20:04 Tylenol PO 650 mg Q4H PRN Administration Headache/Fever/Mild Pain (1-3) Acetaminophen/Codeine Phosphate 1 tab 10/28/19 21:12 10/29/19 16:16 Tylenol #3 PO 1 tab Q6HR PRN Administration Severe Pain (7-10) Amlodipine Besylate 5 mg 10/29/19 09:00 10/29/19 07:45 Norvasc PO 5 mg DAILY STANLEY Administration Aspirin 325 mg 10/29/19 09:00 10/29/19 07:45 Ecotrin PO 325 mg DAILY STANLEY Administration Atorvastatin Calcium 40 mg 10/28/19 21:00 10/29/19 22:19 Lipitor PO 40 mg HS STANLEY Administration Brimonidine Tartrate 1 drop 10/29/19 09:00 10/29/19 22:21 Alphagan 0.2% Ophth Soln EA EYE 1 drop TID STANLEY Administration Carvedilol 12.5 mg 10/28/19 17:00 10/29/19 16:08 Coreg PO 12.5 mg BID-WM STANLEY Administration Famotidine 40 mg 10/29/19 09:00 10/29/19 07:45 Pepcid PO 40 mg DAILY STANLEY Administration Iron/Minerals/Multivitamins 1 tab 10/29/19 09:00 10/29/19 07:45 Theragran M PO 1 tab DAILY STANLEY Administration Latanoprost 1 drop 10/29/19 21:00 10/29/19 22:21 Xalatan 0.005% Ophth Soln EA EYE 1 drop HS STANLEY Administration Loratadine 10 mg 10/29/19 09:00 10/29/19 07:45 Claritin PO 10 mg DAILY STANLEY Administration Losartan Potassium 100 mg 10/29/19 09:00 10/29/19 07:45 Cozaar PO 100 mg DAILY STANLEY Administration Nicotine 14 mg 10/28/19 15:00 10/29/19 17:51 Nicoderm Patch TD 14 mg Q24HR STANLEY Administration Polyethylene Glycol 17 gm 10/29/19 09:00 10/29/19 07:45 Miralax PO 17 gm DAILY STANLEY Administration Sertraline HCl 25 mg 10/29/19 09:00 10/29/19 07:45 Zoloft PO 25 mg DAILY STANLEY Administration Sodium Chloride 10 ml 10/28/19 14:55 10/29/19 22:22 Flush - Normal Saline IVF 10 ml Q12HR PRN Administration Saline Flush Sodium Chloride 0 gm 10/29/19 09:00 10/29/19 22:22 Ami-128 5% Oph Oint EA EYE Not Given BID STANLEY Tamsulosin HCl 0.4 mg 10/29/19 09:00 10/29/19 07:45 Flomax PO 0.4 mg DAILY STANLEY Administration Tramadol HCl 50 mg 10/28/19 15:05 10/29/19 22:20 Ultram PO 50 mg Q6H PRN Administration Pain - Exam General Appearance: NAD, awake alert Heart: RRR, no murmur, no gallops Respiratory: CTAB, no wheezes, no rales, no ronchi Gastrointestinal: soft, non-tender, non-distended, normal bowel sounds Hosp A/P - Plan #mechanical fall -patient was reaching for chair, which moved away from patient, then he fell -telemetry benign so far #COVID pneumonia rule out -pending test result; has no symptoms or risk factors
[2019-10-30] MEDS: Polyethylene Glycol 3350 17 GM Packet PO SCH (09:28)
[2019-10-30] MEDS: Acetaminophen/Codeine 30-300mg Tablet PO PRN (09:29)
[2019-10-30] MEDS: Losartan 25 MG TAB PO SCH (09:30)
[2019-10-30] MEDS: Amlodipine 5 MG TAB PO SCH (09:30)
[2019-10-30] MEDS: Famotidine 20 MG TAB PO SCH (09:30)
[2019-10-30] MEDS: Carvedilol 6.25 MG TAB PO SCH (09:30)
[2019-10-30] MEDS: Multivitamin W/ Minerals 1 TAB PO SCH (09:30)
[2019-10-30] MEDS: Tamsulosin HCl 0.4 MG CAP PO SCH (09:30)
[2019-10-30] MEDS: Loratadine 10 MG TAB PO SCH (09:31)
[2019-10-30] MEDS: SODIUM CHLORIDE 5% EA EYE SCH (09:31)
[2019-10-30] MEDS: OPTH EA EYE SCH (09:31)
[2019-10-30] MEDS: Aspirin 325 mg Enteric Coated Tablet PO SCH (09:31)
[2019-10-30] MEDS: Brimonidine Tartrate 0.2% Ophth Soln 5 ml Bottle EA EYE SCH (09:32)
[2019-10-30 12:15] VITALS: BP 154/82; TEMP 98.5
[2019-10-30] MEDS ORDERED: Sodium Chloride 0.9% 1,000 ML IV SCH (12:45)
--- NOTE | 2019-10-31 03:29 | DIS ---
DATE OF ADMISSION: 10/28/2019 DATE OF DISCHARGE: 10/30/2019 HOSPITAL COURSE: Mr. Washington is a 69-year-old male and longterm resident with the past medical history of CVA with residual left-sided deficit, hypertension, type 2 diabetes, and nonischemic cardiomyopathy, who presented to the ED after a fall. The patient was attempting to grab onto his chair while walking, but missed the chair, likely due to his poor vision. Per the patient, he never lost consciousness; however, he remained down until he was found. He was diagnosed with a mechanical fall, likely related to his poor vision, deconditioning, and residual left-sided weakness. As part of his workup, orthostatics were negative. Telemetry showed no arrhythmias, and carotid Doppler did not show any significant stenosis. He was discharged back to his longterm with no complaints with the exception of his vision being poor without his glasses. PHYSICAL EXAMINATION: VITAL SIGNS: Blood pressure 154/82, temperature 98.5 Fahrenheit, pulse 96, respiratory rate 17, and oxygen saturation 96% on room air. GENERAL APPEARANCE: No apparent distress, lying comfortably in bed. Alert and oriented x3. HEENT: Normocephalic, atraumatic. CARDIAC: Regular rate and rhythm. No murmurs, gallops, or rubs. LUNGS: Clear to auscultation bilaterally. No wheezing, rales or rhonchi. ABDOMEN: Soft, nontender, nondistended. Normal bowel sounds. EXTREMITIES: Upper extremities; left upper extremity weakness, which is baseline. No swelling. Lower extremities; active and passive range of motion, 5/5 strength. MEDICATIONS: There was no change in his outpatient medications. Job ID: [id number]
== END 2019-10-30 14:09 ==
LOC: ERS 10:40 → 2NO 14:06 → 2SW 16:33 → 2SE 10-29 19:58
PROVIDERS: ADMIT Internal Medicine; ATTEND Internal Medicine
DX: R55 Syncope and collapse (principal); I69.334 Monoplegia of upper limb following cerebral infarction affecting left non-dominant side; I11.9 Hypertensive heart disease without heart failure; E11.9 Type 2 diabetes mellitus without complications; I42.8 Other cardiomyopathies; E78.5 Hyperlipidemia, unspecified; F17.210 Nicotine dependence, cigarettes, uncomplicated; N40.0 Benign prostatic hyperplasia without lower urinary tract symptoms; H40.9 Unspecified glaucoma; Z20.828 Contact with and (suspected) exposure to other viral communicable diseases; Z79.4 Long term (current) use of insulin; Z79.82 Long term (current) use of aspirin; Z79.899 Other long term (current) drug therapy; W05.0XXA Fall from non-moving wheelchair, initial encounter
CPT/HCPCS: 51701; 70450; 71045; 80048; 80061; 82553; 82728; 82962 ×3; 83615; 83735; 83880; 84484 ×2; 85025; 85379; 86140; 93005; 93306; 93880; 96360; 97139 ×2; 99285; G0378 ×4; U0003; 36415; 36416; 80053; 81003; 81015; 84443; 87635

== ENCOUNTER 2020-03-21 16:29 | Inpatient (IN) | payer MEDICARE, OTHER ==
[~2020-03-21 16:29] MED LIST: Iopamidol-370 76% 500 ML 1 ML ONE
[2020-03-21] MEDS ORDERED: Cefepime 2 GM VIAL ONE (19:13)
[2020-03-21] MEDS ORDERED: Vancomycin 1 GM/200 ML BAG ONE (20:17)
--- NOTE | 2020-03-21 21:54 | CT ---
CTA CHEST WITH CONTRAST: 03/21/20 Axial tomograms obtained following angio protocol. Multiplanar reconstructions and 3D postprocessing performed. INDICATIONS: Shortness of breath. Elevated D-dimer. FINDINGS: Pulmonary arteries show adequate enhancement. There is no evidence of pulmonary embolus. Thoracic aor ta shows no evidence of dissection or aneurysm. Nonspecific mediastinal and hilar adenopathy. Mild cardiomegaly and mild vascular congestion. Review of the lung garcia reveals a multinodular infiltrative process involving the right upper lobe and right lower lobe. Left lung appears clear. No significant effusion. The upper abdomen unremarkabl e. Osseous structures unremarkable. IMPRESSION: 1. No evidence of pulmonary embolus. 2. Reticulonodular infiltrative process involving right upper lobe and right lower lobe. The nod ular components measure up to 1.0 cm. Atypical infectious process should be considered. Mycobacteria should be excluded. POS: [facility]
[2020-03-21 22:43] LABS: Bacteria/HPF None Seen HPF (None Seen); Bilirubin Negative (Negative); Blood, Urine Negative (Negative); Clarity Clear (Clear); Glucose, Urine (Dipstick) Normal (Negative); Ketone, Urine Negative (Negative); Leukocyte Negative Leu/uL (Negative); Nitrite Negative (Negative); Protein, Urine (Dipstick) 200 mg/dL (Neg-Trace); RBC/HPF 0-3 HPF (0-3); Specific Gravity, Urine 1.015 (1.002-1.036); Squamous Epithelial None Seen HPF (0-3); Urobilinogen Normal mg/dL (Less than 2); WBC/HPF 0-3 HPF (0-3)
[2020-03-21] MEDS ORDERED: Guaifenesin DM 100-10/5 ML UDCUP PO PRN (23:39)
[2020-03-21] MEDS ORDERED: Ondansetron PF 4 MG/2 ML Vial IVP PRN (23:39)
[2020-03-21] MEDS ORDERED: Acetaminophen 650 MG Suppository PR PRN (23:39)
[2020-03-21] MEDS ORDERED: Ondansetron ODT 4 MG TAB PO PRN (23:39)
--- NOTE | 2020-03-21 23:53 | PDOC.HHP ---
Hospitalist HPI - History of Present Illness stroke r/o History of Present Illness: Case of an 70y/o male care home resident with pmhx of htn, hld, htn, dm and hx of previous strokes who was sent from [place] for evaluation of possible stroke. apparently patient was on his usual state of health until today when personal from care home [place] patient had R sided droop and slur speech. at the ED patient was evaluated and was diagnosed with multi focal pneumonia. CT findings showed concern for possible tb findings but for which treatment and precaution where initiated. stroke symptoms seemed to improved after receiving tx for pneumonia. head ct negative. hospitalist was called for further evalua tion and management. patient is a poor historian and did not answer most of my questions. he does denies any fever chills cough and any neurological symptom Hospitalist ROS - Review of Systems All other systems reviewed; all pertinent +/- noted in HPI/Subj - Exam General Appearance: NAD, awake alert Eye: PERRL, anicteric sclera ENT: normocephalic atraumatic, no oropharyngeal lesions Neck: supple, symmetric Heart: RRR, no murmur, no gallops Respiratory: CTAB, no wheezes, no rales Gastrointestinal: soft, non-tender, non-distended Extremities: no cyanosis, no clubbing, no edema Skin: normal turgor, no lesions, no rashes Neurological: cranial nerve grossly intact, normal sensation to touch Musculoskeletal: normal tone, normal strength, no muscle wasting Psychiatric: normal affect, normal behavior, A&O x 3 Hospitalist Results - Labs Lab results: Lactic Acid 1.2 mmol/L (0.5-2.2) 03/21/20 18:34 Urine Ketones Negative mg/dL (Negative) 03/21/20 22:25 Urine Blood Negative (Negative) 03/21/20 22:25 Urine Nitrite Negative (Negative) 03/21/20 22:25 Ur Leukocyte Esterase Negative Akosua/uL (Negative) 03/21/20 22:25 Urine RBC 0-3 HPF (0-3) 03/21/20 22:25 Urine WBC 0-3 HPF (0-3) 03/21/20 22:25 Ur Squamous Epith Cells None Seen HPF (0-3) 03/21/20 22:25 Urine Bacteria None Seen HPF (None Seen) 03/21/20 22:25 Hospitalist H&P A/P - Problem (1) Multifocal pneumonia Code(s): J18.9 - PNEUMONIA, UNSPECIFIED ORGANISM Status: Acute (2) TIA (transient ischemic attack) Code(s): G45.9 - TRANSIENT CEREBRAL ISCHEMIC ATTACK, UNSPECIFIED Status: Acute (3) Chronic kidney disease Code(s): N18.9 - CHRONIC KIDNEY DISEASE, UNSPECIFIED Status: Chronic (4) DM type 2 (diabetes mellitus, type 2) Status: Chronic Qualifiers: Diabetes mellitus usp insulin use: with ad terminal makeup operator use Diabetes mellitus complication detail: with nephropathy (5) History of CVA (cerebrovascular accident) Code(s): Z86.73 - PRSNL HX OF TIA (TIA), AND CEREB INFRC W/O RESID DEFICITS Status: Chronic (6) Hyperlipemia Code(s): E78.5 - HYPERLIPIDEMIA, UNSPECIFIED Status: Chronic (7) Hypertension Code(s): I10 - ESSENTIAL (PRIMARY) HYPERTENSION Status: Chronic Qualifiers: Hypertension type: essential hypertension Qualified Code(s): I10 - Essential (primary) hypertension - Plan Plan: Case of an 70y/o male with the stated pmhx who present with multifocal pneumonia and possible tia/cva multifocal pneumonia - ct consistent with multifocal pneumonia - f/u blood cultures - concern for TB on chest ct, stated on cefepim levaquin and vanc - airborne precaution - o2 supplementation - igra + acid fast sent - id consulted tia / cva - out of [facility], does not meet criteria - ct showed old infarcts - due to possible tb evaluation of stroke will probably be delayed - cta head/neck - carotid doppler - 2decho - mri head - neurology consult - started on asa+ statin prophylactically - permissive hypertension - avoid hypotonic fluids - pt / ot / speech eval DM -ss+ acc
[2020-03-22 01:34] VITALS: BMI 29.4
[2020-03-22] MEDS ORDERED: Dextrose 5% in Water 1,000 ML IV PRN (03:38)
[2020-03-22] MEDS ORDERED: Dextrose 50% Abboject 50 ML SYRINGE SLOW IVP PRN (03:38)
[2020-03-22] MEDS ORDERED: HumaLOG 300 UNITS/3 ML VIAL SC PRN (03:38)
[2020-03-22 05:22] LABS: Hemoglobin A1c 5.5 % (4.0-6.0)
[2020-03-22 05:41] LABS: ALT (SGPT) 13 U/L (8-55); AST (SGOT) 19 U/L (5-34); Albumin 2.3 g/dL (3.4-4.8); Alkaline Phosphatase 96 U/L (40-110); Anion Gap 8 mmol/L (10-20); BUN (Urea Nitrogen) 13 mg/dL (8.4-25.7); Bilirubin, Total 0.2 mg/dL (0.2-1.2); Calc. Creatinine Clearance 68 mL/min (70-130); Calcium 8.6 mg/dL (7.8-10.44); Carbon Dioxide 21 mmol/L (23-31); Cardiac Risk 4.7 (Less than 4.5); Chloride 114 mmol/L (98-107); Cholesterol 127 mg/dl (< 200 Desired); Estimated GFR-MDRD 74; Globulin 3.4 g/dL (2.4-3.5); Glucose 107 mg/dL (83-110); HDL Cholesterol 27 mg/dL (>60 Neg Risk); LDL Cholesterol, Calculated 82 mg/dL; Potassium 3.4 mmol/L (3.5-5.1); Protein, Total 5.7 g/dL (5.8-8.1); Sodium 140 mmol/L (136-145); Triglycerides 89 mg/dL (Less than 150)
[2020-03-22] MEDS: Sodium Chloride 0.9% 1,000 ML IV SCH ×2 (05:46→15:45)
[2020-03-22 06:31] LABS: Band 5 % (5-11); Eosinophils 1 % (0-10); Hemoglobin 11.4 g/dL (14.0-18.0); Lymphocytes 25 % (21-51); MDiff Complete? YES; Mean Corpuscular HGB CONC 32.1 g/dL (32.0-36.0); Mean Corpuscular Hemoglobin 31.1 pg (27.0-31.0); Mean Corpuscular Volume 97.1 fL (78.0-98.0); Mean Platelet Volume 8.5 fL (7.4-10.4); Monocytes 16 % (0-10); Neutrophil 53 % (42-75); Platelet Count 289 thou/uL (130-400); RBC Distribution Width 12.6 % (11.5-14.5); Red Blood Cell (RBC) Count 3.65 mill/uL (4.70-6.10); White Blood Cell (WBC) Count 9.8 thou/uL (4.8-10.8)
[2020-03-22] MEDS ORDERED: Vancomycin 1 GM in Premix Bag 1 BAG IVPB SCH (09:00)
[2020-03-22] MEDS ORDERED: Enoxaparin Sodium 40 MG/0.4 ML SYRINGE SC SCH (09:00)
[2020-03-22] MEDS ORDERED: Cefepime 2 GM in Sodium Chloride 0.9% 100 ML IVPB SCH (09:00)
[2020-03-22] MEDS: Aspirin 325 mg Enteric Coated Tablet PO SCH (09:05)
[2020-03-22] MEDS: Famotidine 20 MG TAB PO SCH (09:05)
[2020-03-22] MEDS: Enoxaparin Sodium 40 MG/0.4 ML SYRINGE SC SCH (09:05)
[2020-03-22 09:49] LABS: Legionella Urinary Ag Negative (Negative)
--- NOTE | 2020-03-22 09:57 | PDOC.HOSPP ---
- Subjective Encounter Date: 03/22/20 Encounter Time: 09:55 Subjective: This patient is a 70-year-old who is a senior care resident who apparently was sent in because of change in his baseline. Reportedly the senior care staff noted that he had a facial droop prompting transfer to the hospital for stroke evaluation. He does have a history of prior stroke. CT of the chest obtained on admission had an incidental finding of a possible tuberculosis. Patient reported to me that he was treated for tuberculosis in 1972 and has not had any further recurrences since then. However he is a resident of a senior care and this might as well be possible. TB QuantiFERON gold test is pending. I am told the ID services were consulted as well. We will await their recommendations. Initially was felt that he had pneumonia but I am not really seeing any evidence of pneumonia both by imaging and on clinical exam. CT of the head did not show any acute finding. He is nonfocal on exam. - Objective Vital Signs & Weight: Vital Signs (12 hours) Temp Pulse Resp BP Pulse Ox 03/22/20 04:00 98.5 F 77 18 162/74 H 97 03/22/20 00:36 97.8 F 75 22 H 179/84 H 96 Weight Weight 182 lb 6.4 oz Result Diagrams: 03/22/20 04:58 03/22/20 04:58 Additional Labs: Accuchecks 03/22/20 05:52 POC Glucose 95 Radiology Reviewed by me: Yes EKG Reviewed by me: Yes Hospitalist ROS - Review of Systems Constitutional: denies: fever, chills, sweats, weakness, malaise, other Respiratory: reports: cough, dry Gastrointestinal: reports: nausea - Medication Medications: Active Medications Generic Name Dose Route Start Last Admin Trade Name Freq PRN Reason Stop Dose Admin Aspirin 325 mg 03/22/20 09:00 03/22/20 09:05 Aspirin 325 Mg Enteric Coated Tablet PO 325 mg DAILY STANLEY Administration Enoxaparin Sodium 40 mg 03/22/20 09:00 03/22/20 09:05 Enoxaparin Sodium 40 Mg/0.4 Ml Syringe SC 40 mg 0900 STANLEY Administration Famotidine 20 mg 03/22/20 09:00 03/22/20 09:05 Famotidine 20 Mg Tab PO 20 mg DAILY STANLEY Administration Cefepime HCl 2 gm/ Sodium 100 mls @ 200 mls/hr 03/22/20 09:00 03/22/20 09:05 Chloride IVPB 100 mls Q12HR STANLEY Administration Sodium Chloride 1,000 mls @ 70 mls/hr 03/21/20 23:45 03/22/20 05:46 Normal Saline 0.9% IV 1,000 mls .[id number] STANLEY Administration - Exam Eye: PERRL ENT: normocephalic atraumatic, moist mucosa Neck: supple, symmetric, no JVD Heart: RRR, normal peripheral pulses, murmur present, II/IV Respiratory: CTAB, no wheezes, no rales, no tachypnea Gastrointestinal: soft, non-tender, non-distended, normal bowel sounds, no guarding Extremities: no cyanosis, no edema, clubbing Neurological: negative: cranial nerve grossly intact, normal sensation to touch, no weakness, no focal deficits, no new deficit, facial droop, hemiplegia, speech deficit, vision deficit Musculoskeletal: normal strength Psychiatric: normal affect, normal behavior, oriented to person, oriented to place Hosp A/P (1) Multifocal pneumonia Code(s): J18.9 - PNEUMONIA, UNSPECIFIED ORGANISM Status: Acute Plan: Pneumonia is suspected based on the CT findings. However he has not really had any symptoms of fever, cough, shortness of breath and his white count was normal. I would like to obtain a procalcitonin level to further evaluate this. He is on broad-spectrum antibiotic for suspected senior care acquired pneumonia. Will defer to ID services about making further recommendations. (2) TIA (transient ischemic attack) Code(s): G45.9 - TRANSIENT CEREBRAL ISCHEMIC ATTACK, UNSPECIFIED Status: Acute Plan: This seems to have resolved. (3) Altered mental status Code(s): R41.82 - ALTERED MENTAL STATUS, UNSPECIFIED Status: Acute Qualifiers: Altered mental status type: disorientation Qualified Code(s): R41.0 - Disorientation, unspecified (4) Hypokalemia Code(s): E87.6 - HYPOKALEMIA Status: Acute Plan: This will be repleted. 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 Symptoms appears to have resolved at the time of arrival in the hospital. CT of the head was negative without any acute finding. CTA of the head and neck to be obtained. This will likely be delayed pending TB evaluations. This likely was a TIA that has completely resolved. 2. Concern for pulmonary tuberculosis. 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 He is a senior care resident and I agree with testing for pulmonary TB. QuantiFERON gold test is pending. ID services has been consulted. We will await their further recommendations. 3. Suspected pneumonia. Chest x-ray appears to be clean and so is a CT of the chest. He had no fever and his white count was normal. He denied any cough to me. He does have some incidental finding concerning for pulmonary tuberculosis. He was started on empiric IV antibiotics and we will continue this for now. He is being treated as senior care acquired pneumonia with broad-spectrum IV antibiotics. Will defer to ID services about further recommendations. 4. Diabetes. This is by history but it appears that his hemoglobin A1c was 5 .5. 6. Hypertension. We will resume his home medicines and optimize as needed.
[2020-03-22 13:00] LABS: SARS-CoV-2 MS2 Positive; SARS-CoV-2 N Gene Negative; SARS-CoV-2 S Gene Negative; SARS-CoV-2 by NAA Not Detected (NotDetected); SARS-CoV-2 orf1ab Negative
[2020-03-22] MEDS ORDERED: Vancomycin 1.5 GRAM/300 ML BAG 1.5 GM in Premix Bag 1 BAG IVPB SCH (13:00)
--- NOTE | 2020-03-22 13:11 | CON ---
NEUROLOGY CONSULTATION DATE OF CONSULTATION: 03/22/2020 REASON FOR CONSULTATION: Rule out stroke. HISTORY OF PRESENT ILLNESS: Mr. Washington is a 70-[facility]-old, [facility] with medical history significant for hypertension, hyperlipidemia, diabetes mellitus, and history of prior stroke, transferred from [facility] because of possible stroke. Per patient, he was in his usual health until yesterday when the [facility] staff noticed right facial droop with slurred speech. He was evaluated. He was brought to the emergency room, where the head CT was done, which was negative for acute intracranial pathology. Chest x-ray was done, which showed multifocal pneumonia and he was admitted for further evaluation. The patient is a poor historian, so history is obtained from review of the medical records. REVIEW OF SYSTEMS: Unable to obtain secondary to the patient's mental condition. MEDICAL HISTORY: Hypertension, hyperlipidemia, diabetes mellitus, history of prior strokes. PAST SURGICAL HISTORY: Not significant. FAMILY HISTORY: No significant family history. SOCIAL HISTORY: The patient is a [facility] resident. Denies alcohol or illegal drug use. ALLERGIES: NKDA Vital Signs & Weight: Vital Signs (12 hours) Temp Pulse Resp BP Pulse Ox 03/22/20 04:00 98.5 F 77 18 162/74 H 97 03/22/20 00:36 97.8 F 75 22 H 179/84 H 96 Weight Weight 182 lb 6.4 oz Additional Labs: Accuchecks 03/22/20 05:52 POC Glucose 95 Active Medications Generic Name Dose Route Start Last Admin Trade Name Freq PRN Reason Stop Dose Admin Aspirin 325 mg 03/22/20 09:00 03/22/20 09:05 Aspirin 325 Mg Enteric Coated Tablet PO 325 mg DAILY STANLEY Administration Enoxaparin Sodium 40 mg 03/22/20 09:00 03/22/20 09:05 Enoxaparin Sodium 40 Mg/0.4 Ml Syringe SC 40 mg 0900 STANLEY Administration Famotidine 20 mg 03/22/20 09:00 03/22/20 09:05 Famotidine 20 Mg Tab PO 20 mg DAILY STANLEY Administration Cefepime HCl 2 gm/ Sodium 100 mls @ 200 mls/hr 03/22/20 09:00 03/22/20 09:05 Chloride IVPB 100 mls Q12HR STANLEY Administration Sodium Chloride 1,000 mls @ 70 mls/hr 03/21/20 23:45 03/22/20 05:46 Normal Saline 0.9% IV 1,000 mls .[id number] STANLEY Administration PHYSICAL EXAMINATION: General Appearance: NAD, awake alert Eye: PERRL, anicteric sclera ENT: normocephalic atraumatic, no oropharyngeal lesions Neck: supple, symmetric Heart: RRR, no murmur, no gallops Respiratory: CTAB, no wheezes, no rales Gastrointestinal: soft, non-tender, non-distended Extremities: no cyanosis, no clubbing, no edema Skin: normal turgor, no lesions, no rashes Neurological: Mental status, the patient is alert and oriented to person, place, and time. Speech is clear. Motor, muscle tone and bulk are normal. Moving all 4 extremities except left upper extremity due to pain. Per the patient, he had fracture of the left shoulder. Sensory intact. Cerebellar, finger-nose testing intact on the right, left unable to perform secondary to pain in the left upper extremity. Gait deferred due to the patient's safety reason. DATA REVIEWED: I reviewed the labs, which were essentially unremarkable. Lab results: Lactic Acid 1.2 mmol/L (0.5-2.2) 03/21/20 18:34 Urine Ketones Negative mg/dL (Negative) 03/21/20 22:25 Urine Blood Negative (Negative) 03/21/20 22:25 Urine Nitrite Negative (Negative) 03/21/20 22:25 Ur Leukocyte Esterase Negative Akosua/uL (Negative) 03/21/20 22:25 Urine RBC 0-3 HPF (0-3) 03/21/20 22:25 Urine WBC 0-3 HPF (0-3) 03/21/20 22:25 Ur Squamous Epith Cells None Seen HPF (0-3) 03/21/20 22:25 Urine Bacteria None Seen HPF (None Seen) 03/21/20 22:25 Radiology Reviewed by me: Yes EKG Reviewed by me: Yes ASSESSMENT AND PLAN: (1) TIA (transient ischemic attack) Code(s): G45.9 - TRANSIENT CEREBRAL ISCHEMIC ATTACK, UNSPECIFIED Status: Acute (2) Multifocal pneumonia Code(s): J18.9 - PNEUMONIA, UNSPECIFIED ORGANISM Status: Acute (3) Chronic kidney disease Code(s): N18.9 - CHRONIC KIDNEY DISEASE, UNSPECIFIED Status: Chronic (4) DM type 2 (diabetes mellitus, type 2) Status: Chronic Qualifiers: Diabetes mellitus spine supervisor insulin use: with spine supervisor use Diabetes mellitus complication detail: with nephropathy (5) History of CVA (cerebrovascular accident) Code(s): Z86.73 - PRSNL HX OF TIA (TIA), AND CEREB INFRC W/O RESID DEFICITS Status: Chronic (6) Hyperlipemia Code(s): E78.5 - HYPERLIPIDEMIA, UNSPECIFIED Status: Chronic (7) Hypertension Code(s): I10 - ESSENTIAL (PRIMARY) HYPERTENSION Status: Chronic Qualifiers: Hypertension type: essential hypertension Qualified Code(s): I10 - Essential (primary) hypertension Mr. Calixto Washington is a 70-year-old male with history significant for prior CVA, hypertension, hyperlipidemia, diabetes mellitus, and chronic kidney disease, presented with multifocal pneumonia and episode of slurred speech with right facial droop. Neurology consulted to rule out stroke. Consider MRI of the brain to rule out acute intracranial process, 2D echo to evaluate for left ventricular ejection fraction, carotid Dopplers to rule out hemodynamically significant stenosis. Continue telemetry. Consider ID input regarding concern for pulmonary tuberculosis and pneumonia. Start aspirin and high-intensity statin for secondary stroke prevention. Check hemoglobin A1c, fasting lipid panel, and TSH. Permissive control of blood pressure at this time. Strict control of blood glucose. Continue home medications. Continue medical management per primary team and ID. PT/OT/speech. DVT prophylaxis. We will continue to follow. Thank you for the consult. Job ID: [id number] MTDD
[2020-03-22] MEDS ORDERED: Calcium Carbonate 500 MG ChewTAB PO PRN (13:19)
[2020-03-22] MEDS ORDERED: Milk Of Magnesia 30 ML UDCUP PO PRN (13:19)
[2020-03-22] MEDS ORDERED: Polyvinyl Alcohol 1.4%/Povidone 0.6% Opth Drops EA EYE PRN (13:19)
[2020-03-22] MEDS ORDERED: Magnevist 469MG/ML 20 ML VIAL ONE (14:55)
[2020-03-22] MEDS: Brimonidine Tartrate 0.2% Ophth Soln 5 ml Bottle EA EYE SCH ×2 (15:14→22:27)
[2020-03-22] MEDS: Gabapentin 300 MG CAP PO SCH ×2 (15:15→22:26)
--- NOTE | 2020-03-22 16:39 | MRI ---
Exam: Brain MRI with and without contrast HISTORY: Possible stroke. 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 Thickening o f the pituitary stalk. COMPARISON: Brain MRI 09/14/2008, 07/29/2018 FINDINGS: Limited evaluation due to motion degradation on multiple sequences. Additionally, the patient refused to complete the entire exam. Hemorrhage: No parenchymal hemorrhage or extra-axial hematoma Calvarium: Appropriate T1 marrow signal intensity Midline brain parenchyma: Unremarkable Cerebrum:Age-appropriate atrophy. Encephalomalacia and gliosis involving the right occipital lobe. Ad ditional areas of gliosis are noted in the right periventricular white matter. Confluent T2 and FLAIR white matter hyperintensities due to chronic small vessel ischemic change. Ventricles: No evidence of hydrocephalus. Sinuses and mastoid air cells: Mild paranasal sinus mucosal thickening. Diffusion: Central arterial flow is maintained. Absent restricted diffusion. Postcontrast images: No pathologic enhancement of the brain parenchyma. Pituitary stalk: There does appear to be stable thickening of the superior aspect of the pituitary st alk. The degree of prominence is unchanged. The mid to distal portion of the stalk is normal in caliber. There does appear to be prominence of the left and right ophthalmic vein on the previous MRI suggesti ng a long-standing process. Obvious thrombosis of the cavernous sinuses and obvious cavernous carotid fistula cannot be assessed on this examination. IMPRESSION: 1. Absent restricted diffusion. No acute infarct 2. Findings suggesting long-standing prominence of the proximal pituitary stalk. 3. 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 Transcribed Date/Time: 03/22/2020 7:55 PM
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
[2020-03-22 18:56] LABS: SARS-CoV-2 IgG Ab Non-Reactive (NonReactive); SARS-CoV-2 IgG Index 0.02 S/CO (< 1.40)
[2020-03-22] MEDS: busPIRone HCl 10 MG TAB PO SCH (22:26)
[2020-03-22] MEDS: Atorvastatin Calcium 40 MG TAB PO SCH (22:26)
[2020-03-22] MEDS: Latanoprost 0.005% Ophth Soln 2.5 ml Bottle EA EYE SCH (22:27)
[2020-03-23 05:16] LABS: #Basophils 0.1 thou/uL (0.0-0.2); #Eosinphils 0.3 thou/uL (0.0-0.7); #Lymphocytes 3.2 thou/uL (1.20-3.40); #Monocytes 1.1 thou/uL (0.11-0.59); #Neutrophils 5.1 thou/uL (1.40-6.50); %Basophils 1.1 % (0.0-1.0); %Eosinophils 2.6 % (0.0-10.0); %Lymphocytes 33.2 % (21.0-51.0); %Monocytes 11.2 % (0.0-10.0); %Neutrophils 51.9 % (42.0-75.0); Mean Corpuscular HGB CONC 34.3 g/dL (32.0-36.0); Mean Corpuscular Hemoglobin 33.5 pg (27.0-31.0); Mean Corpuscular Volume 97.5 fL (78.0-98.0); Mean Platelet Volume 8.2 fL (7.4-10.4); Platelet Count 266 thou/uL (130-400); RBC Distribution Width 12.5 % (11.5-14.5); Red Blood Cell (RBC) Count 3.58 mill/uL (4.70-6.10); White Blood Cell (WBC) Count 9.8 thou/uL (4.8-10.8)
[2020-03-23 05:45] LABS: ALT (SGPT) 14 U/L (8-55); AST (SGOT) 22 U/L (5-34); Albumin 2.3 g/dL (3.4-4.8); Alkaline Phosphatase 94 U/L (40-110); Anion Gap 10 mmol/L (10-20); BUN (Urea Nitrogen) 13 mg/dL (8.4-25.7); Bilirubin, Total 0.3 mg/dL (0.2-1.2); Calc. Creatinine Clearance 67 mL/min (70-130); Calcium 8.8 mg/dL (7.8-10.44); Carbon Dioxide 17 mmol/L (23-31); Chloride 112 mmol/L (98-107); Estimated GFR-MDRD 74; Globulin 3.5 g/dL (2.4-3.5); Glucose 104 mg/dL (83-110); Magnesium 1.8 mg/dL (1.6-2.6); Potassium 3.4 mmol/L (3.5-5.1); Protein, Total 5.8 g/dL (5.8-8.1); Sodium 136 mmol/L (136-145)
[2020-03-23] MEDS: Sodium Chloride 0.9% 1,000 ML IV SCH ×2 (06:07→21:52)
[2020-03-23] MEDS: Brimonidine Tartrate 0.2% Ophth Soln 5 ml Bottle EA EYE SCH ×3 (10:25→21:53)
[2020-03-23] MEDS: DULoxetine 30 MG CAP PO SCH (10:26)
[2020-03-23] MEDS: Famotidine 20 MG TAB PO SCH (10:26)
[2020-03-23] MEDS: Aspirin 325 mg Enteric Coated Tablet PO SCH (10:26)
[2020-03-23] MEDS: Enoxaparin Sodium 40 MG/0.4 ML SYRINGE SC SCH (10:26)
[2020-03-23] MEDS: Amlodipine 5 MG TAB PO SCH (10:27)
[2020-03-23] MEDS: busPIRone HCl 10 MG TAB PO SCH ×2 (10:27→21:52)
[2020-03-23] MEDS: Gabapentin 300 MG CAP PO SCH ×3 (10:27→21:53)
[2020-03-23] MEDS: Losartan 25 MG TAB PO SCH (10:27)
[2020-03-23] MEDS: Multivitamin W/ Minerals 1 TAB PO SCH (10:28)
[2020-03-23] MEDS: Tamsulosin HCl 0.4 MG CAP PO SCH (10:28)
--- NOTE | 2020-03-23 11:46 | PDOC.HOSPP ---
- Subjective Encounter Date: 03/23/20 Encounter Time: 11:43 Subjective: Patient was seen and evaluated this morning. He says that he is doing really well. He is asking when he can be discharged. He is being treated for pneumonia suspected either bacterial versus Covid. There was also some qu estion of pulmonary tuberculosis. We will continue current management plan. He has been evaluated by ID services. - Objective Vital Signs & Weight: Vital Signs (12 hours) Temp Pulse Resp BP BP Pulse Ox 03/23/20 08:00 98.1 F 78 16 156/74 H 98 03/23/20 04:35 98.1 F 74 18 186/91 H 98 Weight Admit Weight 182 lb 6.4 oz Weight 182 lb 6.4 oz I&O: 03/22/20 03/23/20 03/24/20 06:59 06:59 06:59 Intake Total 1060 240 Balance 1060 240 Result Diagrams: 03/23/20 04:48 03/23/20 04:48 Hospitalist ROS - Review of Systems Constitutional: reports: weakness, malaise Respiratory: reports: cough, dry, shortness of breath, SOB with excertion Gastrointestinal: reports: nausea - Medication Medications: Active Medications Generic Name Dose Route Start Last Admin Trade Name Freq PRN Reason Stop Dose Admin Amlodipine Besylate 5 mg 03/23/20 09:00 03/23/20 10:27 Amlodipine 5 Mg Tab PO 5 mg DAILY STANLEY Administration Aspirin 325 mg 03/22/20 09:00 03/23/20 10:26 Aspirin 325 Mg Enteric Coated Tablet PO 325 mg DAILY STANLEY Administration Atorvastatin Calcium 40 mg 03/22/20 21:00 03/22/20 22:26 Atorvastatin Calcium 40 Mg Tab PO 40 mg HS STANLEY Administration Brimonidine Tartrate 1 drop 03/22/20 15:00 03/23/20 10:25 Brimonidine Tartrate 0.2% Ophth Soln 5 Ml Bottle EA EYE 1 drop TID STANLEY Administration Buspirone HCl 10 mg 03/22/20 21:00 03/23/20 10:27 Buspirone Hcl 10 Mg Tab PO 10 mg BID STANLEY Administration Duloxetine HCl 30 mg 03/23/20 09:00 03/23/20 10:26 Duloxetine 30 Mg Cap PO 30 mg QAM STANLEY Administration Enoxaparin Sodium 40 mg 03/22/20 09:00 03/23/20 10:26 Enoxaparin Sodium 40 Mg/0.4 Ml Syringe SC 40 mg 0900 STANLEY Administration Famotidine 20 mg 03/22/20 09:00 03/23/20 10:26 Famotidine 20 Mg Tab PO 20 mg DAILY STANLEY Administration Gabapentin 300 mg 03/22/20 15:00 03/23/20 10:27 Gabapentin 300 Mg Cap PO 300 mg TID STANLEY Administration Levofloxacin 750 mg/ Device 150 mls @ 100 mls/hr 03/22/20 20:00 03/22/20 22:26 IVPB 150 mls Q24HR STANLEY Administration Sodium Chloride 1,000 mls @ 70 mls/hr 03/21/20 23:45 03/23/20 06:07 Normal Saline 0.9% IV 1,000 mls .[id number] STANLEY Administration Insulin Human Lispro 0 units 03/22/20 03:38 03/22/20 11:37 Humalog 300 Units/3 Ml Vial SC 2 unit .MILD SLIDING SCALE PRN Administration Mild Correctional Scale Iron/Minerals/Multivitamins 1 tab 03/23/20 09:00 03/23/20 10:28 Multivitamin W/ Minerals 1 Tab PO 1 tab DAILY STANLEY Administration Latanoprost 1 drop 03/22/20 21:00 03/22/20 22:27 Latanoprost 0.005% Ophth Soln 2.5 Ml Bottle EA EYE 1 drop HS STANLEY Administration Losartan Potassium 100 mg 03/23/20 09:00 03/23/20 10:27 Losartan 25 Mg Tab PO 100 mg DAILY STANLEY Administration Sodium Chloride 10 ml 03/21/20 23:39 03/23/20 10:26 Flush - Normal Saline 10 Ml Syringe IVF 10 ml PRN PRN Administration Saline Flush Tamsulosin HCl 0.4 mg 03/23/20 09:00 03/23/20 10:28 Tamsulosin Hcl 0.4 Mg Cap PO 0.4 mg DAILY STANLEY Administration - Exam General Appearance: NAD, awake alert Eye: PERRL ENT: normocephalic atraumatic, no oropharyngeal lesions, moist mucosa Neck: supple, symmetric, no JVD, no lymphadenopathy Heart: RRR Respiratory: no wheezes, no rales, no ronchi, normal chest expansion Gastrointestinal: soft, non-tender, non-distended, normal bowel sounds Neurological: no new deficit Musculoskeletal: generalized weakness Psychiatric: normal affect, normal behavior, A&O x 3, oriented to person, oriented to place, oriented to time Hosp A/P (1) Multifocal pneumonia Code(s): J18.9 - PNEUMONIA, UNSPECIFIED ORGANISM Status: Acute (2) TIA (transient ischemic attack) Code(s): G45.9 - TRANSIENT CEREBRAL ISCHEMIC ATTACK, UNSPECIFIED Status: Acute (3) Altered mental status Code(s): R41.82 - ALTERED MENTAL STATUS, UNSPECIFIED Status: Acute Qualifiers: Altered mental status type: disorientation Qualified Code(s): R41.0 - Disorientation, unspecified (4) Hypokalemia Code(s): E87.6 - HYPOKALEMIA Status: Acute (5) History of CVA (cerebrovascular accident) Code(s): Z86.73 - PRSNL HX OF TIA (TIA), AND CEREB INFRC W/O RESID DEFICITS Status: Chronic (6) Hyperlipemia Code(s): E78.5 - HYPERLIPIDEMIA, UNSPECIFIED Status: Chronic (7) 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 Symptoms appears to have resolved at the time of arrival in the hospital. CT of the head was negative without any acute finding. CTA of the head and neck to be obtained. This will likely be delayed pending TB evaluations. This likely was a TIA that has completely resolved. 03/23/2020. Further evaluation with MRI of the brain with and without contrast did not show any acute CVA. We appreciate our neurologist colleague. 2. Concern for pulmonary tuberculosis. 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 He is a [facility] resident and I agree with testing for pulmonary TB. QuantiFERON gold test is pending. ID services has been consulted. We will await their further recommendations. 03/23/2020. QuantiFERON gold test is still pending. We will follow up on ID services recommendations. 3. Suspected pneumonia. Chest x-ray appears to be clean and so is a CT of the chest. He had no fever and his white count was normal. He denied any cough to me. He does have some incidental finding concerning for pulmonary tuberculosis. He was started on empiric IV antibiotics and we will continue this for now. He is being treated as [facility] acquired pneumonia with broad-spectrum IV antibiotics. Will defer to ID services about further recommendations. 03/23/2020. He remains on IV antibiotic and seems to be tolerating this so far. 4. Diabetes. This is by history but it appears that his hemoglobin A1c was 5.5. 6. Hypertension. We will resume his home medicines and optimize as needed.
[2020-03-23 12:37] LABS: Vancomycin, Trough 13.8 ug/mL
--- NOTE | 2020-03-23 17:07 | PQF ---
Please forward to Dr. Naylor. He saw the patient on 03/23/2020. Thanks. CLINICAL DOCUMENTATION CLARIFICATION FORM Dear Date: 03/23/2020 9350 Please exercise your independent, professional judgment in responding to the clarification form. Clinical indicators are provided on the bottom of this form for your review. Please check appropriate box(es): [ ] Encephalopathy: Type: [ ] Acute [ ] Subacute [ ] Chronic Etiology: [ ] Hypertensive [ ] Metabolic [ ] Toxic [ ] In the setting of underlying dementia [ ] Unspecified [ ] Other (please specify) [ ] Other diagnosis [ ] Unable to determine In addition, please specify: Present on Admission (POA): [ ] Yes [ ] No [ ] Unable to determine For continuity of documentation, please document condition throughout progress notes and discharge summary. Thank You. To be completed by CDI/Coding staff for physician review: CLINICAL INDICATORS - SIGNS / SYMPTOMS / LABS / RESULTS AND LOCATION IN EMR Patient was sent in for change in baseline, A/P: TIA, Altered Mental Status ( PN/Dayday) 03/22, 03/23 RISK FACTORS / RESULTS AND LOCATION IN EMR Advanced age (70), multifocal pneumonia, TIA ( H&P/ Dayday) 03/23 TREATMENTS / RESULTS AND LOCATION IN EMR Sodium Chloride IV ( 03/21- present) Levaquin IV ( 03/22 present) Neurology consult ( 03/22 /Donna) Thank you! CDS Signature: Angella Sanchez RN Phone #: [phone] Date/Time: 03/13/2020 This is a permanent part of the Medical Record [facility]
[2020-03-23] MEDS: Acetaminophen 325 MG TAB PO PRN (21:52)
[2020-03-23] MEDS: Latanoprost 0.005% Ophth Soln 2.5 ml Bottle EA EYE SCH (21:52)
[2020-03-23] MEDS: Atorvastatin Calcium 40 MG TAB PO SCH (21:52)
[2020-03-24 06:06] LABS: #Basophils 0.1 thou/uL (0.0-0.2); #Eosinphils 0.3 thou/uL (0.0-0.7); #Lymphocytes 3.8 thou/uL (1.20-3.40); #Neutrophils 4.7 thou/uL (1.40-6.50); %Basophils 1.3 % (0.0-1.0); %Eosinophils 2.6 % (0.0-10.0); %Lymphocytes 38.6 % (21.0-51.0); %Neutrophils 47.5 % (42.0-75.0); Hemoglobin 12.1 g/dL (14.0-18.0); Mean Corpuscular HGB CONC 33.8 g/dL (32.0-36.0); Mean Corpuscular Hemoglobin 32.1 pg (27.0-31.0); Mean Platelet Volume 8.8 fL (7.4-10.4); Platelet Count 300 thou/uL (130-400); RBC Distribution Width 12.4 % (11.5-14.5); Red Blood Cell (RBC) Count 3.76 mill/uL (4.70-6.10); White Blood Cell (WBC) Count 9.9 thou/uL (4.8-10.8)
[2020-03-24 06:24] LABS: Anion Gap 11 mmol/L (10-20); BUN (Urea Nitrogen) 13 mg/dL (8.4-25.7); Calc. Creatinine Clearance 61 mL/min (70-130); Carbon Dioxide 19 mmol/L (23-31); Chloride 113 mmol/L (98-107); Estimated GFR-MDRD 67; Glucose 102 mg/dL (83-110); Potassium 3.2 mmol/L (3.5-5.1); Sodium 140 mmol/L (136-145)
[2020-03-24] MEDS: Enoxaparin Sodium 40 MG/0.4 ML SYRINGE SC SCH (08:19)
[2020-03-24] MEDS: busPIRone HCl 10 MG TAB PO SCH ×2 (08:19→21:31)
[2020-03-24] MEDS: Famotidine 20 MG TAB PO SCH (08:19)
[2020-03-24] MEDS: Brimonidine Tartrate 0.2% Ophth Soln 5 ml Bottle EA EYE SCH ×4 (08:19→21:31)
[2020-03-24] MEDS: Aspirin 325 mg Enteric Coated Tablet PO SCH (08:19)
[2020-03-24] MEDS: Amlodipine 5 MG TAB PO SCH (08:19)
[2020-03-24] MEDS: DULoxetine 30 MG CAP PO SCH (08:19)
[2020-03-24] MEDS: Losartan 25 MG TAB PO SCH (08:20)
[2020-03-24] MEDS: Gabapentin 300 MG CAP PO SCH ×3 (08:20→21:31)
[2020-03-24] MEDS: Tamsulosin HCl 0.4 MG CAP PO SCH (08:20)
[2020-03-24] MEDS: Multivitamin W/ Minerals 1 TAB PO SCH (08:20)
[2020-03-24] MEDS ORDERED: Potassium Chloride 20 MEQ TAB PO SCH (08:30)
--- NOTE | 2020-03-24 10:56 | RAD ---
PORTABLE CHEST: 03/24/20 PROVIDED CLINICAL HISTORY: Pneumonia. COMPARISON: 03/21/2020 FINDINGS: Cardiac and mediastinal silhouette is unchanged in appearance. The lung parenchymal appears radiograp hically similar. No lobar consolidation, pleural fluid or pneumothorax apparent. IMPRESSION: Stable radiographic appearance of the chest. POS: RUKHSANA
[2020-03-24] MEDS: Finasteride 5 MG TAB PO SCH (11:26)
[2020-03-24] MEDS: Loperamide HCl 2 MG CAP PO SCH ×3 (11:26→23:04)
--- NOTE | 2020-03-24 11:26 | PDOC.HOSPP ---
- Subjective Encounter Date: 03/24/20 Encounter Time: 11:25 Subjective: Patient was seen and evaluated this morning. Overnight his blood cultures now growing Enterococcus faecalis. He is being followed up by ID services and currently he is on Levaquin. I would like to discuss this case with ID service and we will can add vancomycin to the coverage as well. His main complaint right now appears to be incontinence. He does have a history of BPH and is on Flomax. We will go ahead and recheck his urine analysis if he had any evidence of UTI. We will continue antibiotic therapy for now. Most recent chest x-ray still with bilateral pulmonary infiltrate concerning for pneumonia. - Objective Vital Signs & Weight: Vital Signs (12 hours) Temp Pulse Resp BP BP Pulse Ox 03/24/20 08:00 98.2 F 61 17 172/88 H 96 03/24/20 04:00 98.5 F 70 14 125/79 98 03/24/20 00:00 98.4 F 68 16 136/88 99 Weight Admit Weight 182 lb 6.4 oz Weight 182 lb 6.4 oz I&O: 03/23/20 03/24/20 03/25/20 06:59 06:59 05:59 Intake Total 1060 2580 440 Balance 1060 2580 440 Result Diagrams: 03/24/20 05:18 03/24/20 05:18 Additional Labs: Accuchecks 03/24/20 03/23/20 03/23/20 06:13 19:47 16:58 POC Glucose 98 126 H 140 H 03/23/20 03/23/20 03/22/20 10:43 06:09 16:48 POC Glucose 107 H 97 87 03/22/20 03/22/20 11:21 10:19 POC Glucose 158 H 161 H Radiology Reviewed by me: Yes EKG Reviewed by me: Yes Hospitalist ROS - Review of Systems Constitutional: reports: fever, weakness, malaise Gastrointestinal: reports: nausea Genitourinary: reports: incontinence Neurological: reports: weakness - Medication Medications: Active Medications Generic Name Dose Route Start Last Admin Trade Name Freq PRN Reason Stop Dose Admin Acetaminophen 650 mg 03/21/20 23:39 03/23/20 21:52 Acetaminophen 325 Mg Tab PO 650 mg Q4H PRN Administration Headache/Fever/Mild Pain (1-3) Amlodipine Besylate 5 mg 03/23/20 09:00 03/24/20 08:19 Amlodipine 5 Mg Tab PO 5 mg DAILY ST[facility] Administration Aspirin 325 mg 03/22/20 09:00 03/24/20 08:19 Aspirin 325 Mg Enteric Coated Tablet PO 325 mg DAILY ST[facility] Administration Atorvastatin Calcium 40 mg 03/22/20 21:00 03/23/20 21:52 Atorvastatin Calcium 40 Mg Tab PO 40 mg HS ST[facility]LEY Administration Brimonidine Tartrate 1 drop 03/22/20 15:00 03/24/20 08:19 Brimonidine Tartrate 0.2% Ophth Soln 5 Ml Bottle EA EYE 1 drop TID ST[facility] Administration Buspirone HCl 10 mg 03/22/20 21:00 03/24/20 08:19 Buspirone Hcl 10 Mg Tab PO 10 mg BID ST[facility] Administration Duloxetine HCl 30 mg 03/23/20 09:00 03/24/20 08:19 Duloxetine 30 Mg Cap PO 30 mg QAM ST[facility] Administration Enoxaparin Sodium 40 mg 03/22/20 09:00 03/24/20 08:19 Enoxaparin Sodium 40 Mg/0.4 Ml Syringe SC 40 mg 0900 ST[facility]LEY Administration Famotidine 20 mg 03/22/20 09:00 03/24/20 08:19 Famotidine 20 Mg Tab PO 20 mg DAILY [facility] Administration Gabapentin 300 mg 03/22/20 15:00 03/24/20 08:20 Gabapentin 300 Mg Cap PO 300 mg TID ST[facility] Administration Levofloxacin 750 mg/ Device 150 mls @ 100 mls/hr 03/22/20 20:00 03/23/20 21:52 IVPB 150 mls Q24HR ST[facility] Administration Sodium Chloride 1,000 mls @ 70 mls/hr 03/21/20 23:45 03/23/20 21:52 Normal Saline 0.9% IV 1,000 mls .[id number] ST[facility] Administration Insulin Human Lispro 0 units 03/22/20 03:38 03/22/20 11:37 Humalog 300 Units/3 Ml Vial SC 2 unit .MILD SLIDING SCALE PRN Administration Mild Correctional Scale Iron/Minerals/Multivitamins 1 tab 03/23/20 09:00 03/24/20 08:20 Multivitamin W/ Minerals 1 Tab PO 1 tab DAILY ST[facility] Administration Latanoprost 1 drop 03/22/20 21:00 03/23/20 21:52 Latanoprost 0.005% Ophth Soln 2.5 Ml Bottle EA EYE 1 drop HS ST[facility]LEY Administration Losartan Potassium 100 mg 03/23/20 09:00 03/24/20 08:20 Losartan 25 Mg Tab PO 100 mg DAILY [facility] Administration Sodium Chloride 10 ml 03/21/20 23:39 03/23/20 10:26 Flush - Normal Saline 10 Ml Syringe IVF 10 ml PRN PRN Administration Saline Flush Tamsulosin HCl 0.4 mg 03/23/20 09:00 03/24/20 08:20 Tamsulosin Hcl 0.4 Mg Cap PO 0.4 mg DAILY [facility] Administration - Exam General Appearance: awake alert Eye: PERRL, anicteric sclera ENT: normocephalic atraumatic, no oropharyngeal lesions, moist mucosa Neck: supple, symmetric, no JVD, no lymphadenopathy Heart: RRR Respiratory: CTAB, normal chest expansion, no tachypnea Gastrointestinal: soft, non-tender, non-distended Musculoskeletal: normal tone, normal strength, no muscle wasting Hosp A/P (1) Multifocal pneumonia Code(s): J18.9 - PNEUMONIA, UNSPECIFIED ORGANISM Status: Acute (2) TIA (transient ischemic attack) Code(s): G45.9 - TRANSIENT CEREBRAL ISCHEMIC ATTACK, UNSPECIFIED Status: Acute (3) Altered mental status Code(s): R41.82 - ALTERED MENTAL STATUS, UNSPECIFIED Status: Acute Qualifiers: Altered mental status type: disorientation Qualified Code(s): R41.0 - Disorientation, unspecified (4) Hypokalemia Code(s): E87.6 - HYPOKALEMIA Status: Acute (5) History of CVA (cerebrovascular accident) Code(s): Z86.73 - PRSNL HX OF TIA (TIA), AND CEREB INFRC W/O RESID DEFICITS Status: Chronic (6) Hyperlipemia Code(s): E78.5 - HYPERLIPIDEMIA, UNSPECIFIED Status: Chronic (7) 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 Symptoms appears to have resolved at the time of arrival in the hospital. CT of the head was negative without any acute finding. CTA of the head and neck to be obtained. This will likely be delayed pending TB evaluations. This likely was a TIA that has completely resolved. 03/23/2020. Further evaluation with MRI of the brain with and without contrast did not show any acute CVA. We appreciate our neurologist colleague. 03/24/2020. He remains neurologically intact with no focal deficit. Continue supportive care at this time. 2. Concern for pulmonary tuberculosis. 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 He is a custodial resident and I agree with testing for pulmonary TB. QuantiFERON gold test is pending. ID services has been consulted. We will await their further recommendations. 03/23/2020. QuantiFERON gold test is still pending. We will follow up on ID services recommendations. 03/24/2020. 3. Suspected pneumonia. Chest x-ray appears to be clean and so is a CT of the chest. He had no fever and his white count was normal. He denied any cough to me. He does have some incidental finding concerning for pulmonary tuberculosis. He was started on empiric IV antibiotics and we will continue this for now. He is being treated as custodial acquired pneumonia with broad-spectrum IV antibiotics. Will defer to ID services about further recommendations. 03/23/2020. He remains on IV antibiotic and seems to be tolerating this so far. 03/24/2020. Blood culture now positive for Enterococcus faecalis. Will defer to ID services about further antibiotic changes. 4) Enterococcus faecalis bacteremia. We will add vancomycin. We will discuss this further with ID services. 5. Diabetes. This is by history but it appears that his hemoglobin A1c was 5.5. 6. Hypertension. We will resume his home medicines and optimize as needed.
[2020-03-24 13:01] LABS: Bacteria/HPF None Seen HPF (None Seen); Bilirubin Negative (Negative); Blood, Urine Negative (Negative); Clarity Clear (Clear); Glucose, Urine (Dipstick) 200 mg/dL (Negative); Ketone, Urine Negative (Negative); Leukocyte Negative Leu/uL (Negative); Mucous/LPF 1+ LPF (<2+); Nitrite Negative (Negative); Protein, Urine (Dipstick) 600 mg/dL (Neg-Trace); RBC/HPF 0-3 HPF (0-3); Squamous Epithelial None Seen HPF (0-3); Urobilinogen Normal mg/dL (Less than 2); WBC/HPF 0-3 HPF (0-3)
[2020-03-24] MEDS: Sodium Chloride 0.9% 1,000 ML IV SCH (13:59)
--- NOTE | 2020-03-24 16:10 | PDOC.BPN ---
- Brief Progress Note Encounter Date: 03/24/20 Encounter Time: 16:08 Please add to the patient's previously stated diagnosis the followin. Toxic metabolic encephalopathy that was present on admission. This is likely in the context of infectious process.
--- NOTE | 2020-03-24 16:36 | PRG ---
DATE OF SERVICE: 03/24/2020 SUBJECTIVE: Mr. Washington is having some incontinence issues, but no respiratory symptoms. A little bit of cough. No abdominal pain. He is voiding in the diaper. OBJECTIVE: VITAL SIGNS: His vital signs showed T-max 98.5, BP 140/80, heart rate 67, respiratory rate 18, and O2 saturation 97 on room air. GENERAL: Does not appear in distress. He is oriented times self. He knew he was in the hospital, could not tell me what the name of it was. LUNGS: Symmetric air entry. HEART: S1 and S2 without murmurs. Few crackles at the right base. ABDOMEN: Soft, not distended or tender. Question of bladder distention. EXTREMITIES: Moves extremities equally. LABORATORY DATA: White cell count 9.9, hemoglobin 12.1, platelets 300, normal differential. Sodium 140, creatinine 1.29. Liver profile normal. Microbiology with 1/2 sets of blood cultures with Enterococcus faecalis. C diff in stool negative. ASSESSMENT AND DISCUSSION: Cerebrovascular accident in the past, hypertension, type 2 diabetes, cognitive dysfunction, scattered infiltrates mostly in the right side. The Enterococcus faecalis in the one set of blood cultures would suggest the possibility of aspiration pneumonia associated with E faecalis. He must have been prescribed antimicrobials in the past few times and that has led to replacement of his normal oral faith by E faecalis and other resistant pathogens, so typically E faecalis pneumonias are associated with aspiration and typically polymicrobial. Endocarditis is less likely in the face of only one positive set of blood cultures out of two. So, at this point, I would add ampicillin IV and then eventual transition to oral ampicillin and Levaquin for discharge planning. Job ID: [id number]
[2020-03-24] MEDS: Ampicillin 2 GM in Sodium Chloride 0.9% 100 ML IVPB SCH ×2 (17:53→23:05)
[2020-03-24] MEDS: Atorvastatin Calcium 40 MG TAB PO SCH (21:31)
[2020-03-24] MEDS: Latanoprost 0.005% Ophth Soln 2.5 ml Bottle EA EYE SCH (22:00)
[2020-03-24] MEDS ORDERED: Carvedilol 6.25 MG TAB PO SCH (22:15)
[2020-03-25] MEDS: Acetaminophen 325 MG TAB PO PRN ×2 (02:37→08:39)
[2020-03-25] MEDS: Sodium Chloride 0.9% 1,000 ML IV SCH ×3 (04:49→23:48)
[2020-03-25] MEDS: Loperamide HCl 2 MG CAP PO SCH ×4 (07:21→23:07)
[2020-03-25] MEDS: Ampicillin 2 GM in Sodium Chloride 0.9% 100 ML IVPB SCH ×4 (07:21→23:07)
[2020-03-25] MEDS: DULoxetine 30 MG CAP PO SCH (08:36)
[2020-03-25] MEDS: Aspirin 325 mg Enteric Coated Tablet PO SCH (08:36)
[2020-03-25] MEDS: Enoxaparin Sodium 40 MG/0.4 ML SYRINGE SC SCH (08:36)
[2020-03-25] MEDS: Famotidine 20 MG TAB PO SCH (08:36)
[2020-03-25] MEDS: Gabapentin 300 MG CAP PO SCH ×3 (08:37→20:50)
[2020-03-25] MEDS: busPIRone HCl 10 MG TAB PO SCH ×2 (08:37→20:51)
[2020-03-25] MEDS: Finasteride 5 MG TAB PO SCH (08:37)
[2020-03-25] MEDS: Losartan 25 MG TAB PO SCH (08:38)
[2020-03-25] MEDS: Carvedilol 6.25 MG TAB PO SCH ×2 (08:38→16:55)
[2020-03-25] MEDS: Multivitamin W/ Minerals 1 TAB PO SCH (08:38)
[2020-03-25] MEDS: Tamsulosin HCl 0.4 MG CAP PO SCH (08:39)
[2020-03-25] MEDS: Amlodipine 5 MG TAB PO SCH (08:39)
[2020-03-25] MEDS: Brimonidine Tartrate 0.2% Ophth Soln 5 ml Bottle EA EYE SCH ×3 (08:40→20:51)
--- NOTE | 2020-03-25 09:19 | PDOC.HOSPP ---
- Subjective Encounter Date: 03/25/20 Encounter Time: 09:18 Subjective: Patient was seen and evaluated this morning. He remains clinically about the same. His blood culture grew Enterococcus faecalis and ID services has started him on ampicillin. We will continue this for now. He is being treated for aspiration pneumonia. His main complaint remains urinary incontinence which he claims is new. I am going to start him on Pyridium as I suspect he may have spasms. He does have evidence of BPH. He is on Flomax. We will continue this for now. - Objective Vital Signs & Weight: Vital Signs (12 hours) Temp Pulse Resp BP BP Pulse Ox 03/25/20 08:18 98.6 F 66 16 166/89 H 99 03/25/20 07:55 98.5 F 67 16 166/89 H 99 03/25/20 04:09 98.5 F 68 18 176/88 H 98 03/24/20 23:42 98.3 F 69 16 148/88 H 99 Weight Admit Weight 182 lb 6.4 oz Weight 182 lb 6.4 oz I&O: 03/24/20 03/25/20 03/26/20 07:59 06:59 06:59 Intake Total Balance Result Diagrams: 03/24/20 05:18 03/24/20 05:18 Radiology Reviewed by me: Yes EKG Reviewed by me: Yes Hospitalist ROS - Review of Systems Constitutional: reports: weakness Respiratory: reports: cough, SOB with excertion Gastrointestinal: reports: nausea - Medication Medications: Active Medications Generic Name Dose Route Start Last Admin Trade Name Freq PRN Reason Stop Dose Admin Acetaminophen 650 mg 03/21/20 23:39 03/25/20 08:39 Acetaminophen 325 Mg Tab PO 650 mg Q4H PRN Administration Headache/Fever/Mild Pain (1-3) Amlodipine Besylate 5 mg 03/23/20 09:00 03/25/20 08:39 Amlodipine 5 Mg Tab PO 5 mg DAILY ST[facility] Administration Aspirin 325 mg 03/22/20 09:00 03/25/20 08:36 Aspirin 325 Mg Enteric Coated Tablet PO 325 mg DAILY ST[facility] Administration Atorvastatin Calcium 40 mg 03/22/20 21:00 03/24/20 21:31 Atorvastatin Calcium 40 Mg Tab PO 40 mg HS ST[facility] Administration Brimonidine Tartrate 1 drop 03/22/20 15:00 03/25/20 08:40 Brimonidine Tartrate 0.2% Ophth Soln 5 Ml Bottle EA EYE 1 drop TID ST[facility] Administration Buspirone HCl 10 mg 03/22/20 21:00 03/25/20 08:37 Buspirone Hcl 10 Mg Tab PO 10 mg BID ST[facility] Administration Carvedilol 12.5 mg 03/25/20 08:00 03/25/20 08:38 Carvedilol 6.25 Mg Tab PO 12.5 mg BID-WM ST[facility] Administration Duloxetine HCl 30 mg 03/23/20 09:00 03/25/20 08:36 Duloxetine 30 Mg Cap PO 30 mg QAM [facility] Administration Enoxaparin Sodium 40 mg 03/22/20 09:00 03/25/20 08:36 Enoxaparin Sodium 40 Mg/0.4 Ml Syringe SC 40 mg 0900 ST[facility] Administration Famotidine 20 mg 03/22/20 09:00 03/25/20 08:36 Famotidine 20 Mg Tab PO 20 mg DAILY [facility] Administration Finasteride 5 mg 03/24/20 09:00 03/25/20 08:37 Finasteride 5 Mg Tab PO 5 mg DAILY ST[facility] Administration Gabapentin 300 mg 03/22/20 15:00 03/25/20 08:37 Gabapentin 300 Mg Cap PO 300 mg TID ST[facility] Administration Levofloxacin 750 mg/ Device 150 mls @ 100 mls/hr 03/22/20 20:00 03/24/20 21:31 IVPB 150 mls Q24HR [facility] Administration Sodium Chloride 1,000 mls @ 70 mls/hr 03/21/20 23:45 03/25/20 05:49 Normal Saline 0.9% IV 1,000 mls .[id number] [facility] Administration Ampicillin Sodium 2 gm/ Sodium 100 mls @ 200 mls/hr 03/24/20 18:00 03/25/20 07:21 Chloride IVPB 100 mls Q6HR [facility] Administration Insulin Human Lispro 0 units 03/22/20 03:38 03/22/20 11:37 Humalog 300 Units/3 Ml Vial SC 2 unit .MILD SLIDING SCALE PRN Administration Mild Correctional Scale Iron/Minerals/Multivitamins 1 tab 03/23/20 09:00 03/25/20 08:38 Multivitamin W/ Minerals 1 Tab PO 1 tab DAILY [facility] Administration Latanoprost 1 drop 03/22/20 21:00 03/24/20 22:00 Latanoprost 0.005% Ophth Soln 2.5 Ml Bottle EA EYE 1 drop HS ST[facility] Administration Loperamide HCl 2 mg 03/24/20 12:00 03/25/20 07:21 Loperamide Hcl 2 Mg Cap PO 2 mg Q6HR [facility] Administration Losartan Potassium 100 mg 03/23/20 09:00 03/25/20 08:38 Losartan 25 Mg Tab PO 100 mg DAILY ST[facility] Administration Sodium Chloride 10 ml 03/21/20 23:39 03/23/20 10:26 Flush - Normal Saline 10 Ml Syringe IVF 10 ml PRN PRN Administration Saline Flush Tamsulosin HCl 0.4 mg 03/23/20 09:00 03/25/20 08:39 Tamsulosin Hcl 0.4 Mg Cap PO 0.4 mg DAILY ST[facility] Administration - Exam General Appearance: awake alert Eye: PERRL ENT: normocephalic atraumatic, no oropharyngeal lesions, moist mucosa Neck: supple, symmetric, no JVD, no lymphadenopathy Heart: RRR, no murmur, no gallops, no rubs, normal peripheral pulses Respiratory: CTAB, no wheezes, no rales, no ronchi, normal chest expansion, no tachypnea, normal percussion Gastrointestinal: soft, non-tender, non-distended, normal bowel sounds, no palpable masses, no hepatomegaly, no splenomegaly Extremities: no cyanosis, no clubbing, no edema Skin: normal turgor Neurological: cranial nerve grossly intact, normal sensation to touch, no weakness, no focal deficits Musculoskeletal: normal tone, normal strength, no muscle wasting Psychiatric: normal affect, normal behavior, A&O x 3 Hosp A/P (1) Multifocal pneumonia Code(s): J18.9 - PNEUMONIA, UNSPECIFIED ORGANISM Status: Acute Plan: Likely aspiration pneumonia. Continue antibiotic as we are doing. 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 Symptoms appears to have resolved at the time of arrival in the hospital. CT of the head was negative without any acute finding. CTA of the head and neck to be obtained. This will likely be delayed pending TB evaluations. This likely was a TIA that has completely resolved. 03/23/2020. Further evaluation with MRI of the brain with and without contrast did not show any acute CVA. We appreciate our neurologist colleague. 03/24/2020. He remains neurologically intact with no focal deficit. Continue supportive care at this time. 2. Concern for pulmonary tuberculosis. 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 He is a [facility] resident and I agree with testing for pulmonary TB. QuantiFERON gold test is pending. ID services has been consulted. We will await their further recommendations. 03/23/2020. QuantiFERON gold test is still pending. We will follow up on ID services recommendations. 03/24/2020. Await QuantiFERON gold test. 3. Suspected pneumonia. Chest x-ray appears to be clean and so is a CT of the chest. He had no fever and his white count was normal. He denied any cough to me. He does have some incidental finding concerning for pulmonary tuberculosis. He was started on empiric IV antibiotics and we will continue this for now. He is being treated as snf acquired pneumonia with broad-spectrum IV antibiotics. Will defer to ID services about further recommendations. 03/23/2020. He remains on IV antibiotic and seems to be tolerating this so far. 03/24/2020. Blood culture now positive for Enterococcus faecalis. Will defer to ID services about further antibiotic changes. 03/25/2020. Continue antibiotic as above. 4) Enterococcus faecalis bacteremia. We will add vancomycin. We will discuss this further with ID services. 03/25/2020. ID has added ampicillin to his antibiotic coverage. We will continue this for now. 5. Diabetes. This is by history but it appears that his hemoglobin A1c was 5.5. 6. Hypertension. We will resume his home medicines and optimize as needed.
[2020-03-25 09:36] LABS: #Basophils 0.1 thou/uL (0.0-0.2); #Eosinphils 0.4 thou/uL (0.0-0.7); #Monocytes 0.8 thou/uL (0.11-0.59); #Neutrophils 3.8 thou/uL (1.40-6.50); %Basophils 1.1 % (0.0-1.0); %Eosinophils 4.1 % (0.0-10.0); %Lymphocytes 43.9 % (21.0-51.0); %Monocytes 9.1 % (0.0-10.0); %Neutrophils 41.8 % (42.0-75.0); Hemoglobin 11.8 g/dL (14.0-18.0); Mean Corpuscular HGB CONC 34.3 g/dL (32.0-36.0); Mean Corpuscular Hemoglobin 32.9 pg (27.0-31.0); Mean Platelet Volume 8.2 fL (7.4-10.4); Platelet Count 296 thou/uL (130-400); RBC Distribution Width 12.5 % (11.5-14.5); Red Blood Cell (RBC) Count 3.58 mill/uL (4.70-6.10); White Blood Cell (WBC) Count 9.1 thou/uL (4.8-10.8)
[2020-03-25 09:53] LABS: Anion Gap 11 mmol/L (10-20); BUN (Urea Nitrogen) 9 mg/dL (8.4-25.7); Calc. Creatinine Clearance 67 mL/min (70-130); Calcium 8.7 mg/dL (7.8-10.44); Carbon Dioxide 19 mmol/L (23-31); Chloride 115 mmol/L (98-107); Estimated GFR-MDRD 74; Glucose 92 mg/dL (83-110); Potassium 3.5 mmol/L (3.5-5.1); Sodium 141 mmol/L (136-145)
[2020-03-25] MEDS: Phenazopyridine HCl 100 MG TAB PO SCH ×2 (12:06→16:56)
[2020-03-25] MEDS: Acetaminophen/Codeine 30-300mg Tablet PO PRN ×2 (16:54→23:06)
[2020-03-25] MEDS: Atorvastatin Calcium 40 MG TAB PO SCH (20:51)
[2020-03-25] MEDS: Latanoprost 0.005% Ophth Soln 2.5 ml Bottle EA EYE SCH (20:51)
[2020-03-26 05:08] LABS: #Basophils 0.1 thou/uL (0.0-0.2); #Eosinphils 0.4 thou/uL (0.0-0.7); #Lymphocytes 3.9 thou/uL (1.20-3.40); #Monocytes 0.8 thou/uL (0.11-0.59); #Neutrophils 3.3 thou/uL (1.40-6.50); %Basophils 0.8 % (0.0-1.0); %Eosinophils 4.2 % (0.0-10.0); %Lymphocytes 46.5 % (21.0-51.0); %Monocytes 9.1 % (0.0-10.0); %Neutrophils 39.4 % (42.0-75.0); Hemoglobin 10.8 g/dL (14.0-18.0); Mean Corpuscular HGB CONC 33.9 g/dL (32.0-36.0); Mean Corpuscular Hemoglobin 32.5 pg (27.0-31.0); Mean Corpuscular Volume 95.7 fL (78.0-98.0); Mean Platelet Volume 8.5 fL (7.4-10.4); Platelet Count 292 thou/uL (130-400); RBC Distribution Width 12.3 % (11.5-14.5); Red Blood Cell (RBC) Count 3.33 mill/uL (4.70-6.10); White Blood Cell (WBC) Count 8.3 thou/uL (4.8-10.8)
[2020-03-26] MEDS: Loperamide HCl 2 MG CAP PO SCH ×4 (05:11→18:06)
[2020-03-26] MEDS: Ampicillin 2 GM in Sodium Chloride 0.9% 100 ML IVPB SCH ×3 (05:11→18:06)
[2020-03-26 05:28] LABS: Anion Gap 9 mmol/L (10-20); BUN (Urea Nitrogen) 9 mg/dL (8.4-25.7); Calc. Creatinine Clearance 68 mL/min (70-130); Calcium 8.5 mg/dL (7.8-10.44); Carbon Dioxide 20 mmol/L (23-31); Chloride 114 mmol/L (98-107); Estimated GFR-MDRD 75; Glucose 80 mg/dL (83-110); Magnesium 1.6 mg/dL (1.6-2.6); Potassium 3.4 mmol/L (3.5-5.1); Sodium 140 mmol/L (136-145)
[2020-03-26] MEDS: Phenazopyridine HCl 100 MG TAB PO SCH ×3 (08:39→18:06)
[2020-03-26] MEDS: Brimonidine Tartrate 0.2% Ophth Soln 5 ml Bottle EA EYE SCH ×3 (08:39→21:02)
[2020-03-26] MEDS: Famotidine 20 MG TAB PO SCH (08:40)
[2020-03-26] MEDS: Losartan 25 MG TAB PO SCH (08:40)
[2020-03-26] MEDS: Aspirin 325 mg Enteric Coated Tablet PO SCH (08:40)
[2020-03-26] MEDS: DULoxetine 30 MG CAP PO SCH (08:40)
[2020-03-26] MEDS: Gabapentin 300 MG CAP PO SCH ×3 (08:41→20:55)
[2020-03-26] MEDS: Tamsulosin HCl 0.4 MG CAP PO SCH (08:41)
[2020-03-26] MEDS: Carvedilol 6.25 MG TAB PO SCH ×2 (08:41→16:19)
[2020-03-26] MEDS: busPIRone HCl 10 MG TAB PO SCH ×2 (08:41→20:56)
[2020-03-26] MEDS: Finasteride 5 MG TAB PO SCH (08:42)
[2020-03-26] MEDS: Amlodipine 5 MG TAB PO SCH (08:42)
[2020-03-26] MEDS: Multivitamin W/ Minerals 1 TAB PO SCH (08:42)
[2020-03-26] MEDS: Enoxaparin Sodium 40 MG/0.4 ML SYRINGE SC SCH (08:42)
[2020-03-26] MEDS: Acetaminophen/Codeine 30-300mg Tablet PO PRN ×2 (09:42→16:18)
--- NOTE | 2020-03-26 10:39 | PDOC.HOSPP ---
- Subjective Encounter Date: 03/26/20 Encounter Time: 10:38 Subjective: Patient seen and evaluated. He reports that he is doing very well. The incontinence seems to be resolving. He is being treated for Enterococcus bacteremia. He does have evidence of pneumonia. - Objective Vital Signs & Weight: Vital Signs (12 hours) Temp Pulse Resp BP BP Pulse Ox 03/26/20 08:40 97.5 F L 67 12 177/96 H 98 03/26/20 08:00 97.8 F 68 16 176/87 H 94 L 03/26/20 05:24 98.0 F 67 18 179/90 H 99 03/25/20 23:17 66 146/66 H Weight Admit Weight 182 lb 6.4 oz Weight 182 lb 6.4 oz I&O: 03/25/20 03/26/20 03/27/20 06:59 06:59 06:59 Intake Total 1080 Output Total 400 Balance 680 Result Diagrams: 03/26/20 04:26 03/26/20 04:26 Additional Labs: Accuchecks 03/26/20 05:38 POC Glucose 98 Radiology Reviewed by me: Yes EKG Reviewed by me: Yes Hospitalist ROS - Review of Systems Constitutional: reports: weakness, malaise Gastrointestinal: reports: nausea, vomiting, abdominal pain Neurological: reports: weakness, numbness - Medication Medications: Active Medications Generic Name Dose Route Start Last Admin Trade Name Freq PRN Reason Stop Dose Admin Acetaminophen 650 mg 03/21/20 23:39 03/25/20 08:39 Acetaminophen 325 Mg Tab PO 650 mg Q4H PRN Administration Headache/Fever/Mild Pain (1-3) Acetaminophen/Codeine Phosphate 1 tab 03/25/20 16:18 03/26/20 09:42 Acetaminophen/Codeine 30-300mg Tablet PO 1 tab Q6H PRN Administration Pain 4-6 Amlodipine Besylate 5 mg 03/23/20 09:00 03/26/20 08:42 Amlodipine 5 Mg Tab PO 5 mg DAILY ST[facility] Administration Aspirin 325 mg 03/22/20 09:00 03/26/20 08:40 Aspirin 325 Mg Enteric Coated Tablet PO 325 mg DAILY ST[facility] Administration Atorvastatin Calcium 40 mg 03/22/20 21:00 03/25/20 20:51 Atorvastatin Calcium 40 Mg Tab PO 40 mg HS ST[facility] Administration Brimonidine Tartrate 1 drop 03/22/20 15:00 03/26/20 08:39 Brimonidine Tartrate 0.2% Ophth Soln 5 Ml Bottle EA EYE 1 drop TID ST[facility] Administration Buspirone HCl 10 mg 03/22/20 21:00 03/26/20 08:41 Buspirone Hcl 10 Mg Tab PO 10 mg BID [facility] Administration Carvedilol 12.5 mg 03/25/20 08:00 03/26/20 08:41 Carvedilol 6.25 Mg Tab PO 12.5 mg BID-WM ST[facility] Administration Duloxetine HCl 30 mg 03/23/20 09:00 03/26/20 08:40 Duloxetine 30 Mg Cap PO 30 mg QAM [facility] Administration Enoxaparin Sodium 40 mg 03/22/20 09:00 03/26/20 08:42 Enoxaparin Sodium 40 Mg/0.4 Ml Syringe SC 40 mg 0900 ST[place] Administration Famotidine 20 mg 03/22/20 09:00 03/26/20 08:40 Famotidine 20 Mg Tab PO 20 mg DAILY [facility] Administration Finasteride 5 mg 03/24/20 09:00 03/26/20 08:42 Finasteride 5 Mg Tab PO 5 mg DAILY [facility] Administration Gabapentin 300 mg 03/22/20 15:00 03/26/20 08:41 Gabapentin 300 Mg Cap PO 300 mg TID ST[place] Administration Levofloxacin 750 mg/ Device 150 mls @ 100 mls/hr 03/22/20 20:00 03/25/20 20:50 IVPB 150 mls Q24HR [facility] Administration Sodium Chloride 1,000 mls @ 70 mls/hr 03/21/20 23:45 03/25/20 23:48 Normal Saline 0.9% IV 1,000 mls .[id number] [facility] Administration Ampicillin Sodium 2 gm/ Sodium 100 mls @ 200 mls/hr 03/24/20 18:00 03/26/20 05:11 Chloride IVPB 100 mls Q6HR [facility] Administration Insulin Human Lispro 0 units 03/22/20 03:38 03/22/20 11:37 Humalog 300 Units/3 Ml Vial SC 2 unit .MILD SLIDING SCALE PRN Administration Mild Correctional Scale Iron/Minerals/Multivitamins 1 tab 03/23/20 09:00 03/26/20 08:42 Multivitamin W/ Minerals 1 Tab PO 1 tab DAILY [facility] Administration Latanoprost 1 drop 03/22/20 21:00 03/25/20 20:51 Latanoprost 0.005% Ophth Soln 2.5 Ml Bottle EA EYE 1 drop HS [facility] Administration Loperamide HCl 2 mg 03/24/20 12:00 03/26/20 06:00 Loperamide Hcl 2 Mg Cap PO Not Given Q6HR ST[facility] Losartan Potassium 100 mg 03/23/20 09:00 03/26/20 08:40 Losartan 25 Mg Tab PO 100 mg DAILY ST[place] Administration Phenazopyridine HCl 100 mg 03/25/20 13:00 03/26/20 08:39 Phenazopyridine Hcl 100 Mg Tab PO 100 mg PC [facility] Administration Sodium Chloride 10 ml 03/21/20 23:39 03/23/20 10:26 Flush - Normal Saline 10 Ml Syringe IVF 10 ml PRN PRN Administration Saline Flush Tamsulosin HCl 0.4 mg 03/23/20 09:00 03/26/20 08:41 Tamsulosin Hcl 0.4 Mg Cap PO 0.4 mg DAILY [facility] Administration - Exam General Appearance: awake alert Eye: PERRL ENT: normocephalic atraumatic, no oropharyngeal lesions, moist mucosa Neck: supple, symmetric, no JVD, no lymphadenopathy Heart: RRR, no gallops, no rubs, normal peripheral pulses Respiratory: CTAB, no wheezes, no rales, no ronchi, normal chest expansion Gastrointestinal: soft, non-tender, non-distended, normal bowel sounds, no palpable masses Extremities: no cyanosis Musculoskeletal: normal tone, normal strength, no muscle wasting Psychiatric: normal affect, A&O x 3, oriented to person, oriented to place, oriented to time Hosp A/P (1) Multifocal pneumonia Code(s): J18.9 - PNEUMONIA, UNSPECIFIED ORGANISM Status: Acute Plan: He continues to tolerate his antibiotics. Continue this for now. (2) TIA (transient ischemic attack) Code(s): G45.9 - TRANSIENT CEREBRAL ISCHEMIC ATTACK, UNSPECIFIED Status: Resolved Plan: Stroke was ruled out. (3) Altered mental status Code(s): R41.82 - ALTERED MENTAL STATUS, UNSPECIFIED Status: Resolved Qualifiers: Altered mental status type: disorientation Qualified Code(s): R41.0 - Disorientation, unspecified Plan: Likely from infectious process. This has since resolved. He is back to his baseline. 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 Symptoms appears to have resolved at the time of arrival in the hospital. CT of the head was negative without any acute finding. CTA of the head and neck to be obtained. This will likely be delayed pending TB evaluations. This likely was a TIA that has completely resolved. 03/23/2020. Further evaluation with MRI of the brain with and without contrast did not show any acute CVA. We appreciate our neurologist colleague. 03/24/2020. He remains neurologically intact with no focal deficit. Continue supportive care at this time. 2. Concern for pulmonary tuberculosis. 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 He is a jail resident and I agree with testing for pulmonary TB. QuantiFERON gold test is pending. ID services has been consulted. We will await their further recommendations. 03/23/2020. QuantiFERON gold test is still pending. We will follow up on ID services recommendations. 03/24/2020. Await QuantiFERON gold test. 3. Suspected pneumonia. Chest x-ray appears to be clean and so is a CT of the chest. He had no fever and his white count was normal. He denied any cough to me. He does have some incidental finding concerning for pulmonary tuberculosis. He was started on empiric IV antibiotics and we will continue this for now. He is being treated as jail acquired pneumonia with broad-spectrum IV antibiotics. Will defer to ID services about further recommendations. 03/23/2020. He remains on IV antibiotic and seems to be tolerating this so far. 03/24/2020. Blood culture now positive for Enterococcus faecalis. Will defer to ID services about further antibiotic changes. 03/25/2020. Continue antibiotic as above. 4) Enterococcus faecalis bacteremia. We will add vancomycin. We will discuss this further with ID services. 03/25/2020. ID has added ampicillin to his antibiotic coverage. We will continue this for now. 5. Diabetes. This is by history but it appears that his hemoglobin A1c was 5.5. 6. Hypertension. We will resume his home medicines and optimize as needed.
[2020-03-26] MEDS ORDERED: Magnesium Sulfate 3 GM in Sodium Chloride 0.9% 100 ML IVPB SCH (10:45)
[2020-03-26] MEDS ORDERED: Potassium Chloride 20 MEQ TAB PO SCH (10:45)
--- NOTE | 2020-03-26 11:34 | PQF ---
CLINICAL DOCUMENTATION CLARIFICATION FORM: Dear Dr. Lopez Date: 03/26/2020 1130 Please exercise your independent, professional judgment in responding to the clarification form. Clinical indicators are provided on the bottom of this form for your review. Please check appropriate box(es): [ ] Encephalopathy: Type: [ X ] Acute [ ] Subacute [ ] Chronic Etiology: [ ] Hypertensive [ ] Metabolic [ X ] Toxic [ ] Hepatic with Coma [ ] Hepatic w/o Coma [ ] Hypoxic [ X ] Septic [ ] Wernickes [ ] Drug induced: [ ] In the setting of underlying dementia [ ] Unspecified [ ] Other (please specify) [ ] Transient Alteration of Awareness [ ] Other diagnosis [ ] Unable to determine In addition, please specify: Present on Admission (POA): [X ] Yes [ ] No [ ] Unable to determine For continuity of documentation, please document condition throughout progress notes and discharge summary. Thank You. To be completed by CDI/Coding staff for physician review: CLINICAL INDICATORS - SIGNS / SYMPTOMS / LABS / RESULTS AND LOCATION IN EMR Patient was sent in for change in baseline, A/P : TIA, Altered mental status (PN/Dayday) 03/22, 03/23 RISK FACTORS / RESULTS AND LOCATION IN EMR Advanced age (70), multifocal pneumonia, TIA (H&P/Dayday) 03/23 TREATMENTS / RESULTS AND LOCATION IN EMR Sodium Chloride IV ( 03/21-present) Levaquibn IV ( 03/22 present) Thank you! CDS Signature: Angella Sanchez RN Phone #: [phone] Date/Time:03/26/2020 113 DANIELA
[2020-03-26] MEDS: Sodium Chloride 0.9% 1,000 ML IV SCH (15:34)
[2020-03-26] MEDS: Atorvastatin Calcium 40 MG TAB PO SCH (20:56)
[2020-03-26] MEDS: Latanoprost 0.005% Ophth Soln 2.5 ml Bottle EA EYE SCH (21:03)
[2020-03-27] MEDS: Loperamide HCl 2 MG CAP PO SCH ×5 (00:54→23:48)
[2020-03-27] MEDS: Ampicillin 2 GM in Sodium Chloride 0.9% 100 ML IVPB SCH ×5 (00:54→23:47)
[2020-03-27] MEDS: Tamsulosin HCl 0.4 MG CAP PO SCH (10:17)
[2020-03-27] MEDS: Aspirin 325 mg Enteric Coated Tablet PO SCH (10:17)
[2020-03-27] MEDS: Phenazopyridine HCl 100 MG TAB PO SCH ×3 (10:17→17:22)
[2020-03-27] MEDS: DULoxetine 30 MG CAP PO SCH (10:17)
[2020-03-27] MEDS: Amlodipine 5 MG TAB PO SCH (10:17)
[2020-03-27] MEDS: Famotidine 20 MG TAB PO SCH (10:17)
[2020-03-27] MEDS: Finasteride 5 MG TAB PO SCH (10:18)
[2020-03-27] MEDS: Gabapentin 300 MG CAP PO SCH ×3 (10:18→20:40)
[2020-03-27] MEDS: Enoxaparin Sodium 40 MG/0.4 ML SYRINGE SC SCH (10:18)
[2020-03-27] MEDS: busPIRone HCl 10 MG TAB PO SCH ×2 (10:19→20:40)
[2020-03-27] MEDS: Multivitamin W/ Minerals 1 TAB PO SCH (10:19)
[2020-03-27] MEDS: Carvedilol 6.25 MG TAB PO SCH ×2 (10:19→17:22)
[2020-03-27] MEDS: Sodium Chloride 0.9% 1,000 ML IV SCH ×2 (10:19→23:47)
[2020-03-27] MEDS: Losartan 25 MG TAB PO SCH (10:19)
[2020-03-27] MEDS: Brimonidine Tartrate 0.2% Ophth Soln 5 ml Bottle EA EYE SCH ×4 (10:20→20:40)
--- NOTE | 2020-03-27 12:06 | PDOC.HOSPP ---
- Subjective Encounter Date: 03/27/20 Encounter Time: 12:05 Subjective: Patient seen and evaluated. He is doing really well today. He has no complaint whatsoever. He is tolerating his antibiotic for aspiration pneumonia. His blood culture was positive for Enterococcus faecalis. I will check with ID services about ongoing antibiotic treatment. He is probably close to being discharged home. - Objective Vital Signs & Weight: Vital Signs (12 hours) Temp Pulse Resp BP BP BP Pulse Ox 03/27/20 11:20 98.3 F 64 14 153/89 H 98 03/27/20 10:19 166/86 H 03/27/20 10:17 62 166/86 H 03/27/20 07:40 98.2 F 62 16 166/86 H 98 03/27/20 03:50 98.0 F 63 18 159/87 H 98 Weight Admit Weight 182 lb 6.4 oz Weight 182 lb 6.4 oz I&O: 03/26/20 03/27/20 03/28/20 06:59 06:59 06:59 Intake Total 1080 1720 Output Total 400 200 Balance 680 1520 Result Diagrams: 03/26/20 04:26 03/26/20 04:26 Radiology Reviewed by me: Yes EKG Reviewed by me: Yes Hospitalist ROS - Review of Systems Constitutional: reports: chills Eyes: reports: pain Respiratory: reports: cough, shortness of breath, SOB with excertion Gastrointestinal: reports: nausea Neurological: reports: weakness - Medication Medications: Active Medications Generic Name Dose Route Start Last Admin Trade Name Freq PRN Reason Stop Dose Admin Acetaminophen 650 mg 03/21/20 23:39 03/25/20 08:39 Acetaminophen 325 Mg Tab PO 650 mg Q4H PRN Administration Headache/Fever/Mild Pain (1-3) Acetaminophen/Codeine Phosphate 1 tab 03/25/20 16:18 03/26/20 16:18 Acetaminophen/Codeine 30-300mg Tablet PO 1 tab Q6H PRN Administration Pain 4-6 Amlodipine Besylate 5 mg 03/23/20 09:00 03/27/20 10:17 Amlodipine 5 Mg Tab PO 5 mg DAILY ST[facility] Administration Aspirin 325 mg 03/22/20 09:00 03/27/20 10:17 Aspirin 325 Mg Enteric Coated Tablet PO 325 mg DAILY [facility] Administration Atorvastatin Calcium 40 mg 03/22/20 21:00 03/26/20 20:56 Atorvastatin Calcium 40 Mg Tab PO 40 mg HS ST[place] Administration Brimonidine Tartrate 1 drop 03/22/20 15:00 03/27/20 10:20 Brimonidine Tartrate 0.2% Ophth Soln 5 Ml Bottle EA EYE 1 drop TID ST[place] Administration Buspirone HCl 10 mg 03/22/20 21:00 03/27/20 10:19 Buspirone Hcl 10 Mg Tab PO 10 mg BID [place] Administration Carvedilol 12.5 mg 03/25/20 08:00 03/27/20 10:19 Carvedilol 6.25 Mg Tab PO 12.5 mg BID-WM [facility] Administration Duloxetine HCl 30 mg 03/23/20 09:00 03/27/20 10:17 Duloxetine 30 Mg Cap PO 30 mg QAM [facility] Administration Enoxaparin Sodium 40 mg 03/22/20 09:00 03/27/20 10:18 Enoxaparin Sodium 40 Mg/0.4 Ml Syringe SC 40 mg 0900 [place] Administration Famotidine 20 mg 03/22/20 09:00 03/27/20 10:17 Famotidine 20 Mg Tab PO 20 mg DAILY [facility] Administration Finasteride 5 mg 03/24/20 09:00 03/27/20 10:18 Finasteride 5 Mg Tab PO 5 mg DAILY [place] Administration Gabapentin 300 mg 03/22/20 15:00 03/27/20 10:18 Gabapentin 300 Mg Cap PO 300 mg TID [place] Administration Levofloxacin 750 mg/ Device 150 mls @ 100 mls/hr 03/22/20 20:00 03/26/20 20:55 IVPB 150 mls Q24HR [facility] Administration Sodium Chloride 1,000 mls @ 70 mls/hr 03/21/20 23:45 03/27/20 10:19 Normal Saline 0.9% IV 1,000 mls .[id number] [facility] Administration Ampicillin Sodium 2 gm/ Sodium 100 mls @ 200 mls/hr 03/24/20 18:00 03/27/20 11:23 Chloride IVPB 100 mls Q6HR [facility] Administration Insulin Human Lispro 0 units 03/22/20 03:38 03/22/20 11:37 Humalog 300 Units/3 Ml Vial SC 2 unit .MILD SLIDING SCALE PRN Administration Mild Correctional Scale Iron/Minerals/Multivitamins 1 tab 10/30/20 09:00 03/27/20 10:19 Multivitamin W/ Minerals 1 Tab PO 1 tab DAILY [facility] Administration Latanoprost 1 drop 03/22/20 21:00 03/26/20 21:03 Latanoprost 0.005% Ophth Soln 2.5 Ml Bottle EA EYE 1 drop HS [facility] Administration Loperamide HCl 2 mg 03/24/20 12:00 03/27/20 11:04 Loperamide Hcl 2 Mg Cap PO Not Given Q6HR [facility] Losartan Potassium 100 mg 03/23/20 09:00 03/27/20 10:19 Losartan 25 Mg Tab PO 100 mg DAILY [facility] Administration Phenazopyridine HCl 100 mg 03/25/20 13:00 03/27/20 11:23 Phenazopyridine Hcl 100 Mg Tab PO 100 mg PC [facility] Administration Sodium Chloride 10 ml 03/21/20 23:39 03/23/20 10:26 Flush - Normal Saline 10 Ml Syringe IVF 10 ml PRN PRN Administration Saline Flush Tamsulosin HCl 0.4 mg 03/23/20 09:00 03/27/20 10:17 Tamsulosin Hcl 0.4 Mg Cap PO 0.4 mg DAILY [facility] Administration - Exam General Appearance: NAD, awake alert, ill appearing Eye: PERRL ENT: normocephalic atraumatic, no oropharyngeal lesions Neck: supple, symmetric, no lymphadenopathy Heart: RRR, no murmur, normal peripheral pulses Respiratory: CTAB, no wheezes, no rales, no ronchi, normal chest expansion Gastrointestinal: soft, non-tender, non-distended, normal bowel sounds, no palpable masses Neurological: cranial nerve grossly intact, normal sensation to touch, no weakness Musculoskeletal: normal tone, normal strength Hosp A/P (1) Multifocal pneumonia Code(s): J18.9 - PNEUMONIA, UNSPECIFIED ORGANISM Status: Acute Plan: He is clinically improved. We will continue antibiotic coverage. This is likely aspiration pneumonia. (2) TIA (transient ischemic attack) Code(s): G45.9 - TRANSIENT CEREBRAL ISCHEMIC ATTACK, UNSPECIFIED Status: Resolved Plan: No stroke. 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 Symptoms appears to have resolved at the time of arrival in the hospital. CT of the head was negative without any acute finding. CTA of the head and neck to be obtained. This will likely be delayed pending TB evaluations. This likely was a TIA that has completely resolved. 03/23/2020. Further evaluation with MRI of the brain with and without contrast did not show any acute CVA. We appreciate our neurologist colleague. 03/24/2020. He remains neurologically intact with no focal deficit. Continue supportive care at this time. 2. Concern for pulmonary tuberculosis. 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 He is a halfway resident and I agree with testing for pulmonary TB. QuantiFERON gold test is pending. ID services has been consulted. We will await their further recommendations. 03/23/2020. QuantiFERON gold test is still pending. We will follow up on ID services recommendations. 03/24/2020. Await QuantiFERON gold test. 3. Suspected pneumonia. Chest x-ray appears to be clean and so is a CT of the chest. He had no fever and his white count was normal. He denied any cough to me. He does have some incidental finding concerning for pulmonary tuberculosis. He was started on empiric IV antibiotics and we will continue this for now. He is being treated as halfway acquired pneumonia with broad-spectrum IV antibiotics. Will defer to ID services about further recommendations. 03/23/2020. He remains on IV antibiotic and seems to be tolerating this so far. 03/24/2020. Blood culture now positive for Enterococcus faecalis. Will defer to ID services about further antibiotic changes. 03/25/2020. Continue antibiotic as above. 4) Enterococcus faecalis bacteremia. We will add vancomycin. We will discuss this further with ID services. 03/25/2020. ID has added ampicillin to his antibiotic coverage. We will continue this for now. 5. Diabetes. This is by history but it appears that his hemoglobin A1c was 5.5. 6. Hypertension. We will resume his home medicines and optimize as needed.
--- NOTE | 2020-03-27 13:06 | PRG ---
DATE OF SERVICE: 03/27/2020 SUBJECTIVE: Mr. Washington is having his lunch, eating sandwiches. He does not like the meat because he does want to wear his dentures due to pain associated with probably poor feeding. He is not coughing anymore. No chest pain. No abdominal pain. Voiding without difficulty. OBJECTIVE: VITAL SIGNS: His temperature has been normal, blood pressure 150/80, heart rate 64, respiratory rate 14, O2 saturation 98% on room air. GENERAL: Appears comfortable at rest, he has left hemiparesis. LUNGS: With a few crackles, but less than before. No wheezing. HEART: S1 and S2. Diminished heart sounds. ABDOMEN: Not distended, quite soft, not tender. No bladder distention. NEUROLOGIC: He is awake, oriented, follows commands. LABORATORY DATA: SARS-CoV antibody was negative on March 22. White cell count is at 8.3, hemoglobin 10.8, platelets 292. Creatinine 1.16. IMAGING STUDIES: Echocardiogram of limited quality. ASSESSMENT AND DISCUSSION: Prior CVA; hypertension; cognitive dysfunction; infiltrates of right and left side, more concentrated on the right side; Enterococcus faecalis in one set of blood cultures with the possibility of aspiration pneumonia, typically polymicrobial in those circumstances, so I recommend transition to oral levofloxacin and continue ampicillin or amoxicillin for another 5 days approximately. Job ID: [id number] [facility]
[2020-03-27] MEDS: Acetaminophen 325 MG TAB PO PRN (14:31)
[2020-03-27] MEDS: Acetaminophen/Codeine 30-300mg Tablet PO PRN ×2 (14:34→22:10)
[2020-03-27] MEDS: Latanoprost 0.005% Ophth Soln 2.5 ml Bottle EA EYE SCH (20:39)
[2020-03-27] MEDS: Atorvastatin Calcium 40 MG TAB PO SCH (20:40)
[2020-03-28] MEDS: Acetaminophen/Codeine 30-300mg Tablet PO PRN ×2 (04:11→09:48)
[2020-03-28] MEDS: Loperamide HCl 2 MG CAP PO SCH ×3 (05:53→17:11)
[2020-03-28] MEDS: Ampicillin 2 GM in Sodium Chloride 0.9% 100 ML IVPB SCH ×3 (05:53→17:11)
[2020-03-28] MEDS: busPIRone HCl 10 MG TAB PO SCH ×2 (09:44→21:50)
[2020-03-28] MEDS: Carvedilol 6.25 MG TAB PO SCH ×2 (09:44→17:12)
[2020-03-28] MEDS: Finasteride 5 MG TAB PO SCH (09:44)
[2020-03-28] MEDS: Gabapentin 300 MG CAP PO SCH ×3 (09:44→21:50)
[2020-03-28] MEDS: Losartan 25 MG TAB PO SCH (09:45)
[2020-03-28] MEDS: Multivitamin W/ Minerals 1 TAB PO SCH (09:45)
[2020-03-28] MEDS: Aspirin 325 mg Enteric Coated Tablet PO SCH (09:45)
[2020-03-28] MEDS: DULoxetine 30 MG CAP PO SCH (09:45)
[2020-03-28] MEDS: Famotidine 20 MG TAB PO SCH (09:45)
[2020-03-28] MEDS: Phenazopyridine HCl 100 MG TAB PO SCH ×3 (09:45→17:11)
[2020-03-28] MEDS: Amlodipine 5 MG TAB PO SCH (09:45)
[2020-03-28] MEDS: Enoxaparin Sodium 40 MG/0.4 ML SYRINGE SC SCH (09:46)
[2020-03-28] MEDS: Tamsulosin HCl 0.4 MG CAP PO SCH (09:46)
[2020-03-28] MEDS: Brimonidine Tartrate 0.2% Ophth Soln 5 ml Bottle EA EYE SCH ×3 (09:46→21:50)
[2020-03-28] MEDS ORDERED: Lidocaine 5% Patch TD SCH (10:18)
[2020-03-28] MEDS: Sodium Chloride 0.9% 1,000 ML IV SCH (13:36)
[2020-03-28] MEDS ORDERED: Dextrose 5 % And 0.9 % NaCl 1,000 ML IV SCH (13:45)
--- NOTE | 2020-03-28 14:40 | PDOC.HOSPP ---
- Subjective Encounter Date: 03/28/20 Encounter Time: 14:39 Subjective: Patient was seen and evaluated. He is doing very well. He is asking about when he can be [facility]. It appears that a QuantiFERON test that was done earlier in this admission has not resulted. His [facility] would not take him until we have the negative results. Microbiology shows me that this would be probably ready within the next 2 business days. We will hold him for now pending those results. - Objective Vital Signs & Weight: Vital Signs (12 hours) Temp Pulse Pulse Resp BP BP BP 03/28/20 12:27 98.7 F 68 18 03/28/20 11:16 70 156/92 H 03/28/20 09:45 73 176/97 H 03/28/20 09:44 176/97 H 03/28/20 08:00 98.4 F 73 16 176/97 H 03/28/20 04:15 98.3 F 70 18 164/86 H BP Pulse Ox 03/28/20 12:27 123/58 L 96 03/28/20 11:16 03/28/20 09:45 03/28/20 09:44 03/28/20 08:00 96 03/28/20 04:15 97 Weight Admit Weight 182 lb 6.4 oz Weight 182 lb 6.4 oz I&O: 03/27/20 03/28/20 03/29/20 06:59 06:59 06:59 Intake Total 1720 Output Total 200 675 250 Balance 1520 -675 -250 Result Diagrams: 03/26/20 04:26 03/26/20 04:26 Radiology Reviewed by me: Yes EKG Reviewed by me: Yes Hospitalist ROS - Review of Systems ROS unobtainable: due to mental status Respiratory: reports: cough, shortness of breath, SOB with excertion Gastrointestinal: reports: nausea - Medication Medications: Active Medications Generic Name Dose Route Start Last Admin Trade Name Freq PRN Reason Stop Dose Admin Acetaminophen 650 mg 03/21/20 23:39 03/25/20 08:39 Acetaminophen 325 Mg Tab PO 650 mg Q4H PRN Administration Headache/Fever/Mild Pain (1-3) Acetaminophen/Codeine Phosphate 1 tab 03/25/20 16:18 03/28/20 09:48 Acetaminophen/Codeine 30-300mg Tablet PO 1 tab Q6H PRN Administration Pain 4-6 Amlodipine Besylate 5 mg 03/23/20 09:00 03/28/20 09:45 Amlodipine 5 Mg Tab PO 5 mg DAILY STANLEY Administration Aspirin 325 mg 03/22/20 09:00 03/28/20 09:45 Aspirin 325 Mg Enteric Coated Tablet PO 325 mg DAILY STANLEY Administration Atorvastatin Calcium 40 mg 03/22/20 21:00 03/27/20 20:40 Atorvastatin Calcium 40 Mg Tab PO 40 mg HS STANLEY Administration Brimonidine Tartrate 1 drop 03/22/20 15:00 03/28/20 13:36 Brimonidine Tartrate 0.2% Ophth Soln 5 Ml Bottle EA EYE 1 drop TID STANLEY Administration Buspirone HCl 10 mg 03/22/20 21:00 03/28/20 09:44 Buspirone Hcl 10 Mg Tab PO 10 mg BID STANLEY Administration Carvedilol 12.5 mg 03/25/20 08:00 03/28/20 09:44 Carvedilol 6.25 Mg Tab PO 12.5 mg BID-WM STANLEY Administration Duloxetine HCl 30 mg 03/23/20 09:00 03/28/20 09:45 Duloxetine 30 Mg Cap PO 30 mg QAM STANLEY Administration Enoxaparin Sodium 40 mg 03/22/20 09:00 03/28/20 09:46 Enoxaparin Sodium 40 Mg/0.4 Ml Syringe SC 40 mg 0900 STANLEY Administration Famotidine 20 mg 03/22/20 09:00 03/28/20 09:45 Famotidine 20 Mg Tab PO 20 mg DAILY STANLEY Administration Finasteride 5 mg 03/24/20 09:00 03/28/20 09:44 Finasteride 5 Mg Tab PO 5 mg DAILY STANLEY Administration Gabapentin 300 mg 03/22/20 15:00 03/28/20 13:35 Gabapentin 300 Mg Cap PO 300 mg TID STANLEY Administration Levofloxacin 750 mg/ Device 150 mls @ 100 mls/hr 03/22/20 20:00 03/27/20 20:40 IVPB 150 mls Q24HR STANLEY Administration Sodium Chloride 1,000 mls @ 70 mls/hr 03/21/20 23:45 03/28/20 13:36 Normal Saline 0.9% IV 1,000 mls .[id number] STANLEY Administration Ampicillin Sodium 2 gm/ Sodium 100 mls @ 200 mls/hr 03/24/20 18:00 03/28/20 11:55 Chloride IVPB 100 mls Q6HR STANLEY Administration Insulin Human Lispro 0 units 03/22/20 03:38 03/22/20 11:37 Humalog 300 Units/3 Ml Vial SC 2 unit .MILD SLIDING SCALE PRN Administration Mild Correctional Scale Iron/Minerals/Multivitamins 1 tab 03/23/20 09:00 03/28/20 09:45 Multivitamin W/ Minerals 1 Tab PO 1 tab DAILY STANLEY Administration Latanoprost 1 drop 03/22/20 21:00 03/27/20 20:39 Latanoprost 0.005% Ophth Soln 2.5 Ml Bottle EA EYE 1 drop HS STANLEY Administration Lidocaine 2 patch 03/28/20 10:18 03/28/20 10:47 Lidocaine 5% Patch TD 03/28/20 21:00 2 patch NOW STANLEY Administration Loperamide HCl 2 mg 03/24/20 12:00 03/28/20 11:56 Loperamide Hcl 2 Mg Cap PO Not Given Q6HR STANLEY Losartan Potassium 100 mg 03/23/20 09:00 03/28/20 09:45 Losartan 25 Mg Tab PO 100 mg DAILY STANLEY Administration Phenazopyridine HCl 100 mg 03/25/20 13:00 03/28/20 11:56 Phenazopyridine Hcl 100 Mg Tab PO 100 mg PC STANLEY Administration Sodium Chloride 10 ml 03/21/20 23:39 03/23/20 10:26 Flush - Normal Saline 10 Ml Syringe IVF 10 ml PRN PRN Administration Saline Flush Tamsulosin HCl 0.4 mg 03/23/20 09:00 03/28/20 09:46 Tamsulosin Hcl 0.4 Mg Cap PO 0.4 mg DAILY STANLEY Administration - Exam General Appearance: awake alert Eye: PERRL ENT: normocephalic atraumatic, no oropharyngeal lesions, moist mucosa Neck: supple, no JVD, no lymphadenopathy Heart: RRR, no murmur, no gallops, normal peripheral pulses Respiratory: CTAB, no wheezes, no rales, no ronchi, normal chest expansion, no tachypnea Gastrointestinal: soft, non-tender, non-distended, normal bowel sounds, no palpable masses, no guarding, tender to palpation Extremities: no cyanosis Skin: normal turgor Neurological: no focal deficits Musculoskeletal: normal tone Hosp A/P (1) Multifocal pneumonia Code(s): J18.9 - PNEUMONIA, UNSPECIFIED ORGANISM Status: Acute (2) TIA (transient ischemic attack) Code(s): G45.9 - TRANSIENT CEREBRAL ISCHEMIC ATTACK, UNSPECIFIED Status: Resolved (3) Hypokalemia Code(s): E87.6 - HYPOKALEMIA Status: Acute (4) History of CVA (cerebrovascular accident) Code(s): Z86.73 - PRSNL HX OF TIA (TIA), AND CEREB INFRC W/O RESID DEFICITS Status: Chronic (5) Hyperlipemia Code(s): E78.5 - HYPERLIPIDEMIA, UNSPECIFIED Status: Chronic Qualifiers: Hyperlipidemia type: mixed hyperlipidemia Qualified Code(s): E78.2 - Mixed hyperlipidemia (6) 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 Symptoms appears to have resolved at the time of arrival in the hospital. CT of the head was negative without any acute finding. CTA of the head and neck to be obtained. This will likely be delayed pending TB evaluations. This likely was a TIA that has completely resolved. 03/23/2020. Further evaluation with MRI of the brain with and without contrast did not show any acute CVA. We appreciate our neurologist colleague. 03/24/2020. He remains neurologically intact with no focal deficit. Continue supportive care at this time. 2. Concern for pulmonary tuberculosis. 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 He is a [facility] and I agree with testing for pulmonary TB. QuantiFERON gold test is pending. ID services has been consulted. We will await their further recommendations. 03/23/2020. QuantiFERON gold test is still pending. We will follow up on ID services recommendations. 03/24/2020. Await QuantiFERON gold test. 03/28/2020. QuantiFERON test is still pending. His [facility] is pending the result. 3. Suspected pneumonia. Chest x-ray appears to be clean and so is a CT of the chest. He had no fever and his white count was normal. He denied any cough to me. He does have some incidental finding concerning for pulmonary tuberculosis. He was started on empiric IV antibiotics and we will continue this for now. He is being treated as [facility] acquired pneumonia with broad-spectrum IV antibiotics. Will defer to ID services about further recommendations. 03/23/2020. He remains on IV antibiotic and seems to be tolerating this so far. 03/24/2020. Blood culture now positive for Enterococcus faecalis. Will defer to ID services about further antibiotic changes. 03/25/2020. Continue antibiotic as above. 4) Enterococcus faecalis bacteremia. We will add vancomycin. We will discuss this further with ID services. 03/25/2020. ID has added ampicillin to his antibiotic coverage. We will continue this for now. 5. Diabetes. This is by history but it appears that his hemoglobin A1c was 5.5. 6. Hypertension. We will resume his home medicines and optimize as needed.
[2020-03-28 19:08] LABS: QuantiFERON-TB Gold Plus Negative (Negative)
[2020-03-28] MEDS ORDERED: Lidocaine Patch Removal 1 EACH TOP SCH (21:00)
[2020-03-28] MEDS: Atorvastatin Calcium 40 MG TAB PO SCH (21:50)
[2020-03-28] MEDS: Latanoprost 0.005% Ophth Soln 2.5 ml Bottle EA EYE SCH (21:51)
[2020-03-29] MEDS: Ampicillin 2 GM in Sodium Chloride 0.9% 100 ML IVPB SCH ×2 (00:32→05:38)
[2020-03-29] MEDS: Loperamide HCl 2 MG CAP PO SCH ×2 (00:33→07:47)
[2020-03-29] MEDS: Sodium Chloride 0.9% 1,000 ML IV SCH (05:38)
[2020-03-29 08:40] VITALS: TEMP 98.2
[2020-03-29] MEDS ORDERED: Lidocaine 5% Patch TD SCH (09:00)
[2020-03-29] MEDS: Amlodipine 5 MG TAB PO SCH (09:42)
[2020-03-29] MEDS: Carvedilol 6.25 MG TAB PO SCH (09:42)
[2020-03-29] MEDS: Famotidine 20 MG TAB PO SCH (09:43)
[2020-03-29] MEDS: Tamsulosin HCl 0.4 MG CAP PO SCH (09:44)
[2020-03-29] MEDS: Phenazopyridine HCl 100 MG TAB PO SCH (09:45)
[2020-03-29] MEDS: Finasteride 5 MG TAB PO SCH (09:46)
[2020-03-29] MEDS: Losartan 25 MG TAB PO SCH (09:46)
[2020-03-29] MEDS: Aspirin 325 mg Enteric Coated Tablet PO SCH (09:47)
[2020-03-29] MEDS: Gabapentin 300 MG CAP PO SCH (09:48)
[2020-03-29] MEDS: Multivitamin W/ Minerals 1 TAB PO SCH (09:49)
[2020-03-29] MEDS: DULoxetine 30 MG CAP PO SCH (09:50)
[2020-03-29] MEDS: busPIRone HCl 10 MG TAB PO SCH (09:50)
[2020-03-29] MEDS: Brimonidine Tartrate 0.2% Ophth Soln 5 ml Bottle EA EYE SCH (09:51)
[2020-03-29] MEDS: Enoxaparin Sodium 40 MG/0.4 ML SYRINGE SC SCH (09:51)
[2020-03-29 10:53] VITALS: BP 172/86
--- NOTE | 2020-03-29 14:09 | PDOC.DS.DS ---
Provider - Provider Date of Admission: 03/21/20 22:28 Date of Discharge: 03/29/20 Admitting Provider: Ulysses Varela Consultations: Neurology Primary Care Physician: Nadya Gabriel MD Course - Hospital Course Hospital Course: This is a 70-year-old patient who [facility] was [facility] to the hospital after he was noted to have a right-sided facial drooping and slurred speech. He was sent into the hospital due to concern for an acute stroke. He did rule out for stroke during his hospital stay. He also had no evidence of a seizure. He had a CT on admission here that showed multifocal pneumonia and he was placed in the hospital for further treatment. He required empiric IV antibiotics and cultures were collected. His blood culture grew Enterococcus faecalis. He was seen during this visit by SARAH major who helped with antibiotic coverage. During this visit there was admission about possibility of pulmonary tuberculosis. QuantiFERON gold test was obtained and this was negative. Patient reported to me that he was treated for tuberculosis in the year 1972. He has not been symptomatic ever since then. At any rate he did well and was stable enough to discharge to the [facility] today. Resuscitation Status: 03/21/20 23:39 Resuscitation Status Routine Resuscitation Status: FULL: Full Resuscitation - Labs Lab Results: 03/26/20 04:26 03/26/20 04:26 Microbiology - Entire Visit 03/21/20 18:49 Venous blood - Right Hand Blood Culture - Final NO GROWTH IN 5 DAYS 03/21/20 18:34 Venous blood - Left Arm Blood Culture - Final Enterococcus faecalis 03/22/20 19:24 Sputum - Unspecified Respiratory Culture - Final 03/24/20 04:42 Stool C. difficile GDH Antigen & Toxins - Final - Physical Exam Vitals: Vital Signs (12 hours) Temp Pulse Resp BP BP Pulse Ox 03/29/20 10:40 172/86 H 03/29/20 08:37 98 03/29/20 08:00 98.2 F 67 20 181/96 H 98 03/29/20 04:00 97.8 F 93 14 185/85 H 96 Weight Admit Weight 182 lb 6.4 oz Weight 182 lb 6.4 oz Physical Exam: The patient was seen and examined on the day of discharge. Problem - Discharge Plan Assessment: Patient seems to be doing very well and will be [facility] to the [facility]. - Problem (1) Multifocal pneumonia Code(s): J18.9 - PNEUMONIA, UNSPECIFIED ORGANISM Status: Acute Plan: This has resolved. He will [facility] his antibiotic at the [facility]. (2) Hypokalemia Code(s): E87.6 - HYPOKALEMIA Status: Acute (3) History of CVA (cerebrovascular accident) Code(s): Z86.73 - PRSNL HX OF TIA (TIA), AND CEREB INFRC W/O RESID DEFICITS Status: Chronic (4) Hyperlipemia Code(s): E78.5 - HYPERLIPIDEMIA, UNSPECIFIED Status: Chronic Qualifiers: Hyperlipidemia type: mixed hyperlipidemia Qualified Code(s): E78.2 - Mixed hyperlipidemia Plan: He will resume his home medicines. 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; H54.7 - UNSPECIFIED VISUAL LOSS Status: Chronic Plan - Discharge Medications Prescriptions: Ampicillin Trihydrate 500 mg PO TID #12 capsule Levofloxacin [Levaquin] 500 mg PO DAILY #3 tab Lidocaine 5% Patch [Lidoderm 5% Patch] 2 patch TD DAILY 14 Days #28 patch Losartan Potassium 100 mg PO DAILY #30 tablet Phenazopyridine HCl [Pyridium] 100 mg PO PC #30 tab Home Medications: Medication Instructions Recorded Confirmed Type Latanoprost [Latanoprost 0.05% 1 drop EA EYE HS 01/03/17 03/22/20 History Ophth] amLODIPine Besylate [Amlodipine 5 mg PO DAILY 01/03/17 03/22/20 History Besylate] metFORMIN [Glucophage] 500 mg PO BID-WM tab 01/06/17 03/22/20 Rx Acetaminophen [Tylenol Arthritis] 650 mg PO Q6H PRN 12/01/17 03/22/20 History Brimonidine Tartrate [Alphagan 1 drop EA EYE TID 12/01/17 03/22/20 History 0.2% Ophth Soln] Famotidine 40 mg PO DAILY 12/01/17 03/22/20 History Aspirin [Ecotrin Regular Strength] 325 mg PO DAILY #0 tab 08/02/18 03/22/20 Rx Atorvastatin Calcium [Lipitor] 40 mg PO HS tab 08/02/18 03/22/20 Rx Acetaminophen With Codeine 1 tablet PO Q6HR PRN 10/28/19 03/22/20 History [Tylenol with Codeine #3] Artificial Tears [Tears Naturale 1 drop EA EYE Q6HR PRN 10/28/19 03/22/20 Hi story Free] Polyethylene Glycol 3350 [Miralax] 17 gm PO DAILY 10/28/19 03/22/20 History Promethazine [Phenergan] 25 mg PO Q12HR PRN 10/28/19 03/22/20 History Tamsulosin HCl [Flomax] 0.4 mg PO DAILY 10/28/19 03/22/20 History guaiFENesin [Guaifenesin] 10 ml PO Q6HR PRN 10/28/19 03/22/20 History DULoxetine HCl [Cymbalta] 30 mg PO QAM 03/22/20 03/22/20 History Gabapentin [Neurontin] 300 mg PO TID 03/22/20 03/22/20 History busPIRone HCl [Buspirone HCl] 10 mg PO BID 03/22/20 03/22/20 History Acetaminophen [Tylenol Regular 650 mg PO Q4H PRN tab 03/29/20 Rx Strength] Ampicillin Trihydrate 500 mg PO TID #12 capsule 03/29/20 Rx Aspirin [Ecotrin Regular Strength] 325 mg PO DAILY tab 03/29/20 Rx Atorvastatin Calcium [Lipitor] 40 mg PO HS tab 03/29/20 Rx Carvedilol [Coreg] 12.5 mg PO BID-WM tab 03/29/20 Rx Levofloxacin [Levaquin] 500 mg PO DAILY #3 tab 03/29/20 Rx Lidocaine 5% Patch [Lidoderm 5% 2 patch TD DAILY 14 Days #28 patch 03/29/20 Rx Patch] Losartan Potassium 100 mg PO DAILY #30 tablet 03/29/20 Rx Phenazopyridine HCl [Pyridium] 100 mg PO PC #30 tab 03/29/20 Rx Allergies: No Known Allergies Allergy (Verified 03/22/20 01:56) - Discharge Instructions Activity:: Activity as Tolerated Nourishment:: Heart Healthy Diet, No Added Salt Diet Therapies:: Occupational Therapy, Physical Therapy Equipment/Supplies:: Not Applicable IV Therapy:: Not Applicable - Follow up Plan Referrals: Nadya Gabriel MD [Primary Care Provider] - Disposition: RESIDENTIAL/ASSISTED LIVING Quality - Care Measures CORE MEASURES:: N/A
--- NOTE | 2020-03-30 04:42 | PQF ---
Dear : Duncan Naylor Date 03/30/20 Please exercise your independent, professional judgment in responding to the clarification form. Clinical indicators are provided on the bottom of this form for your review Can you please further clarify the diagnosis of the patient? Please check appropriate box(es): [ ] Sepsis due to Aspiration Pneumonia [ ] Sepsis due Bacterial Pneumonia [ ] Aspiration Pneumonia without sepsis [ x ] Bacterial Pneumonia without sepsis [ ] Other diagnosis please specify [ ] Unable to determine In addition, please specify: Present on Admission (POA): [ ] Yes [ ] No [ x ] Unable to determine Physician Signature: Date/Time: For continuity of documentation, please document condition throughout progress notes and discharge summary. Thank You. To be completed by CDI/Coding staff for physician review: Present Clinical Indicators - Signs / Symptoms / Labs Results and Location in Medical Record [ x ] VS: BP 167/ 104, P: 60, RR: 15, T: 97.9 ED Provider pg.2 [ x ] Was diagnosed with multifocal pneumonia H and P pg.1 [ x ] CT consistent with multifocal pneumonia H and P pg.3 [ x ] Differential diagnosis includes aspiration pneumonia, bacterial versus COVID SARS-COV2 infection Consult pg.3 [ x ] Enterococcus faecalis in the one set of blood culture would suggest the possibility of aspiration pneumonia associated with E. faecalis PN pg.1 03/24 [ x ] Acute toxic, Septic encephalopathy Physician query pg.1 [ x ] Tolerating his antibiotic for aspiration pneumonia Hospitalist PN pg.1 03/27 [ x ] His blood culture was posotive for Enterococcus faecalis Hospitalist PN pg.1 03/27 [ x ] WBC: 9.8, 9.8, 9.9, 9.1, 8.3 Laboratory [ x ] Lactic 1.2 Laboratory Present Risk Factors Results and Location in Medical Record [ x ] Multifocal pneumonia H and P pg.2 [ x ] 70 years old H and P pg.1 [ x ] TIA H and P pg.2 [ x ] HTN H and P pg.2 [ x ] HLD H and P pg.2 [ x ] DM ED Notes 03/21 Present Treatments Results and Location in Medical Record [ x ] Chest/Thorax CTA 03/21 [ x ] Chest X ray 03/24 [ x ] Infectious Consut Dr. Hutchinson 03/22 [ x ] Blood culture Microbiology [ x ] IV Fluids MAR [ x ] Cefepime 2gm IV MAR [ x ] Levofloxacin 750mg IV MAR [ x ] Vancomycin 1gm IV MAR [ x ] Ampicillin 2gm IV MAR CDS/Acid Maker Signature: Vega Goel Phone #: ext [phone] Date 03/30/20 This is a permanent part of the Medical Record [facility]
== END 2020-03-29 13:14 | DRG 177 ==
LOC: ERS 16:29 → 2SE 22:28
PROVIDERS: ADMIT Internal Medicine; ATTEND Hospitalist
DX: J15.8 Pneumonia due to other specified bacteria (principal); G92 Toxic encephalopathy; G45.9 Transient cerebral ischemic attack, unspecified; R78.81 Bacteremia; E87.6 Hypokalemia; E78.5 Hyperlipidemia, unspecified; E11.39 Type 2 diabetes mellitus with other diabetic ophthalmic complication; E11.22 Type 2 diabetes mellitus with diabetic chronic kidney disease; I12.9 Hypertensive chronic kidney disease with stage 1 through stage 4 chronic kidney disease, or unspecified chronic kidney disease; N40.0 Benign prostatic hyperplasia without lower urinary tract symptoms; B95.2 Enterococcus as the cause of diseases classified elsewhere; I25.5 Ischemic cardiomyopathy; H54.7 Unspecified visual loss; Z79.4 Long term (current) use of insulin; Z86.73 Personal history of transient ischemic attack (TIA), and cerebral infarction without residual deficits; Z20.828 Contact with and (suspected) exposure to other viral communicable diseases
CPT/HCPCS: 36415; 36416; 70553; 71045; 71275; 80048; 80053; 80061; 80202; 81003; 81015; 83036; 83605; 83735; 84145; 85007; 85025; 85027; 85379; 86140; 86480; 86769; 87040; 87070; 87077; 87149; 87186; 87205; 87324; 87449; 87635; 87899; 93306; A9579; J0290; J0692; J1650; J1956; J3370; J3475; J3490; Q9967; U0003

== ENCOUNTER 2020-04-23 10:48 | Observation (INO) | payer MEDICARE, OTHER ==
--- NOTE | 2020-04-23 11:52 | RAD ---
PORTABLE CHEST: Date: 04/23/2020 PROVIDED CLINICAL HISTORY: Weakness. FINDINGS: Comparison with 03/24/2020. Cardiac and mediastinal silhouette is unchanged in appearance. No focal consolidation, pleural fluid, or pneumothorax apparent. IMPRESSION: No evidence for an acute cardiopulmonary process. POS: RUKHSANA
[2020-04-23 12:03] LABS: #Basophils 0.1 thou/uL (0.0-0.2); #Eosinphils 0.1 thou/uL (0.0-0.7); #Lymphocytes 2.9 thou/uL (1.20-3.40); #Monocytes 0.8 thou/uL (0.11-0.59); #Neutrophils 6.2 thou/uL (1.40-6.50); %Basophils 1.3 % (0.0-1.0); %Eosinophils 1.5 % (0.0-10.0); %Lymphocytes 28.5 % (21.0-51.0); %Monocytes 7.4 % (0.0-10.0); %Neutrophils 61.3 % (42.0-75.0); Hemoglobin 11.5 g/dL (14.0-18.0); Mean Corpuscular HGB CONC 32.1 g/dL (32.0-36.0); Mean Corpuscular Hemoglobin 31.7 pg (27.0-31.0); Mean Corpuscular Volume 98.8 fL (78.0-98.0); Mean Platelet Volume 7.3 fL (7.4-10.4); Platelet Count 328 thou/uL (130-400); RBC Distribution Width 12.2 % (11.5-14.5); Red Blood Cell (RBC) Count 3.63 mill/uL (4.70-6.10); White Blood Cell (WBC) Count 10.1 thou/uL (4.8-10.8)
--- NOTE | 2020-04-23 12:25 | CT ---
CT BRAIN: DATE: 04/23/2020. PROVIDED CLINICAL HISTORY: None. FINDINGS: Comparison is made with the examination dated 03/21/2020. The ventricular system appears stable in s ize and morphology. There is no evidence for intracranial hemorrhage or mass effect. Encephalomalac ia involving the left PICA distribution and right HAIRMASTERS MANAGER distribution are redemonstrated. Chronic micro vascular ischemic changes are also again seen. There is no evidence for an acute abnormality involvi ng the extracranial soft tissues or osseous structures. IMPRESSION: 1. No evidence for intracranial hemorrhage or mass effect. 2. Redemonstration of remote left posterior inferior cerebellar artery and right HAIRMASTERS MANAGER distribution in farctions. POS: RUKHSANA
[2020-04-23 12:26] LABS: ALT (SGPT) 14 U/L (8-55); AST (SGOT) 25 U/L (5-34); Albumin 2.8 g/dL (3.4-4.8); Alkaline Phosphatase 102 U/L (40-110); Anion Gap 14 mmol/L (10-20); BUN (Urea Nitrogen) 19 mg/dL (8.4-25.7); Bilirubin, Total 0.5 mg/dL (0.2-1.2); Calc. Creatinine Clearance 0 mL/min (70-130); Calcium 9.1 mg/dL (7.8-10.44); Carbon Dioxide 21 mmol/L (23-31); Chloride 107 mmol/L (98-107); Estimated GFR-MDRD 65; Globulin 3.5 g/dL (2.4-3.5); Glucose 149 mg/dL (83-110); Potassium 4.1 mmol/L (3.5-5.1); Protein, Total 6.3 g/dL (5.8-8.1); Sodium 138 mmol/L (136-145)
[2020-04-23] MEDS ORDERED: Aspirin 325 MG TAB ONE (12:34)
[2020-04-23 12:47] LABS: CKMB 2.2 ng/mL (0-6.6)
[2020-04-23] MEDS ORDERED: Dextrose 50% Abboject 50 ML SYRINGE SLOW IVP PRN (13:30)
[2020-04-23] MEDS ORDERED: Dextrose 5% in Water 1,000 ML IV PRN (13:30)
[2020-04-23] MEDS ORDERED: Bisacodyl 10 MG SUPP PR PRN (13:30)
[2020-04-23] MEDS ORDERED: Acetaminophen 325 MG TAB PO PRN (13:30)
[2020-04-23] MEDS ORDERED: HumaLOG 300 UNITS/3 ML VIAL SC PRN ×2 (13:30)
[2020-04-23] MEDS ORDERED: Ondansetron PF 4 MG/2 ML Vial IVP PRN (13:30)
[2020-04-23] MEDS ORDERED: Guaifenesin DM 100-10/5 ML UDCUP PO PRN (13:30)
[2020-04-23] MEDS ORDERED: Senokot S 8.6-50 MG TAB PO PRN (13:30)
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
[2020-04-23 17:31] LABS: Bilirubin Negative (Negative); Blood, Urine Negative (Negative); Ketone, Urine Negative (Negative); Leukocyte Negative (Negative); Protein, Urine (Dipstick) > or equal to 300 mg/dL (Neg-Trace); pH, Urine 6.5 (5.0-9.0)
[2020-04-23 17:33] LABS: Clarity Clear (Clear); Nitrite Unable to Interpret (Negative)
[2020-04-23 17:34] LABS: Glucose, Urine (Dipstick) Negative (Negative); Specific Gravity, Urine 1.012 (1.002-1.036)
[2020-04-23 17:38] LABS: Bacteria/HPF None Seen HPF (None Seen); RBC/HPF 0-3 HPF (0-3); Squamous Epithelial None Seen HPF (0-3); WBC/HPF 0-3 HPF (0-3)
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
[2020-04-23] MEDS: Carvedilol 6.25 MG TAB PO SCH (18:20)
[2020-04-23] MEDS: Brimonidine Tartrate 0.2% Ophth Soln 5 ml Bottle EA EYE SCH (18:29)
[2020-04-23] MEDS: Gabapentin 300 MG CAP PO SCH ×2 (18:30→21:42)
[2020-04-23] MEDS: Phenazopyridine HCl 100 MG TAB PO SCH (18:50)
[2020-04-23 20:33] VITALS: BMI 26.4
[2020-04-23] MEDS ORDERED: Atorvastatin Calcium 40 MG TAB PO SCH (21:00)
[2020-04-23] MEDS ORDERED: Latanoprost 0.005% Ophth Soln 2.5 ml Bottle EA EYE SCH (21:00)
[2020-04-23] MEDS: busPIRone HCl 10 MG TAB PO SCH (21:42)
[2020-04-23] MEDS: Famotidine 20 MG TAB PO SCH (21:42)
[2020-04-24 00:43] LABS: SARS-CoV-2 MS2 Positive; SARS-CoV-2 N Gene Negative; SARS-CoV-2 S Gene Negative; SARS-CoV-2 by NAA Not Detected (NotDetected); SARS-CoV-2 orf1ab Negative
[2020-04-24] MEDS: Brimonidine Tartrate 0.2% Ophth Soln 5 ml Bottle EA EYE SCH ×3 (00:49→14:15)
[2020-04-24 05:31] LABS: #Basophils 0.1 thou/uL (0.0-0.2); #Eosinphils 0.1 thou/uL (0.0-0.7); #Lymphocytes 4.9 thou/uL (1.20-3.40); #Monocytes 0.8 thou/uL (0.11-0.59); %Basophils 1.1 % (0.0-1.0); %Eosinophils 1.3 % (0.0-10.0); %Lymphocytes 49.3 % (21.0-51.0); %Monocytes 7.8 % (0.0-10.0); %Neutrophils 40.5 % (42.0-75.0); Hemoglobin 10.4 g/dL (14.0-18.0); Mean Corpuscular HGB CONC 31.9 g/dL (32.0-36.0); Mean Corpuscular Hemoglobin 31.7 pg (27.0-31.0); Mean Corpuscular Volume 99.4 fL (78.0-98.0); Mean Platelet Volume 7.4 fL (7.4-10.4); Platelet Count 301 thou/uL (130-400); RBC Distribution Width 12.3 % (11.5-14.5); Red Blood Cell (RBC) Count 3.27 mill/uL (4.70-6.10); White Blood Cell (WBC) Count 9.9 thou/uL (4.8-10.8)
[2020-04-24 05:51] LABS: Anion Gap 12 mmol/L (10-20); BUN (Urea Nitrogen) 18 mg/dL (8.4-25.7); Calc. Creatinine Clearance 57 mL/min (70-130); Carbon Dioxide 22 mmol/L (23-31); Cardiac Risk 4.3 (Less than 4.5); Chloride 107 mmol/L (98-107); Cholesterol 125 mg/dl (< 200 Desired); Estimated GFR-MDRD 70; Glucose 81 mg/dL (83-110); HDL Cholesterol 29 mg/dL (>60 Neg Risk); LDL Cholesterol, Calculated 77 mg/dL; Potassium 3.7 mmol/L (3.5-5.1); Sodium 137 mmol/L (136-145); Triglycerides 96 mg/dL (Less than 150)
[2020-04-24] MEDS: Carvedilol 6.25 MG TAB PO SCH ×2 (08:57→16:46)
[2020-04-24] MEDS: Phenazopyridine HCl 100 MG TAB PO SCH ×3 (08:58→16:47)
[2020-04-24] MEDS: Gabapentin 300 MG CAP PO SCH ×2 (08:58→14:15)
[2020-04-24] MEDS: busPIRone HCl 10 MG TAB PO SCH (08:59)
[2020-04-24] MEDS: Famotidine 20 MG TAB PO SCH (08:59)
[2020-04-24] MEDS ORDERED: Amlodipine 5 MG TAB PO SCH (09:00)
[2020-04-24] MEDS ORDERED: Polyethylene Glycol 3350 17 GM Packet PO SCH (09:00)
[2020-04-24] MEDS ORDERED: Tamsulosin HCl 0.4 MG CAP PO SCH (09:00)
[2020-04-24] MEDS ORDERED: DULoxetine 30 MG CAP PO SCH (09:00)
[2020-04-24] MEDS ORDERED: Aspirin 81 mg Enteric Coated Tablet PO SCH (09:00)
[2020-04-24] MEDS ORDERED: Enoxaparin Sodium 40 MG/0.4 ML SYRINGE SC SCH (09:00)
--- NOTE | 2020-04-24 09:09 | MRI ---
MRI OF BRAIN WITHOUT CONTRAST: INDICATION: TIA. History of prior stroke. COMPARISON: Comparison is made to prior MRI of 07/29/2018. Correlation is made to CT of 04/23/2020. FINDINGS: Moderate cortical atrophy. Moderately severe chronic ischemic white matter changes appear stable. E ncephalomalacia is seen in both cerebellar hemispheres more prominent on the left from old cerebellar infarct. 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 Old right ba shalom ganglia infarcts with volume loss. There is no evidence of restricted diffusion. No evidence of acute infarct, mass, or hemorrhage. IMPRESSION: No evidence of acute infarct. POS: JUAN RAMONW
[2020-04-24] MEDS ORDERED: Lorazepam 1 MG TAB PO PRN (09:21)
[2020-04-24] MEDS ORDERED: Promethazine 25 MG TAB PO PRN (09:21)
[2020-04-24] MEDS ORDERED: Diabetic Tussin 200 MG/10 ML UDCUP PO PRN (09:21)
[2020-04-24] MEDS ORDERED: Acetaminophen 325 MG TAB PO PRN (09:21)
[2020-04-24] MEDS ORDERED: Non-Formulary Item 1 EACH (Acetaminophen With Codeine [Acetaminophen/Codeine #4] 300 MG/6 PO PRN (09:21)
[2020-04-24] MEDS ORDERED: Haloperidol Lactate 5 MG/ML VIAL IM PRN (09:21)
[2020-04-24] MEDS ORDERED: Artificial Tear Sol 15 ML BOT EA EYE PRN (09:33)
[2020-04-24 10:44] LABS: Troponin I 0.075 ng/mL (< 0.028)
[2020-04-24 11:42] VITALS: TEMP 98.4
--- NOTE | 2020-04-24 13:16 | PDOC.EEG ---
Neurology EEG Report - Report Report: This EEG was performed using 24 channel [employer] video digital EEG machine with 24 disc electrodes. This was an extended 2-hour 5 minutes of inpatient video EEG recording. Digital analysis of the EEG was done for Sergo and seizure detection which revealed no abnormalities Background: The posterior background rhythm was not observed. Hyperventilation: Not performed. Photic stimulation. No significant response. EEG diagnosis: Generalized irregular theta activity seen during the recording. Absence of posterior background rhythm. Clinical interpretation: This EEG is consistent with moderate generalized nonspecific cerebral dysfunction.
--- NOTE | 2020-04-24 13:25 | PDOC.NEUPN ---
- Subjective Encounter Date: 04/24/20 Subjective: Patient more alert and awake today. - Objective Vital Signs & Weight: Vital Signs (12 hours) Temp Pulse Resp BP Pulse Ox 04/24/20 11:41 98.4 F 73 15 129/85 96 04/24/20 07:48 97.3 F L 72 16 158/83 H 95 04/24/20 04:00 98.6 F 74 16 135/86 96 Weight Weight 163 lb 6.4 oz I&O: 04/23/20 04/24/20 04/25/20 06:59 06:59 06:59 Intake Total 387 Balance 387 Result Diagrams: 04/24/20 05:11 04/24/20 05:11 Additional Labs: Accuchecks 04/24/20 04/24/20 04/23/20 10:46 06:24 21:52 POC Glucose 115 H 75 88 Radiology Reviewed by me: Yes EKG Reviewed by me: Yes ROS - Review of Systems Constitutional: denies: fever, chills, sweats, weakness, malaise, other Eyes: denies: pain, vision change, conjunctivae inflammation, eyelid inflammation, redness, other ENT: denies: ear pain, ear discharge, nose pain, nose discharge, nose congestion, mouth pain, mouth swelling, throat pain, throat swelling, other All Systems: All other systems reviewed; all pertinent +/- noted in HPI/Subj - Medication Medications: Active Medications Generic Name Dose Route Start Last Admin Trade Name Freq PRN Reason Stop Dose Admin Amlodipine Besylate 5 mg 04/24/20 09:00 04/24/20 08:59 Amlodipine 5 Mg Tab PO 5 mg DAILY STANLEY Administration Aspirin 81 mg 04/24/20 09:00 04/24/20 08:57 Aspirin 81 Mg Enteric Coated Tablet PO 81 mg DAILY STANLEY Administration Atorvastatin Calcium 40 mg 04/23/20 21:00 04/23/20 21:41 Atorvastatin Calcium 40 Mg Tab PO 40 mg HS STANLEY Administration Brimonidine Tartrate 1 drop 04/23/20 15:00 04/24/20 08:55 Brimonidine Tartrate 0.2% Ophth Soln 5 Ml Bottle EA EYE 1 drop TID STANLEY Administration Buspirone HCl 10 mg 04/23/20 21:00 04/24/20 08:59 Buspirone Hcl 10 Mg Tab PO 10 mg BID STANLEY Administration Carvedilol 12.5 mg 04/23/20 17:00 04/24/20 08:57 Carvedilol 6.25 Mg Tab PO 12.5 mg BID-WM STANLEY Administration Duloxetine HCl 30 mg 04/24/20 09:00 04/24/20 08:59 Duloxetine 30 Mg Cap PO 30 mg QAM STANLEY Administration Enoxaparin Sodium 40 mg 04/24/20 09:00 04/24/20 09:00 Enoxaparin Sodium 40 Mg/0.4 Ml Syringe SC 40 mg 0900 STANLEY Administration Gabapentin 300 mg 04/23/20 15:00 04/24/20 08:58 Gabapentin 300 Mg Cap PO 300 mg TID STANLEY Administration Latanoprost 1 drop 04/23/20 21:00 04/23/20 21:42 Latanoprost 0.005% Ophth Soln 2.5 Ml Bottle EA EYE 1 drop HS STANLEY Administration Phenazopyridine HCl 100 mg 04/23/20 18:00 04/24/20 12:31 Phenazopyridine Hcl 100 Mg Tab PO 100 mg PC STANLEY Administration Polyethylene Glycol 17 gm 04/24/20 09:00 04/24/20 09:00 Polyethylene Glycol 3350 17 Gm Packet PO 17 gm DAILY STANLEY Administration Tamsulosin HCl 0.4 mg 04/24/20 09:00 04/24/20 08:57 Tamsulosin Hcl 0.4 Mg Cap PO 0.4 mg DAILY STANLEY Administration - Exam Eye: negative: PERRL, anicteric sclera, scleral icterus ENT: negative: normocephalic atraumatic, no oropharyngeal lesions, moist mucosa, dry oral mucosa Neck: negative: supple, symmetric, no JVD, no thyromegaly, no lymphadenopathy, no carotid bruit, JVD Cardiovascular: RRR. negative: irregular, diminshed peripheral pulses, murmur present, II/IV, III/IV Gastrointestinal: soft Extremities: no cyanosis Skin: normal turgor Neurological: no new deficit, facial droop, hemiplegia, speech deficit Neurological - other findings: left hemiparesis Musculoskeletal: no muscle wasting PSYCH: normal affect, normal behavior, oriented to person Results - Labs Result Diagrams: 04/24/20 05:11 04/24/20 05:11 Lab results: WBC 9.9 thou/uL (4.8-10.8) 04/24/20 05:11 Hgb 10.4 g/dL (14.0-18.0) L 04/24/20 05:11 Hct 32.5 % (42.0-52.0) L 04/24/20 05:11 MCV 99.4 fL (78.0-98.0) H 04/24/20 05:11 Plt Count 301 thou/uL (130-400) 04/24/20 05:11 Neutrophils % 40.5 % (42.0-75.0) L 04/24/20 05:11 Sodium 137 mmol/L (136-145) 04/24/20 05:11 Potassium 3.7 mmol/L (3.5-5.1) 04/24/20 05:11 Chloride 107 mmol/L (98-107) 04/24/20 05:11 Carbon Dioxide 22 mmol/L (23-31) L 04/24/20 05:11 BUN 18 mg/dL (8.4-25.7) 04/24/20 05:11 Creatinine 1.24 mg/dL (0.7-1.3) 04/24/20 05:11 Glucose 81 mg/dL (83-110) L 04/24/20 05:11 Calcium 9.0 mg/dL (7.8-10.44) 04/24/20 05:11 Total Bilirubin 0.5 mg/dL (0.2-1.2) 04/23/20 11:55 AST 25 U/L (5-34) 04/23/20 11:55 ALT 14 U/L (8-55) 04/23/20 11:55 Alkaline Phosphatase 102 U/L (40-110) 04/23/20 11:55 CK-MB (CK-2) 2.2 ng/mL (0-6.6) 04/23/20 11:55 Troponin I 0.075 ng/mL (< 0.028) H 04/24/20 10:03 Serum Total Protein 6.3 g/dL (5.8-8.1) 04/23/20 11:55 Albumin 2.8 g/dL (3.4-4.8) L 04/23/20 11:55 Urine Ketones Negative mg/dL (Negative) 04/23/20 16:57 Urine Blood Negative (Negative) 04/23/20 16:57 Urine Nitrite Unable to Interpret (Negative) 04/23/20 16:57 Ur Leukocyte Esterase Negative (Negative) 04/23/20 16:57 Urine RBC 0-3 HPF (0-3) 04/23/20 16:57 Urine WBC 0-3 HPF (0-3) 04/23/20 16:57 Ur Squamous Epith Cells None Seen HPF (0-3) 04/23/20 16:57 Urine Bacteria None Seen HPF (None Seen) 04/23/20 16:57 - Radiology Interpretation MRI - head Additional Comment: No acute intracranial pathology. PN A/P (1) TIA (transient ischemic attack) Code(s): G45.9 - TRANSIENT CEREBRAL ISCHEMIC ATTACK, UNSPECIFIED Status: Acute (2) Acute on chronic renal failure Code(s): N17.9 - ACUTE KIDNEY FAILURE, UNSPECIFIED; N18.9 - CHRONIC KIDNEY DISEASE, UNSPECIFIED Status: Acute (3) Cocaine use disorder, mild, abuse Code(s): F14.10 - COCAINE ABUSE, UNCOMPLICATED Status: Acute (4) Diabetes mellitus type 2, uncontrolled Code(s): E11.65 - TYPE 2 DIABETES MELLITUS WITH HYPERGLYCEMIA Status: Chronic (5) History of CVA (cerebrovascular accident) Code(s): Z86.73 - PRSNL HX OF TIA (TIA), AND CEREB INFRC W/O RESID DEFICITS Status: Chronic (6) Hyperlipemia Code(s): E78.5 - HYPERLIPIDEMIA, UNSPECIFIED Status: Chronic Qualifiers: Hyperlipidemia type: mixed hyperlipidemia Qualified Code(s): E78.2 - Mixed hyperlipidemia (7) Hypertension Code(s): I10 - ESSENTIAL (PRIMARY) HYPERTENSION Status: Chronic Qualifiers: Hypertension type: essential hypertension Qualified Code(s): I10 - Essential (primary) hypertension (8) Peripheral neuropathy Code(s): G62.9 - POLYNEUROPATHY, UNSPECIFIED Status: Chronic (9) Tobacco abuse Code(s): Z72.0 - TOBACCO USE Status: Chronic (10) 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 Code(s): E11.39 - TYPE 2 DIABETES W OTH DIABETIC OPHTHALMIC COMPLICATION; H54.7 - UNSPECIFIED VISUAL LOSS Status: Chronic (11) Acute blood loss anemia Code(s): D62 - ACUTE POSTHEMORRHAGIC ANEMIA Status: Resolved (12) Altered mental status Code(s): R41.82 - ALTERED MENTAL STATUS, UNSPECIFIED Status: Resolved Qualifiers: Altered mental status type: disorientation Qualified Code(s): R41.0 - Disorientation, unspecified (13) Demand ischemia Code(s): I24.8 - OTHER FORMS OF ACUTE ISCHEMIC HEART DISEASE Status: Resolved - Plan Daily Plan: PT/OT, speech therapy 70 year old consulted for worsening left hemiparesis and confusion which is much improved. Most likely TIA. MRI Brain reviewed which was negative for intracranial process. EEG reviewed which was negative for seizure activity. Continue aspirin, statin and plavix for secondary stroke prevention. Previous 2D Echo and carotid dopplers results reviewed. Neurochecks every 4 hours. Strict control of BP and BG. Continue home medications Telemetry PT/OT/Speech. Continue medical management per primary team. DVT prophylaxis GI Prophylaxis.
[2020-04-24 14:48] LABS: Troponin I 0.064 ng/mL (< 0.028)
--- NOTE | 2020-04-24 14:55 | PDOC.DS.DS ---
Provider - Provider Date of Admission: 04/23/20 12:20 Date of Discharge: 04/24/20 Admitting Provider: Aaron Thornton MD Consultations: Neurology Primary Care Physician: Nadya Gabriel MD Course - Hospital Course Hospital Course: Patient is a very pleasant 70-year-old male who lives in the retirement who presented to the hospital with change in mental status. This was transient. Patient was also found to be hypotensive however per ER notes his blood pressure was taking on multiple clothings. His urine and chest x-ray were normal. There was a concern for left-sided facial droop patient has had a history of strokes in the past. He was recently discharged from the hospital with stroke. Also was recently in the hospital for Enterococcus bacteremia. Patient had no leukocytosis on admission. He underwent an MRI brain which was negative. An echocardiogram was not repeated because he recently had one couple months ago. Patient will be discharged to his retirement follow-up outpatient. EEG negative for any seizure. Patient will be placed on Plavix in addition to the aspirin only for a month and then he will go back to his aspirin and statin. Resuscitation Status: 04/23/20 13:25 Resuscitation Status Routine Resuscitation Status: FULL: Full Resuscitation - Labs Lab Results: 04/24/20 05:11 04/24/20 05:11 Abnormal Lab Results - Last 48 hrs 04/23/20 11:54: RBC 3.63 L, Hgb 11.5 L, Hct 35.8 L, MCV 98.8 H, MCH 31.7 H, MPV 7.3 L, Basophils % 1.3 H, Monocytes # 0.8 H 04/23/20 11:55: Carbon Dioxide 21 L, Creatinine 1.32 H, Albumin 2.8 L, Albumin/Globulin Ratio 0.8 L 04/23/20 11:55: Troponin I 0.068 H 04/23/20 16:57: Urine Color [place] A, Urine Protein > or equal to 300 A, Prot Sulfosalicylic Acd 3+ H, Hyaline Casts 4-6 A 04/24/20 05:11: Carbon Dioxide 22 L 04/24/20 05:11: RBC 3.27 L, Hgb 10.4 L, Hct 32.5 L, MCV 99.4 H, MCH 31.7 H, MCHC 31.9 L, Neutrophils % 40.5 L, Basophils % 1.1 H, Lymphocytes # 4.9 H, Monocytes # 0.8 H 04/24/20 10:03: Troponin I 0.075 H 04/24/20 14:00: Troponin I 0.064 H - Physical Exam Vitals: Vital Signs (12 hours) Temp Pulse Resp BP Pulse Ox 04/24/20 11:41 98.4 F 73 15 129/85 96 04/24/20 07:48 97.3 F L 72 16 158/83 H 95 04/24/20 04:00 98.6 F 74 16 135/86 96 Weight Weight 163 lb 6.4 oz Physical Exam: The patient was seen and examined on the day of discharge. Problem - Discharge Plan Assessment: 1. TIA #2 Hypotension resolved Plan - Discharge Medications Prescriptions: Clopidogrel Bisulfate [Plavix] 75 mg PO DAILY #30 tab Home Medications: Medication Instructions Recorded Confirmed Type Latanoprost [Latanoprost 0.05% 1 drop EA EYE HS 01/03/17 04/24/20 History Ophth] amLODIPine Besylate [Amlodipine 5 mg PO QAM 01/03/17 04/24/20 History Besylate] metFORMIN [Glucophage] 500 mg PO BID-WM tab 01/06/17 04/24/20 Rx Brimonidine Tartrate [Alphagan 1 drop EA EYE TID 12/01/17 04/24/20 History 0.2% Ophth Soln] Famotidine 40 mg PO DAILY 12/01/17 04/24/20 History Aspirin [Ecotrin Regular Strength] 325 mg PO DAILY #0 tab 08/02/18 04/24/20 Rx Atorvastatin Calcium [Lipitor] 40 mg PO HS tab 08/02/18 04/24/20 Rx Promethazine [Phenergan] 25 mg PO Q12HR PRN 10/28/19 04/24/20 History Tamsulosin HCl [Flomax] 0.4 mg PO DAILY 10/28/19 04/24/20 History DULoxetine HCl [Cymbalta] 30 mg PO QAM 03/22/20 04/24/20 History Gabapentin [Neurontin] 300 mg PO TID 03/22/20 04/24/20 History busPIRone HCl [Buspirone HCl] 10 mg PO BID 03/22/20 04/24/20 History Acetaminophen [Tylenol Regular 650 mg PO Q4H PRN tab 03/29/20 04/24/20 Rx Strength] Carvedilol [Coreg] 12.5 mg PO BID-WM tab 03/29/20 04/24/20 Rx Lidocaine 5% Patch [Lidoderm 5% 2 patch TD DAILY 14 Days #28 patch 03/29/20 04/24/20 Rx Patch] Losartan Potassium 100 mg PO DAILY #30 tablet 03/29/20 04/24/20 Rx Phenazopyridine HCl [Pyridium] 100 mg PO PC #30 tab 03/29/20 04/24/20 Rx Acetaminophen With Codeine 1 tab PO Q6H PRN 04/24/20 04/24/20 History [Acetaminophen/Codeine #4] Clopidogrel Bisulfate [Plavix] 75 mg PO DAILY #30 tab 04/24/20 Rx Glycerin/Propylene Glycol 1 drop EA EYE Q6H PRN 04/24/20 04/24/20 History [Artificial Tears Drops] Haloperidol Lactate [Haldol] 5 mg IM Q6H PRN 04/24/20 04/24/20 History LORazepam [Lorazepam] 1 mg PO Q6H PRN 04/24/20 04/24/20 History Loratadine [Claritin] 10 mg PO DAILY 04/24/20 04/24/20 History Magnesium Hydroxide [Milk of 30 ml PO QAM 04/24/20 04/24/20 History Magnesia] guaiFENesin [Guaifenesin] 10 ml PO Q6H PRN 04/24/20 04/24/20 History Allergies: No Known Allergies Allergy (Verified 03/22/20 01:56) - Discharge Instructions Discharge Instructions:: aspirin and plavix only for one month then may use only aspirin. Activity:: Activity as Tolerated - Follow up Plan Referrals: Nadya Gabriel MD [Primary Care Provider] - Disposition: HOME Quality - Care Measures CORE MEASURES:: Stroke/TIA - Stroke/TIA Did you prescribe antithrombotic therapy?: No Specify reason for no DC antithrombotic therapy: Treatment not indicated Did you prescribe anticoagulant for A Fib/Flutter?: No Specify reason for no DC anticoagulant: Treatment not indicated Did you prescribe a statin medication?: Yes
[2020-04-24 16:49] VITALS: BP 164/74
[2020-04-24] MEDS ORDERED: FLU VACC QS2020-21(65YR UP)/PF 240 MCG/0.7 ML SYRINGE IM ONE (21:00)
[2020-04-24] MEDS ORDERED: Lidocaine Patch Removal 1 EACH TOP SCH (22:00)
[2020-04-25] MEDS ORDERED: Losartan 25 MG TAB PO SCH (09:00)
[2020-04-25] MEDS ORDERED: Loratadine 10 MG TAB PO SCH (09:00)
[2020-04-25] MEDS ORDERED: Milk Of Magnesia 30 ML UDCUP PO SCH (09:00)
[2020-04-25] MEDS ORDERED: Famotidine 20 MG TAB PO SCH (09:00)
[2020-04-25] MEDS ORDERED: Lidocaine 5% Patch TD SCH (10:00)
--- NOTE | 2020-04-28 15:05 | EKG ---
Test Reason : Blood Pressure : / mmHG Vent. Rate : 063 BPM Atrial Rate : 063 BPM P-R Int : 144 ms QRS Dur : 086 ms QT Int : 408 ms P-R-T Axes : 030 -36 018 degrees QTc Int : 417 ms Normal sinus rhythm Left axis deviation Voltage criteria for left ventricular hypertrophy Inferior infarct , age undetermined Abnormal ECG Confirmed by ALEIDA HERNANDEZ M.D. ([id number]), [employer] OSBORN ([id number]) on 04/28/2020 3:05:22 PM Referred By: Confirmed By:ALEIDA HERNANDEZ M.D.
== END 2020-04-24 18:46 ==
LOC: ERS 10:48 → 2SE 12:20 → INTOOBSV 12:20
PROVIDERS: ADMIT Internal Medicine; ATTEND Internal Medicine
DX: G45.9 Transient cerebral ischemic attack, unspecified (principal); I95.9 Hypotension, unspecified; F17.210 Nicotine dependence, cigarettes, uncomplicated; I12.9 Hypertensive chronic kidney disease with stage 1 through stage 4 chronic kidney disease, or unspecified chronic kidney disease; E11.22 Type 2 diabetes mellitus with diabetic chronic kidney disease; N18.9 Chronic kidney disease, unspecified; N17.9 Acute kidney failure, unspecified; E11.42 Type 2 diabetes mellitus with diabetic polyneuropathy; E11.39 Type 2 diabetes mellitus with other diabetic ophthalmic complication; F14.10 Cocaine abuse, uncomplicated; E78.2 Mixed hyperlipidemia; H54.7 Unspecified visual loss; D62 Acute posthemorrhagic anemia; Z79.82 Long term (current) use of aspirin; Z79.84 Long term (current) use of oral hypoglycemic drugs; Z79.899 Other long term (current) drug therapy; Z20.828 Contact with and (suspected) exposure to other viral communicable diseases
CPT/HCPCS: 70450; 70551; 71045; 80048; 80053; 80061; 82553; 82962 ×2; 84484 ×3; 85025 ×2; 93005; 94760; 95712; 95819; 95957; 97139 ×3; 97530; 99285; U0003; 36415; 36416; 81003; 81015; 87635; 96372; G0378; J1650